=== PATIENT | male | born 1940 | race Caucasian/White ===

== ENCOUNTER 2017-10-24 21:24 | Inpatient (IN) | payer OTHER ==
[2017-10-24 21:30] VITALS: BMI 28.3
--- NOTE | 2017-10-24 21:58 | PDOC ---
Attending Attestation - HPI HPI: 10/24/17 23:16 Mr Argueta is a 77-year-old gentleman who presents to the ER via EMS with cervical collar in place Pt reports that he fell He has little memory of the events According to his alf pt fell from standing and struck the back of his head, sustained hematoma On evaluation, the patient complains that he had headache and some lightheadedness, now improved. Otherwise no physical complaints on evaluation. He had arrived to the ED with a c-collar in place, but removed it by himself and turned himself onto his side Remainder of history limited secondary to mental status. - Physicial Exam PE: 10/24/17 23:14 GENERAL: The patient is in no acute distress. Pt arrived to ED in c-collar, but has since removed collar and turned to his side. HEAD: Small 1cm x 1 cm hematoma to posterior scalp. EYES: PERRLA, EOMI, sclera anicteric, conjunctiva clear. ENT: Ears normal, nares patent, oropharynx clear without exudates. Moist mucous membranes. NECK: Cervical collar removed. Normal range of motion, supple without lymphadenopathy, JVD, or masses. No midline cervical tenderness. LUNGS: Breath sounds equal, clear to auscultation bilaterally. No wheezes, and no crackles. HEART:Regular rate and rhythm, normal S1 and S2 without murmur, rub or gallop. ABDOMEN: Soft, nontender, normoactive bowel sounds. No guarding, no rebound. No masses palpable. EXTREMITIES: Normal range of motion, no edema. No clubbing or cyanosis. No erythema, or tenderness. NEUROLOGICAL: Cranial nerves II through XII grossly intact. Normal speech. No focal neurological deficits. MUSCULOSKELETAL: Back non-tender to palpation, no CVA tenderness SKIN: Warm, Dry, normal turgor, no rashes or lesions noted. - Medical Decision Making 10/24/17 23:19 Documentation prepared by Verenice Servin, acting as medical artist for Yara Stoddard MD. <Verenice Servin - Last Filed: 10/24/17 23:14> - Resident Resident Name: Adilson Sanchez - ED Attending Attestation I have performed the following: I have examined & evaluated the patient, The case was reviewed & discussed with the resident, I agree w/resident's findings & plan, Exceptions are as noted - HPI HPI: 10/24/17 21:45 Mr Argueta is a 77-year-old gentleman who presents to the ER via EMS with cervical collar in place Pt reports that he fell He has little memory of the events According to his alf pt fell from standing and struck the back of his head, sustained hematoma - Medical Decision Making 10/25/17 00:37 77 yo M brought in to the ER s/p fall Pt has no memory of falling While examined him, he reports dizziness No chest pain On examination: Pt brought in to the ER with a cervical collar (which he removed) Pt has now vomited 3 times in the ER Repeatedly voiding small amounts Nursing placed mendoza cathether with return of > 500 cc urine RRR CTA No midline tenderness of the C/T/L spine No abd tenderness Pelvis is stable Pt moving all extremities, rolled over in bed Pt will need Labs CT head Pt has vomited multiple times Will do CT scan Will do EKG Will re assess 10/25/17 00:41 Laboratory Tests 10/24/17 10/24/17 10/24/17 20:26 20:26 20:26 WBC 12.3 H Hgb 13.3 Hct 39.8 Plt Count 105 L Neutrophils % 85.8 H Lymphocytes % 9.5 INR 0.98 Sodium 134 L Potassium 5.2 H Chloride 99 Carbon Dioxide 26 BUN 30 H Creatinine 1.9 H Random Glucose 282 H Creatine Kinase 48 Troponin I < 0.02 Urine Blood Urine Nitrite Ur Leukocyte Esterase Urine WBC (Auto) Urine RBC (Auto) 10/24/17 22:52 WBC Hgb Hct Plt Count Neutrophils % Lymphocytes % INR Sodium Potassium Chloride Carbon Dioxide BUN Creatinine Random Glucose Creatine Kinase Troponin I Urine Blood 1+ H Urine Nitrite Negative Ur Leukocyte Esterase Trace Urine WBC (Auto) 7 Urine RBC (Auto) [address] scans 10/25/17 00:41 Pt bp elevated Will need to be repeated pt place on monitor 10/25/17 01:01 Repeat blood pressure 235/100 Ordered for Labetolol Admitted to hospitalist service <Yara Stoddard - Last Filed: 10/29/17 23:20>
[2017-10-24 22:34] LABS: BASO % 0.2 % (0-2.0); HEMATOCRIT 39.8 % (35.4-49); HEMOGLOBIN 13.3 GM/dL (11.7-16.9); LYMPH % 9.5 % (8-40); MCH 27.6 pg (25.7-33.7); MCHC 33.5 g/dl (32.0-35.9); MEAN CELL VOLUME 82.3 fl (80-96); MEAN PLT VOLUME 9.7 fl (7.5-11.1); MONO % 3.5 % (3.8-10.2); NEUT % 85.8 % (42.8-82.8); PLATELET COUNT 105 K/MM3 (134-434); RBC 4.84 M/mm3 (4.00-5.60); RDW 15.7 % (11.9-15.9); WHITE BLOOD COUNT 12.3 K/mm3 (4.0-10.0)
--- NOTE | 2017-10-24 22:36 | PDOC ---
History of Present Illness - General Chief Complaint: Injury Stated Complaint: FALL Time Seen by Provider: 10/24/17 21:37 History Source: Patient Exam Limitations: Dementia - History of Present Illness Initial Comments: 10/24/17 22:30 Patient is a 77M with history of cardiac arrhythmias, depression, HLD, CAD s/p CABG, Alzheimer's disease, DM here today complaining of fall. Patient states that he does not know what happened, he only says that he was told he fell and that his head hurts. He denies chest pain, shortness of breath, nausea, vomiting. He denies pain in any extremities. History is limited by patient's mental status. Past History - Past Medical History Allergies/Adverse Reactions: Allergies Allergy/AdvReac Type Severity Reaction Status Date / Time No Known Allergies Allergy Verified 10/24/17 22:30 - Suicide/Smoking/Psychosocial Hx Smoking History: Unknown if ever smoked Have you smoked in the past 12 months: No Information on smoking cessation initiated: No Hx Alcohol Use: No Drug/Substance Use Hx: No Review of Systems - Review of Systems Comments:: 10/24/17 22:36 GENERAL/CONSTITUTIONAL: No fever or chills. No weakness. HEAD, EYES, EARS, NOSE AND THROAT: No change in vision. No sore throat. CARDIOVASCULAR: No chest pain or shortness of breath RESPIRATORY: No cough, wheezing, or hemoptysis. GASTROINTESTINAL: No nausea, vomiting, diarrhea or constipation. GENITOURINARY: No dysuria, frequency, or change in urination. MUSCULOSKELETAL: No joint or muscle swelling or pain. No neck or back pain. SKIN: No rash NEUROLOGIC: Positive for headache and loss of consciousness. Negative for change in strength/sensation. ENDOCRINE: No increased thirst. No abnormal weight change ALLERGIC/IMMUNOLOGIC: No hives or skin allergy. *Physical Exam - Vital Signs Last Vital Signs Temp Pulse Resp BP Pulse Ox 98.9 F 80 20 204/92 98 10/24/17 21:27 10/24/17 21:27 10/24/17 21:27 10/24/17 21:27 10/24/17 21:27 - Physical Exam Comments: 10/24/17 22:38 GENERAL: Awake, alert, and fully oriented, in no acute distress HEAD: Small hematoma on posterior aspect of head EYES: PERRLA, EOMI, sclera anicteric, conjunctiva clear ENT: Auricles normal inspection, hearing grossly normal, nares patent, oropharynx clear without exudates. Moist mucosa NECK: Normal ROM, supple, no lymphadenopathy, JVD, or masses, nontender midline LUNGS: No distress, speaks full sentences, clear to auscultation bilaterally HEART: Regular rate and rhythm, normal S1 and S2, no murmurs, rubs or gallops, peripheral pulses normal and equal bilaterally. ABDOMEN: Soft, nontender, normoactive bowel sounds. No guarding, no rebound. No masses EXTREMITIES: Normal inspection, Normal range of motion, no edema. No clubbing or cyanosis. Moves all extremities without pain NEUROLOGICAL: Cranial nerves II through XII grossly intact. Normal speech, no focal sensorimotor deficits SKIN: Warm, Dry, normal turgor, no rashes or lesions noted. ED Treatment Course - LABORATORY CBC & Chemistry Diagram: 10/24/17 20:26 10/24/17 20:26 - RADIOLOGY Radiology Studies Ordered: Category Date Time Status CERVICAL SPINE CT W/O CONTR [CT] Stat CT Scan 10/24/17 21:[address] WITHOUT CONTRAST [CT] Stat CT Scan 10/24/17 21:44 Ordered CHEST X-RAY PORTABLE* [RAD] Stat Radiology 10/24/17 21:44 Taken Medical Decision Making - Medical Decision Making 10/24/17 22:38 Patient is 77M with history of cardiac arrhythmias, depression, HLD, CAD s/p CABG, Alzheimer's disease, DM here today complaining of fall. Questionable drop syncope. Vital signs notable for hypertension. Patient has no focal neuro deficits, appears generally well but confused. DDx is broad due to lack of history from patient and includes vasovagal syncope, mechanical fall, PE, ACS arrhythmia. Will workup with CBC, CMP, UA, UC, CXR, EKG, Trop, D-dimer. Will image for trauma with CT head and cervical spine. 10/24/17 23:29 Laboratory Tests 10/24/17 10/24/17 10/24/17 20:26 20:26 20:26 WBC 12.3 H Hgb 13.3 Hct 39.8 Plt Count 105 L Neutrophils % 85.8 H D-Dimer 1188 H Sodium 134 L Potassium 5.2 H BUN 30 H Creatinine 1.9 H Random Glucose 282 H Urine Protein Urine Glucose (UA) Urine Nitrite Ur Leukocyte Esterase Urine WBC (Auto) Urine RBC (Auto) 10/24/17 22:52 WBC Hgb Hct Plt Count Neutrophils % D-Dimer Sodium Potassium BUN Creatinine Random Glucose Urine Protein 2+ H Urine Glucose (UA) 3+ H Urine Nitrite Negative Ur Leukocyte Esterase Trace Urine WBC (Auto) 7 Urine RBC (Auto) 10 CBC notable for leukocytosis. CMP notable for elevated Cr (no baseline), mild hyperkalemia to 5.2, UA positive. No gap. D-dimer positive to 1188, unable to do CTA at this point due to Cr level. Patient has vomited. Will treat with fluids and zofran. CT head/neck pending. Dry CT abdomen added. 10/24/17 23:37 CXR shows no acute acute cardiopulmonary process. 10/24/17 23:[address] Mccarthy. Pending head, neck, cervical ct. *DC/Admit/Observation/Transfer Diagnosis at time of Disposition: Fall - Discharge Dispostion Condition at time of disposition: Stable - Referrals Referrals: Yaya Rebolledo MD [Primary Care Provider] - - Patient Instructions - Post Discharge Activity
[2017-10-24 22:47] LABS: INR 0.98 (0.82-1.09); PROTHROMBIN TIME (PATIENT) 11.1 SEC (9.98-11.88)
[2017-10-24 22:58] LABS: URINE APPEARANCE CLEAR; URINE BILIRUBIN NEGATIVE (NEGATIVE); URINE BLOOD 1+ (NEGATIVE); URINE COLOR STRAW; URINE GLUCOSE (UA) 3+ (NEGATIVE); URINE KETONE NEGATIVE (NEGATIVE); URINE LEUK ESTERASE TRACE (NEGATIVE); URINE NITRITE NEGATIVE (NEGATIVE); URINE UROBILINOGEN NEGATIVE mg/dL (0.2-1.0)
[2017-10-24 23:02] LABS: URINE PROTEIN 2+ (NEGATIVE)
[2017-10-24 23:02] LABS: ALBUMIN 3.9 g/dl (3.4-5.0); ANION GAP 9 (8-16); BILIRUBIN,TOTAL 0.4 mg/dL (0.2-1.0); BLOOD UREA NITROGEN 30 mg/dL (7-18); CALCIUM 8.6 mg/dL (8.5-10.1); CHLORIDE 99 mmol/L (98-107); CO2 26 mmol/L (21-32); CREATININE 1.9 mg/dL (0.7-1.3); GLUCOSE,RANDOM 282 mg/dL (74-106); MAGNESIUM 1.7 mg/dL (1.8-2.4); POTASSIUM 5.2 mmol/L (3.5-5.1); SGOT/AST 14 U/L (15-37); SGPT/ALT 19 U/L (12-78); SODIUM 134 mmol/L (136-145); TOT PROT 8.1 g/dl (6.4-8.2)
[2017-10-24 23:05] LABS: ALK PHOS 62 U/L (45-117)
[2017-10-24 23:12] LABS: EPI CELLS RARE /HPF (FEW); URINE HYALINE CAST 1 /lpf
[2017-10-24] MEDS ORDERED: SODIUM CHLORIDE 1,000 ML IV STA (23:26)
[2017-10-24] MEDS ORDERED: ONDANSETRON 4 MG/2 ML VIAL IVPUSH ONE (23:26)
[2017-10-25] MEDS ORDERED: ONDANSETRON 4 MG/2 ML VIAL ONE (00:02)
--- NOTE | 2017-10-25 00:29 | PDOC ---
*Physical Exam - Vital Signs Last Vital Signs Temp Pulse Resp BP Pulse Ox 98.9 F 80 20 204/92 98 10/24/17 21:27 10/24/17 21:27 10/24/17 21:27 10/24/17 21:27 10/24/17 21:27 - Physical Exam Comments: 10/25/17 00:31 GENERAL: Awake, alert, and fully oriented, in no acute distress HEAD: 1 x 1 cm post scalp hematoma.No signs of trauma, normocephalic, atraumatic EYES: PERRLA, EOMI, sclera anicteric, conjunctiva clear ENT:Hearing grossly normal, nares patent, oropharynx clear without exudates. Moist mucosa NECK: Normal ROM, no JVD, or masses LUNGS: No distress, speaks full sentences, clear to auscultation bilaterally HEART: Regular rate and rhythm, normal S1 and S2, no murmurs, rubs or gallops, peripheral pulses normal and equal bilaterally. ABDOMEN: Soft, nontender, normoactive bowel sounds. No guarding, no rebound. No masses EXTREMITIES : Normal inspection, Normal range of motion, no edema. No clubbing or cyanosis. NEUROLOGICAL: Cranial nerves II through XII grossly intact. Normal speech, normal gait, no focal sensorimotor deficits Back: Absent C spine ttp. Absent bony deformity or spinal ttp. SKIN: Warm, Dry, normal turgor, no rashes or lesions noted ED Treatment Course - LABORATORY CBC & Chemistry Diagram: 10/24/17 20:26 10/24/17 20:26 - ADDITIONAL ORDERS Additional order review: Laboratory Results 10/24/17 10/24/17 10/24/17 22:52 20:26 20:26 PT with INR 11.10 INR 0.98 D-Dimer 1188 H Sodium 134 L Potassium 5.2 H Chloride 99 Carbon Dioxide 26 Anion Gap 9 BUN 30 H Creatinine 1.9 H Creat Clearance w eGFR 34.73 Random Glucose 282 H Calcium 8.6 Magnesium 1.7 L Total Bilirubin 0.4 AST 14 L ALT 19 Alkaline Phosphatase 62 Creatine Kinase 48 Troponin I < 0.02 Total Protein 8.1 Albumin 3.9 Urine Color Straw Urine Appearance Clear Urine pH 7.0 Ur Specific [place] 1.009 Urine Protein 2+ H Urine Glucose (UA) 3+ H Urine Ketones Negative Urine Blood 1+ H Urine Nitrite Negative Urine Bilirubin Negative Urine Urobilinogen Negative Ur Leukocyte Esterase Trace Urine WBC (Auto) 7 Urine RBC (Auto) 10 Ur Epithelial Cells Rare Hyaline Casts 1 10/24/17 20:26 RBC 4.84 MCV 82.3 MCHC 33.5 RDW 15.7 MPV 9.7 Neutrophils % 85.8 H Lymphocytes % 9.5 Monocytes % 3.5 L Eosinophils % 1.0 Basophils % 0.2 Medical Decision Making - Medical Decision Making 10/25/17 00:[address] Sanchez 77 yo M with h/o cardiac arrhythmias, depression, HLD, CAD s/p CABG, Alzheimer' s disease, and DM who presents with closed head injury s/p unwitnessed mechanical fall. Patient hypertensive on arrival () Patient poor historian given baseline dementia, but are considering broad differential of cardiac dysarythmia, vasovagal syncope, PE, ACS arrhythmia. ED Course notable for leukocytosis 12.3. D-dimer 1188, but with kidney impairment with Cr 1.9 ( no baseline). Unable to obtain CTA Chest. Trop Neg. Given Labetolol. Patient pending CT AP, CT C SPINE, CT HEAD ED Course: CT AP: No acute pathology. Diverticulosis with absent diverticulitis. Tiny gallstones. 10/25/17 00:55 CT HEAD:Right sided mastoid effusion consistent with mastoiditis. Left posterior scalp edema without skull fracture or intracranial hemorrhage. C-SPINE: Unremarkable. Spoke to Dr. Camarillo. Will admit to tele/obs. *DC/Admit/Observation/Transfer Diagnosis at time of Disposition: Fall - Discharge Dispostion Condition at time of disposition: Stable Admit: Yes - Referrals Referrals: Yaya Rebolledo MD [Primary Care Provider] - - Patient Instructions - Post Discharge Activity
[2017-10-25] MEDS ORDERED: LABETALOL HCL 5 MG/1 ML (100MG/20 ML VIAL) IVPUSH ONE ×2 (01:01→01:02)
[2017-10-25] MEDS ORDERED: SODIUM CHLORIDE 1,000 ML IV SCH ×2 (01:15→05:00)
[2017-10-25] MEDS ORDERED: MAGNESIUM 2GM/50ML STERILE WATER IVPB IVPB ONE (01:49)
--- NOTE | 2017-10-25 02:05 | HP ---
CHIEF COMPLAINT: fall PCP: HISTORY OF PRESENT ILLNESS: This is a 77 year old male with a history of cardiac arrhythmias, depression, HLD, CAD s/p CABG, Alzheimer's disease, and DM who presents to emergency room after unwitnessed fall at group home (from [facility]). History vague and patient is poor historian without recollection of the fall. As per nurse he was found on floor with head injury. Patient is alert but not oriented to place/time, he denies bodily pain, chest pain, ROMERO, sob, abdominal pain, n, v, leg swelling or any associated symptoms. ER course was notable for: BP 220/95. Tachycardic. ECG no evidence of st/t wave abnormalities. CXR poor inspiratory effort with cadiomegaly Recent Travel: no PAST MEDICAL HISTORY: cardiac arrhythmias, depression, HLD, CAD s/p CABG, Alzheimer's disease, and DM PAST SURGICAL HISTORY: CABG Social History: Smoking:no Alcohol:no Drugs: no Family History: Allergies No Known Allergies Allergy (Verified 10/24/17 22:30) HOME MEDICATIONS: REVIEW OF SYSTEMS as above; poor historian PHYSICAL EXAMINATION Vital Signs - 24 hr 10/24/17 10/25/17 10/25/17 21:27 00:55 01:38 Temperature 98.9 F Pulse Rate 80 Pulse Rate [ 85 93 H Apical] Respiratory 20 16 16 Rate Blood Pressure 204/92 Blood Pressure 220/95 191/78 [Right Arm] O2 Sat by Pulse 98 100 100 Oximetry (%) GENERAL: Awake, alert, and fully oriented, in no acute distress. HEAD: Normal with no signs of trauma. small area of swelling on top of head; no open wound; ecchymosis NECK: Normal range of motion, supple without lymphadenopathy, JVD, or masses. LUNGS: Breath sounds equal, clear to auscultation bilaterally. No wheezes, and no crackles. No accessory muscle use. HEART: Regular rate and rhythm, normal S1 and S2 without murmur, rub or gallop. ABDOMEN: Soft, nontender, not distended, normoactive bowel sounds, no guarding, no rebound, no masses. No hepatomegaly or splenomegaly. MUSCULOSKELETAL: Normal range of motion at all joints. No bony deformities or tenderness. No CVA tenderness. UPPER EXTREMITIES: 2+ pulses, warm, well-perfused. No cyanosis. No clubbing. No peripheral edema. LOWER EXTREMITIES: 2+ pulses, warm, well-perfused. No calf tenderness. No peripheral edema. NEUROLOGICAL: oriented to self; not place or time; follows commands; no facial droop or tongue deviation; strength in arms/legs 5/5 ; sensation intact; reflexes 2+; gait not observed PSYCHIATRIC: Cooperative. Good eye contact. Appropriate mood and affect. SKIN: Warm, dry, normal turgor, no rashes or lesions noted, normal capillary refill. Laboratory Results - last 24 hr 10/24/17 10/24/17 10/24/17 20:26 20:26 20:26 WBC 12.3 H RBC 4.84 Hgb 13.3 Hct 39.8 MCV 82.3 MCH 27.6 MCHC 33.5 RDW 15.7 Plt Count 105 L MPV 9.7 Neutrophils % 85.8 H Lymphocytes % 9.5 Monocytes % 3.5 L Eosinophils % 1.0 Basophils % 0.2 PT with INR 11.10 INR 0.98 D-Dimer 1188 H Sodium 134 L Potassium 5.2 H Chloride 99 Carbon Dioxide 26 Anion Gap 9 BUN 30 H Creatinine 1.9 H Creat Clearance w eGFR 34.73 Random Glucose 282 H Calcium 8.6 Magnesium 1.7 L Total Bilirubin 0.4 AST 14 L ALT 19 Alkaline Phosphatase 62 Creatine Kinase 48 Troponin I < 0.02 Total Protein 8.1 Albumin 3.9 Urine Color Urine Appearance Urine pH Ur Specific [place] Urine Protein Urine Glucose (UA) Urine Ketones Urine Blood Urine Nitrite Urine Bilirubin Urine Urobilinogen Ur Leukocyte Esterase Urine WBC (Auto) Urine RBC (Auto) Ur Epithelial Cells Hyaline Casts 10/24/17 22:52 WBC RBC Hgb Hct MCV MCH MCHC RDW Plt Count MPV Neutrophils % Lymphocytes % Monocytes % Eosinophils % Basophils % PT with INR INR D-Dimer Sodium Potassium Chloride Carbon Dioxide Anion Gap BUN Creatinine Creat Clearance w eGFR Random Glucose Calcium Magnesium Total Bilirubin AST ALT Alkaline Phosphatase Creatine Kinase Troponin I Total Protein Albumin Urine Color Straw Urine Appearance Clear Urine pH 7.0 Ur Specific [place] 1.009 Urine Protein 2+ H Urine Glucose (UA) 3+ H Urine Ketones Negative Urine Blood 1+ H Urine Nitrite Negative Urine Bilirubin Negative Urine Urobilinogen Negative Ur Leukocyte Esterase Trace Urine WBC (Auto) 7 Urine RBC (Auto) 10 Ur Epithelial Cells Rare Hyaline Casts 1 ASSESSMENT/PLAN: 77 yo M with h/o cardiac arrhythmias, depression, HLD, CAD s/p CABG, Alzheimer' s disease, and DM who presents with closed head injury s/p unwitnessed mechanical fall. #s/p unwitnessed mechanical fall with closed head injury r/o stroke -head CT showing soft tissue swelling; +mastoiditis right side; neg fracture; bleed; shift -neck CT negative -repeat CT if any change in mental status -echo -carotid -fall precautions #hypertensive emergency? (due to kidney damage) vs urgency -labetelol given in ER -will give clonidine 0.mg po once; -cont home meds #CAD s/p CABG -cont BB -hold ASA ; watch for bleed #SALLY: may be due to htn -urine lytes; -renal bladder US -gentle hydration #DM: -insulin SS -BGM FEN: Fluids: nsx 1bag @42mls /hr Electrolytes: hypomagnesemia; replace/minoo; mild hyperkalemia; trend Diet: cardiac VTE: scds Disposition: monitor cardiac tele Case discussed with attending Dr. Marquise Mccarthy PGY-2 Problem List - Problem (1) Altered mental state Code(s): R41.82 - ALTERED MENTAL STATUS, UNSPECIFIED (2) SALLY (acute kidney injury) Code(s): N17.9 - ACUTE KIDNEY FAILURE, UNSPECIFIED (3) Hypomagnesemia Code(s): E83.42 - HYPOMAGNESEMIA (4) Hyperkalemia Code(s): E87.5 - HYPERKALEMIA (5) Hypertensive urgency Code(s): I16.0 - HYPERTENSIVE URGENCY (6) Fall Code(s): W19.XXXA - UNSPECIFIED FALL, INITIAL ENCOUNTER Visit type - Emergency Visit Emergency Visit: Yes ED Registration Date: 10/25/17 Care time: The patient presented to the Emergency Department on the above date and was hospitalized for further evaluation of their emergent condition. - New Patient This patient is new to me today: Yes Date on this admission: 10/25/17 - Critical Care Critical Care patient: No
[2017-10-25] MEDS ORDERED: amLODIPine BESYLATE 5 MG TABLET (FP) PO ONE (03:06)
[2017-10-25] MEDS ORDERED: cloNIDine HCL 0.1 MG TABLET PO ONE (03:33)
--- NOTE | 2017-10-25 05:00 | PN ---
Teaching Attending Note Name of Resident: Sarah Mccarthy ATTENDING PHYSICIAN STATEMENT I saw and evaluated the patient. Chart, data, imaging reviewed. I reviewed the resident's note and discussed the case with the resident. I agree with the resident's findings and plan as documented. SUBJECTIVE: 77 yo M with h/o arrhythmias, depression, HLD, CAD s/p CABG, Dementia, presented to hospital [facility] Patient had struck his head when he fell, has bruising to posterior scalp. Uncertain if there was loss of consciousness or not. Reported one episode of vomiting and some diarrhea. No focal weakness. CT of head did not show any intracranial bleeding. OBJECTIVE: Last Vital Signs Temp Pulse Resp BP Pulse Ox 99.3 F 91 H 16 157/75 100 10/25/17 01:11 10/25/17 04:44 10/25/17 04:44 10/25/17 04:44 10/25/17 01:38 General - pleasant, NAD HEENT- no tenderness to palpation Neck supple, no masses CV-s1+s2+ RRR Chest - cta b/l abdomen- soft, nontender Neuro- AAox2, follows commands, fluent speech Abnormal Lab Results 10/24/17 10/24/17 10/24/17 20:26 20:26 20:26 WBC 12.3 H Plt Count 105 L Neutrophils % 85.8 H Monocytes % 3.5 L D-Dimer 1188 H Sodium 134 L Potassium 5.2 H BUN 30 H Creatinine 1.9 H Random Glucose 282 H Magnesium 1.7 L AST 14 L Urine Protein Urine Glucose (UA) Urine Blood 10/24/17 22:52 WBC Plt Count Neutrophils % Monocytes % D-Dimer Sodium Potassium BUN Creatinine Random Glucose Magnesium AST Urine Protein 2+ H Urine Glucose (UA) 3+ H Urine Blood 1+ H CT of head- no intracranial bleeding noted ASSESSMENT AND PLAN: #Mechanical fall with trauma to head but no intracranial bleeding. Cannot r/o syncope a patient has underlying dementia and is not a reliable historian. -admit to telemetry -observation -transthoracic echo -carotid duplex b/l -fall precautions -bed rest -physical therapy evaluation -consider to repeat CT scan of head in 24hrs to ensure there is no intracranial hematoma #Hypertensive urgency- BP improved to 157/75 after clonidone. -monitor BP closely -restart home anti-HTN meds -2g Na diet #SALLY -send UA, urine lytes, urine cr -renal U/S -gentle IV fluid hydration #DVT ppx- SCDs
[2017-10-25] MEDS: INSULIN SLIDING SCALE (NOVOLOG) 1 VIAL SQ SCH ×4 (06:53→21:42)
[2017-10-25 08:03] LABS: URINE CREATININE 21.8 mg/dL (20-370)
[2017-10-25 08:32] LABS: BASO % 0.2 % (0-2.0); EOS % 0.6 % (0-4.5); HEMATOCRIT 35.2 % (35.4-49); HEMOGLOBIN 11.8 GM/dL (11.7-16.9); LYMPH % 11.9 % (8-40); MCH 27.3 pg (25.7-33.7); MCHC 33.5 g/dl (32.0-35.9); MEAN CELL VOLUME 81.5 fl (80-96); MEAN PLT VOLUME 9.4 fl (7.5-11.1); MONO % 5.9 % (3.8-10.2); NEUT % 81.4 % (42.8-82.8); PLATELET COUNT 108 K/MM3 (134-434); RBC 4.32 M/mm3 (4.00-5.60); RDW 15.7 % (11.9-15.9); WHITE BLOOD COUNT 9.8 K/mm3 (4.0-10.0)
[2017-10-25 08:49] LABS: ALBUMIN 3.2 g/dl (3.4-5.0); ALK PHOS 51 U/L (45-117); ANION GAP 10 (8-16); BILIRUBIN,TOTAL 0.4 mg/dL (0.2-1.0); BLOOD UREA NITROGEN 32 mg/dL (7-18); CALCIUM 8.6 mg/dL (8.5-10.1); CHLORIDE 99 mmol/L (98-107); CO2 27 mmol/L (21-32); CREATININE 1.9 mg/dL (0.7-1.3); GLUCOSE,RANDOM 216 mg/dL (74-106); MAGNESIUM 2.3 mg/dL (1.8-2.4); PHOSPHOROUS 3.4 mg/dL (2.5-4.9); POTASSIUM 5.1 mmol/L (3.5-5.1); SGOT/AST 13 U/L (15-37); SGPT/ALT 16 U/L (12-78); SODIUM 136 mmol/L (136-145); TOT PROT 7.1 g/dl (6.4-8.2)
[2017-10-25] MEDS: RANOLAZINE E.R. 500 MG TABLET (FP) PO SCH ×2 (09:14→21:43)
[2017-10-25] MEDS: ESCITALOPRAM OXALATE 10 MG TABLET (FP) PO SCH (09:14)
[2017-10-25] MEDS ORDERED: hydrALAZINE HCL 20 MG/ML VIAL IVPUSH PRN (09:22)
[2017-10-25] MEDS ORDERED: ASPIRIN 81 MG CHEWABLE TABLETS PO SCH (10:00)
[2017-10-25] MEDS ORDERED: LOSARTAN POTASSIUM 50 MG TABLET (FP) PO SCH (10:00)
[2017-10-25] MEDS ORDERED: ATENOLOL 50 MG TABLET (FP) PO SCH (10:00)
[2017-10-25] MEDS: amLODIPine BESYLATE 5 MG TABLET (FP) PO SCH (10:54)
--- NOTE | 2017-10-25 11:07 | EKG ---
Test Reason : Blood Pressure : / mmHG Vent. Rate : 083 BPM Atrial Rate : 083 BPM P-R Int : 256 ms QRS Dur : 092 ms QT Int : 386 ms P-R-T Axes : 079 035 082 degrees QTc Int : 453 ms SINUS RHYTHM WITH 1ST DEGREE A-V BLOCK POSSIBLE INFERIOR INFARCT , AGE UNDETERMINED ABNORMAL ECG NO PREVIOUS ECGS AVAILABLE Confirmed by REBEKA GALVAN MD ([id number]) on 10/25/2017 11:07:28 AM Referred By: Confirmed By:REBEKA GALVAN MD
[2017-10-25] MEDS: ACETAMINOPHEN 325 MG TABLET (FP) PO PRN (15:00)
[2017-10-25] MEDS ORDERED: QUEtiapine FUMARATE 25 MG TABLET (FP) PO PRN (16:04)
--- NOTE | 2017-10-25 16:10 | PN ---
Teaching Attending Note Name of Resident: Lucila Estes SUBJECTIVE: Patient seen and examined. Oriented to self, to son at bedside, not to place, thought is [place], long-term memory relatively intact. Denies any pain or new complaints. OBJECTIVE: Vital Signs Period Temp Pulse Resp BP Sys/Reynoso Pulse Ox Last 24 Hr 98.8 F-99.4 F 70-93 16-20 105-220/48-95 97-100 Intake & Output 10/22/17 10/23/17 10/24/17 10/25/17 23:59 23:59 23:59 23:59 Intake Total 160 Output Total 1500 600 Balance -1500 -440 Weight 165 lb 165 lb General: restless but directable, trying to get out of bed, no acute distress CVS:S1S2 regular Chest: CTAB, no rales or wheezing Abdomen:soft, NT, ND, positive bowel sounds, no suprapubic fullness or tenderness extremities: no edema Skin: decreased turgor Dry mucous membrane HEENT: unable to palpate hematoma NEuro; AA, oriented to person, family at bedside, PERRL, facial symmetry and power intact, power 5/5, sensation exam limited Home Medication List Medication Instructions Recorded Confirmed Type Aspirin [ASA -] 81 mg PO DAILY 10/25/17 10/25/17 History Atenolol [Tenormin -] 50 mg PO DAILY 10/25/17 10/25/17 History Ergocalciferol [Vitamin D2] 50,000 unit PO Q7D@1000 10/25/17 10/25/17 History Escitalopram Oxalate [Lexapro -] 10 mg PO DAILY 10/25/17 10/25/17 History Fluticasone Propionate [Flovent 50 mcg IH DAILY 10/25/17 10/25/17 History Diskus] Glipizide 10 mg PO DAILY 10/25/17 10/25/17 History Linagliptin [Tradjenta] 5 mg PO DAILY 10/25/17 10/25/17 History Loperamide HCl [Imodium A-D] 2 mg PO DAILY 10/25/17 10/25/17 History Losartan Potassium [Cozaar] 100 mg PO DAILY 10/25/17 10/25/17 History [place]-3 Fatty Acids [[place]-3] 2,000 mg PO BID 10/25/17 10/25/17 History Polyvinyl Alcohol [Artificial 1 drop OP DAILY 10/25/17 10/25/17 History Tears] Pravastatin Sodium [Pravachol (Nf)] 80 mg PO HS 10/25/17 10/25/17 History Ranolazine [Ranexa] 500 mg PO BID 10/25/17 10/25/17 History Rivastigmine [Exelon Patch 9.5 1 each TD DAILY 10/25/17 10/25/17 History mg/24 Hours] Trazodone HCl 50 mg PO HS 10/25/17 10/25/17 History Active Medications Generic Name Dose Route Start Last Admin Trade Name Freq PRN Reason Stop Dose Admin Acetaminophen 650 mg 10/25/17 01:08 Tylenol - PO Q4H PRN PAIN Amlodipine Besylate 5 mg 10/25/17 10:00 10/25/17 10:54 Norvasc - PO Not Given DAILY [facility] Atorvastatin Calcium 20 mg 10/25/17 22:00 Lipitor - PO [facility] Ergocalciferol 50,000 unit 10/29/17 10:00 Drisdol - PO Th@1000 [facility] Escitalopram Oxalate 10 mg 10/25/17 10:00 10/25/17 09:14 Lexapro - PO 10 mg DAILY [facility] Administration Hydralazine HCl 10 mg 10/25/17 09:22 Apresoline Injection - IVPUSH Q6H PRN HYPERTENSION Sodium Chloride 1,000 mls @ 42 mls/hr 10/25/17 05:00 10/25/17 11:00 Normal Saline - IV 10/26/17 04:49 42 mls/hr ASDIR [facility] Administration Insulin Aspart 1 vial 10/25/17 07:00 10/25/17 14:34 Novolog Vial Sliding Scale - SQ 6 units ACHS [facility] Administration Protocol Metoprolol Tartrate 25 mg 10/25/17 19:00 Lopressor - PO Q12H [facility] Mometasone Furoate 1 puff 10/25/17 22:00 Asmanex 220mcg - IH [facility] Quetiapine Fumarate 12.5 mg 10/25/17 16:04 Seroquel - PO Q12H PRN AGITATION Ranolazine 500 mg 10/25/17 10:00 10/25/17 09:14 Ranexa - PO 500 mg BID [facility] Administration Rivastigmine 1 each 10/25/17 10:00 Exelon Patch 9.5 Mg/24 Hours - TD DAILY [facility] Trazodone HCl 50 mg 10/25/17 19:00 Desyrel - PO 1900 [facility] Laboratory Results - last 24 hr 10/24/17 10/24/17 10/24/17 20:26 20:26 20:26 WBC 12.3 H RBC 4.84 Hgb 13.3 Hct 39.8 MCV 82.3 MCH 27.6 MCHC 33.5 RDW 15.7 Plt Count 105 L MPV 9.7 Neutrophils % 85.8 H Lymphocytes % 9.5 Monocytes % 3.5 L Eosinophils % 1.0 Basophils % 0.2 PT with INR 11.10 INR 0.98 D-Dimer 1188 H Sodium 134 L Potassium 5.2 H Chloride 99 Carbon Dioxide 26 Anion Gap 9 BUN 30 H Creatinine 1.9 H Creat Clearance w eGFR 34.73 POC Glucometer Random Glucose 282 H Hemoglobin A1c % Calcium 8.6 Phosphorus Magnesium 1.7 L Total Bilirubin 0.4 AST 14 L ALT 19 Alkaline Phosphatase 62 Creatine Kinase 48 Troponin I < 0.02 Total Protein 8.1 Albumin 3.9 Urine Color Urine Appearance Urine pH Ur Specific [place] Urine Protein Urine Glucose (UA) Urine Ketones Urine Blood Urine Nitrite Urine Bilirubin Urine Urobilinogen Ur Leukocyte Esterase Urine WBC (Auto) Urine RBC (Auto) Ur Epithelial Cells Hyaline Casts Ur Random Sodium Urine Creatinine 10/24/17 10/25/17 10/25/17 22:52 04:15 06:29 WBC RBC Hgb Hct MCV MCH MCHC RDW Plt Count MPV Neutrophils % Lymphocytes % Monocytes % Eosinophils % Basophils % PT with INR INR D-Dimer Sodium Potassium Chloride Carbon Dioxide Anion Gap BUN Creatinine Creat Clearance w eGFR POC Glucometer 220 Random Glucose Hemoglobin A1c % Calcium Phosphorus Magnesium Total Bilirubin AST ALT Alkaline Phosphatase Creatine Kinase Troponin I Total Protein Albumin Urine Color Straw Urine Appearance Clear Urine pH 7.0 Ur Specific [place] 1.009 Urine Protein 2+ H Urine Glucose (UA) 3+ H Urine Ketones Negative Urine Blood 1+ H Urine Nitrite Negative Urine Bilirubin Negative Urine Urobilinogen Negative Ur Leukocyte Esterase Trace Urine WBC (Auto) 7 Urine RBC (Auto) 10 Ur Epithelial Cells Rare Hyaline Casts 1 Ur Random Sodium 136 Urine Creatinine 21.8 10/25/17 10/25/17 10/25/17 07:45 07:45 09:50 WBC 9.8 RBC 4.32 Hgb 11.8 D Hct 35.2 L MCV 81.5 MCH 27.3 MCHC 33.5 RDW 15.7 Plt Count 108 L MPV 9.4 Neutrophils % 81.4 Lymphocytes % 11.9 D Monocytes % 5.9 Eosinophils % 0.6 Basophils % 0.2 PT with INR INR D-Dimer Sodium 136 Potassium 5.1 Chloride 99 Carbon Dioxide 27 Anion Gap 10 BUN 32 H Creatinine 1.9 H Creat Clearance w eGFR 34.73 POC Glucometer Random Glucose 216 H D Hemoglobin A1c % 6.7 H Calcium 8.6 Phosphorus 3.4 Magnesium 2.3 D Total Bilirubin 0.4 AST 13 L ALT 16 Alkaline Phosphatase 51 Creatine Kinase Troponin I Total Protein 7.1 Albumin 3.2 L Urine Color Urine Appearance Urine pH Ur Specific [place] Urine Protein Urine Glucose (UA) Urine Ketones Urine Blood Urine Nitrite Urine Bilirubin Urine Urobilinogen Ur Leukocyte Esterase Urine WBC (Auto) Urine RBC (Auto) Ur Epithelial Cells Hyaline Casts Ur Random Sodium Urine Creatinine 10/25/17 11:09 WBC RBC Hgb Hct MCV MCH MCHC RDW Plt Count MPV Neutrophils % Lymphocytes % Monocytes % Eosinophils % Basophils % PT with INR INR D-Dimer Sodium Potassium Chloride Carbon Dioxide Anion Gap BUN Creatinine Creat Clearance w eGFR POC Glucometer 268 Random Glucose Hemoglobin A1c % Calcium Phosphorus Magnesium Total Bilirubin AST ALT Alkaline Phosphatase Creatine Kinase Troponin I Total Protein Albumin Urine Color Urine Appearance Urine pH Ur Specific [place] Urine Protein Urine Glucose (UA) Urine Ketones Urine Blood Urine Nitrite Urine Bilirubin Urine Urobilinogen Ur Leukocyte Esterase Urine WBC (Auto) Urine RBC (Auto) Ur Epithelial Cells Hyaline Casts Ur Random Sodium Urine Creatinine CT brain repeat today: unchanged, left scalp hematoma CT A/P: cholelithiasis, minimal to mild splenomegaly EKG QTC noted ASSESSMENT AND PLAN: 77 yom with Dementia, NIDDM, HTN, 'cardiac arrhythmia', Admitted with unwitnessed fall, Hypertensive urgency, SALLY vs CKD stage III. -Unwitnessed fall, less likely syncope -Left posterior parietal scalp hematoma -AMS, suspect encephalopathy, from fall/head trauma/dehydration/delirium over underlying dementia -SALLY vs CKD stage III, ?Baseline -HTN -"cardiac arrhythmia" -CAD s/p CABG -NIDDM -Dementia Plan: repeat CT brain today neg for new concerns. TElemetry, 2d echo, carotid dopplers. Neuro checks. Similar prior episodes of confusion/hallucinatin a year ago , that was felt to be his progressive dementia, resulting in NH placement. Per son, mental status improved since. Frequent orientation to environment, continue home psych meds. Low dose seroquel prn for agitation with QTc monitoring. No recent creatinine, [place] records reviewed, last CBC in 08/2017 but no BMP, will confirm. S/p mendoza placement in ED with >500 ml urine, ?obstructive component, but creatinine unchanged. renal ultrasound. Patient removed mendoza, will place on bladder scan q6h and straight cath prn as high risk of pulling at mendoza and resultant trauma. IVF and trend Cr. Change atenolol to metoprolol given renal insufficiency. Continue home psych meds. DVTPPX with SCDs when in bed. PT eval. Antcipate atleast 2 midnight stays given SALLY, need for IV hydration, AMS, neuro checks, Hypertensive urgency and safe disposition. Plan discussed with patient in detail, all questions answered.
[2017-10-25] MEDS ORDERED: HALOPERIDOL LACTATE 5 MG/ML IM ONE ×2 (17:04→20:45)
[2017-10-25] MEDS: RIVASTIGMINE 9.5 MG/24 HOURS TRANSDERMAL PATCH TD SCH (19:10)
[2017-10-25] MEDS: METOPROLOL TARTRATE 25 MG TABLET (FP) PO SCH (20:23)
[2017-10-25] MEDS: traZODone HCL 50 MG TABLET (FP) PO SCH (20:23)
[2017-10-25] MEDS ORDERED: HALOPERIDOL LACTATE 5 MG/ML ONE (20:39)
[2017-10-25] MEDS: MOMETASONE FUROATE 220 MCG/IH INHALER IH SCH (21:39)
[2017-10-25] MEDS: ATORVASTATIN CA 20 MG TABLET (FP) PO SCH (21:42)
[2017-10-25] MEDS ORDERED: traZODone HCL 50 MG TABLET (FP) PO SCH (22:00)
[2017-10-26] MEDS: INSULIN SLIDING SCALE (NOVOLOG) 1 VIAL SQ SCH ×4 (06:26→21:48)
[2017-10-26] MEDS: METOPROLOL TARTRATE 25 MG TABLET (FP) PO SCH ×2 (06:26→18:14)
[2017-10-26 07:06] LABS: BASO % 0.2 % (0-2.0); EOS % 1.7 % (0-4.5); HEMATOCRIT 36.2 % (35.4-49); HEMOGLOBIN 12.4 GM/dL (11.7-16.9); LYMPH % 20.9 % (8-40); MCH 28.3 pg (25.7-33.7); MCHC 34.2 g/dl (32.0-35.9); MEAN CELL VOLUME 82.7 fl (80-96); MEAN PLT VOLUME 9.7 fl (7.5-11.1); NEUT % 68.2 % (42.8-82.8); PLATELET COUNT 119 K/MM3 (134-434); RBC 4.38 M/mm3 (4.00-5.60); RDW 15.8 % (11.9-15.9); WHITE BLOOD COUNT 8.7 K/mm3 (4.0-10.0)
[2017-10-26 07:27] LABS: ALBUMIN 3.6 g/dl (3.4-5.0); ALK PHOS 56 U/L (45-117); ANION GAP 9 (8-16); BILIRUBIN,TOTAL 0.6 mg/dL (0.2-1.0); BLOOD UREA NITROGEN 41 mg/dL (7-18); CALCIUM 8.7 mg/dL (8.5-10.1); CHLORIDE 102 mmol/L (98-107); CO2 27 mmol/L (21-32); CREATININE 2.4 mg/dL (0.7-1.3); GLUCOSE,RANDOM 163 mg/dL (74-106); PHOSPHOROUS 3.6 mg/dL (2.5-4.9); POTASSIUM 5.6 mmol/L (3.5-5.1); SGOT/AST 25 U/L (15-37); SGPT/ALT 17 U/L (12-78); SODIUM 138 mmol/L (136-145); TOT PROT 7.5 g/dl (6.4-8.2)
[2017-10-26] MEDS ORDERED: PT OWN MED DRAWER 7, Y5N ONE ×2 (07:54→17:28)
[2017-10-26] MEDS ORDERED: DEXTROSE 10%-WATER 500 ML INFUS.BAG IV ONE (08:30)
[2017-10-26] MEDS ORDERED: SODIUM POLYSTYRENE SULFONATE 15 GM/60 ML BOTTLE PO ONE (08:35)
[2017-10-26] MEDS ORDERED: INSULIN REGULAR HUMAN 100 UNITS/ML *VIAL IV ONE (08:35)
[2017-10-26] MEDS ORDERED: CALCIUM GLUCONATE 10% - 1,000 MG/10 ML VIAL IVPB ONE (08:45)
[2017-10-26] MEDS ORDERED: INSULIN REGULAR IV ONE (08:55)
[2017-10-26] MEDS ORDERED: DEXTROSE 10% IV ONE (08:55)
[2017-10-26] MEDS ORDERED: WATER IV ONE (08:55)
[2017-10-26] MEDS: amLODIPine BESYLATE 5 MG TABLET (FP) PO SCH (09:44)
[2017-10-26] MEDS: ESCITALOPRAM OXALATE 10 MG TABLET (FP) PO SCH (09:44)
[2017-10-26] MEDS: RANOLAZINE E.R. 500 MG TABLET (FP) PO SCH ×2 (09:45→21:44)
[2017-10-26] MEDS: RIVASTIGMINE 9.5 MG/24 HOURS TRANSDERMAL PATCH TD SCH (09:48)
[2017-10-26] MEDS ORDERED: SODIUM CHLORIDE 500 ML IV STA (10:04)
--- NOTE | 2017-10-26 12:31 | PN ---
Teaching Attending Note Name of Resident: Wayne Singer ATTENDING PHYSICIAN STATEMENT Time of evaluation: 8:45 AM I saw and evaluated the patient. I reviewed the resident's note and discussed the case with the resident. I agree with the resident's findings and plan as documented. SUBJECTIVE: Patient seen and examined. Confused, oriented to self, restless, attempting to pick at bed, trying to get out, denies pain, unable to do full ROS. OBJECTIVE: Vital Signs Period Temp Pulse Resp BP Sys/Reynoso Pulse Ox Last 24 Hr 98.1 F-99.0 F 71-89 18-18 133-157/70-87 98-98 Intake & Output 10/23/17 10/24/17 10/25/17 10/26/17 23:59 23:59 23:59 23:59 Intake Total 370 210 Output Total 1500 600 Balance -1500 -230 210 Weight 165 lb 165 lb General: restless, agitated, in bed CVS;S1S2 regular Chest: decreased effort, no rales or wheezing appreciated Abdomen:soft, NT, ND, positive bowel sounds extremities: no edema neuro AA, oriented to self only, confused, restless/agitated, trying to get out of bed, moves all extremities symmetrically though generalized weakness noted, right facial sagging noted that resolved when checked for facial muscles power, PERRL, further exam limited Home Medication List Medication Instructions Recorded Confirmed Type Aspirin [ASA -] 81 mg PO DAILY 10/25/17 10/25/17 History Atenolol [Tenormin -] 50 mg PO DAILY 10/25/17 10/25/17 History Ergocalciferol [Vitamin D2] 50,000 unit PO Q7D@1000 10/25/17 10/25/17 History Escitalopram Oxalate [Lexapro -] 10 mg PO DAILY 10/25/17 10/25/17 History Fluticasone Propionate [Flovent 50 mcg IH DAILY 10/25/17 10/25/17 History Diskus] Glipizide 10 mg PO DAILY 10/25/17 10/25/17 History Linagliptin [Tradjenta] 5 mg PO DAILY 10/25/17 10/25/17 History Loperamide HCl [Imodium A-D] 2 mg PO DAILY 10/25/17 10/25/17 History Losartan Potassium [Cozaar] 100 mg PO DAILY 10/25/17 10/25/17 History [place]-3 Fatty Acids [[place]-3] 2,000 mg PO BID 10/25/17 10/25/17 History Polyvinyl Alcohol [Artificial 1 drop OP DAILY 10/25/17 10/25/17 History Tears] Pravastatin Sodium [Pravachol (Nf)] 80 mg PO HS 10/25/17 10/25/17 History Ranolazine [Ranexa] 500 mg PO BID 10/25/17 10/25/17 History Rivastigmine [Exelon Patch 9.5 1 each TD DAILY 10/25/17 10/25/17 History mg/24 Hours] Trazodone HCl 50 mg PO HS 10/25/17 10/25/17 History Active Medications Generic Name Dose Route Start Last Admin Trade Name Freq PRN Reason Stop Dose Admin Acetaminophen 650 mg 10/25/17 01:08 10/25/17 15:00 Tylenol - PO 650 mg Q4H PRN Administration PAIN Amlodipine Besylate 5 mg 10/25/17 10:00 10/26/17 09:44 Norvasc - PO 5 mg DAILY [facility] Administration Atorvastatin Calcium 20 mg 10/25/17 22:00 10/25/17 21:42 Lipitor - PO 20 mg HS [facility] Administration Ergocalciferol 50,000 unit 10/29/17 10:00 Drisdol - PO Th@1000 [facility] Escitalopram Oxalate 10 mg 10/25/17 10:00 10/26/17 09:44 Lexapro - PO 10 mg DAILY [facility] Administration Hydralazine HCl 10 mg 10/25/17 09:22 Apresoline Injection - IVPUSH Q6H PRN HYPERTENSION Insulin Aspart 1 vial 10/25/17 07:00 10/26/17 11:43 Novolog Vial Sliding Scale - SQ 2 units ACHS GILES Administration Protocol Metoprolol Tartrate 25 mg 10/25/17 19:00 10/26/17 06:26 Lopressor - PO 25 mg Q12H [facility] Administration Mometasone Furoate 1 puff 10/25/17 22:00 10/25/17 21:39 Asmanex 220mcg - IH 1 puff HS [facility] Administration Quetiapine Fumarate 12.5 mg 10/25/17 16:04 Seroquel - PO Q12H PRN AGITATION Ranolazine 500 mg 10/25/17 10:00 10/26/17 09:45 Ranexa - PO 500 mg BID [facility] Administration Rivastigmine 1 each 10/25/17 10:00 10/26/17 09:48 Exelon Patch 9.5 Mg/24 Hours - TD 1 each DAILY [facility] Administration Trazodone HCl 50 mg 10/25/17 19:00 10/25/17 20:23 Desyrel - PO Not Given 1900 [facility] Laboratory Results - last 24 hr 10/25/17 10/25/17 10/26/17 17:24 21:25 05:17 WBC RBC Hgb Hct MCV MCH MCHC RDW Plt Count MPV Neutrophils % Lymphocytes % Monocytes % Eosinophils % Basophils % Sodium Potassium Chloride Carbon Dioxide Anion Gap BUN Creatinine Creat Clearance w eGFR POC Glucometer 194 212 175 Random Glucose Hemoglobin A1c % Calcium Phosphorus Magnesium Total Bilirubin AST ALT Alkaline Phosphatase Total Protein Albumin 10/26/17 10/26/17 10/26/17 06:35 06:35 06:35 WBC 8.7 RBC 4.38 Hgb 12.4 Hct 36.2 MCV 82.7 MCH 28.3 MCHC 34.2 RDW 15.8 Plt Count 119 L MPV 9.7 Neutrophils % 68.2 Lymphocytes % 20.9 D Monocytes % 9.0 Eosinophils % 1.7 D Basophils % 0.2 Sodium 138 Potassium 5.6 H Chloride 102 Carbon Dioxide 27 Anion Gap 9 BUN 41 H D Creatinine 2.4 H D Creat Clearance w eGFR 26.52 POC Glucometer Random Glucose 163 H D Hemoglobin A1c % 7.1 H D Calcium 8.7 Phosphorus 3.6 Magnesium 2.0 Total Bilirubin 0.6 D AST 25 D ALT 17 Alkaline Phosphatase 56 Total Protein 7.5 Albumin 3.6 10/26/17 11:37 WBC RBC Hgb Hct MCV MCH MCHC RDW Plt Count MPV Neutrophils % Lymphocytes % Monocytes % Eosinophils % Basophils % Sodium Potassium Chloride Carbon Dioxide Anion Gap BUN Creatinine Creat Clearance w eGFR POC Glucometer 158 Random Glucose Hemoglobin A1c % Calcium Phosphorus Magnesium Total Bilirubin AST ALT Alkaline Phosphatase Total Protein Albumin Microbiology 10/24/17 22:52 Urine - Urine Clean Catch Urine Culture - Final NO GROWTH OBTAINED EKG - NSR, no peaked T waves, minimal non specific ST depressions in anterolateral leads ASSESSMENT AND PLAN: 77 yom with Dementia, NIDDM, HTN, 'cardiac arrhythmia', Admitted with unwitnessed fall, Hypertensive urgency, SALLY vs CKD stage III. -Unwitnessed fall, less likely syncope -Left posterior parietal scalp hematoma -AMS, suspect toxic/metabolic encephalopathy, from fall/head trauma/dehydration/ delirium over underlying dementia now with hyperkalemia/SALLY -SALLY ? baseline -Hyperkalemia -HTN -"cardiac arrhythmia" -CAD s/p CABG -NIDDM -Dementia Plan: Repeat CT brain on 10/25 neg for acute process. Continues to be confused, restless. 1:1. Haldol low dose prn. Similar prior episodes of confusion/hallucinatin a year ago , that were attributed to his progressive dementia, resulting in NH placement. Neuropsychiatry consult with Dr. Doty, Neuro checks. Telemetry uneventful. Follow up 2D echo, carotid dopplers. . Creatinine worse, Treat hyperkalemia with kayexalate, IVF. No EKG changes. Renal consult. FOllow up renal ultrasound. S/p mendoza placement in ED with >500 ml urine, but pulled out. Will place on straight cath prn and avoid mendoza given delirium and high risk for pulling and resultant trauma. Continue IVF, increase to 75 ml/hr Change atenolol to metoprolol given renal insufficiency. Continue home psych meds. DVTPPX with SCDs when in bed. PT eval. dispo planning improvement in mental status, renal function.
[2017-10-26] MEDS ORDERED: SODIUM CHLORIDE 1,000 ML IV SCH (13:00)
--- NOTE | 2017-10-26 15:58 | PN ---
Physical Exam: SUBJECTIVE: Patient seen and examined at bedside. Restless in bed. Confused and disoriented. No overnight events. No new complaints. Denies CP,ROMERO, SOB, abdominal pain, N/V. OBJECTIVE: Vital Signs Period Temp Pulse Resp BP Sys/Reynoso Pulse Ox Last 24 Hr 98.1 F-99.3 F 77-89 18-18 133-157/70-87 98-98 GENERAL:Awake and alert, restless in jose restraint. ENT:dry mucous membranes. NECK: supple, no jvd LUNGS: CTAB, no wheezing or rales. HEART:RRR, NL S1S2 ABDOMEN: Soft, NT/ND, NL BS. EXTREMITIES: no edema. NEUROLOGICAL: restless and confused. oriented x1 only person. no focal deficits. Laboratory Results - last 24 hr 10/25/17 10/25/17 10/26/17 17:24 21:25 05:17 WBC RBC Hgb Hct MCV MCH MCHC RDW Plt Count MPV Neutrophils % Lymphocytes % Monocytes % Eosinophils % Basophils % Sodium Potassium Chloride Carbon Dioxide Anion Gap BUN Creatinine Creat Clearance w eGFR POC Glucometer 194 212 175 Random Glucose Hemoglobin A1c % Calcium Phosphorus Magnesium Total Bilirubin AST ALT Alkaline Phosphatase Total Protein Albumin 10/26/17 10/26/17 10/26/17 06:35 06:35 06:35 WBC 8.7 RBC 4.38 Hgb 12.4 Hct 36.2 MCV 82.7 MCH 28.3 MCHC 34.2 RDW 15.8 Plt Count 119 L MPV 9.7 Neutrophils % 68.2 Lymphocytes % 20.9 D Monocytes % 9.0 Eosinophils % 1.7 D Basophils % 0.2 Sodium 138 Potassium 5.6 H Chloride 102 Carbon Dioxide 27 Anion Gap 9 BUN 41 H D Creatinine 2.4 H D Creat Clearance w eGFR 26.52 POC Glucometer Random Glucose 163 H D Hemoglobin A1c % 7.1 H D Calcium 8.7 Phosphorus 3.6 Magnesium 2.0 Total Bilirubin 0.6 D AST 25 D ALT 17 Alkaline Phosphatase 56 Total Protein 7.5 Albumin 3.6 10/26/17 11:37 WBC RBC Hgb Hct MCV MCH MCHC RDW Plt Count MPV Neutrophils % Lymphocytes % Monocytes % Eosinophils % Basophils % Sodium Potassium Chloride Carbon Dioxide Anion Gap BUN Creatinine Creat Clearance w eGFR POC Glucometer 158 Random Glucose Hemoglobin A1c % Calcium Phosphorus Magnesium Total Bilirubin AST ALT Alkaline Phosphatase Total Protein Albumin Active Medications Generic Name Dose Route Start Last Admin Trade Name Freq PRN Reason Stop Dose Admin Acetaminophen 650 mg 10/25/17 01:08 10/25/17 15:00 Tylenol - PO 650 mg Q4H PRN Administration PAIN Amlodipine Besylate 5 mg 10/25/17 10:00 10/26/17 09:44 Norvasc - PO 5 mg DAILY [facility] Administration Atorvastatin Calcium 20 mg 10/25/17 22:00 10/25/17 21:42 Lipitor - PO 20 mg HS [facility] Administration Ergocalciferol 50,000 unit 10/29/17 10:00 Drisdol - PO Th@1000 [facility] Escitalopram Oxalate 10 mg 10/25/17 10:00 10/26/17 09:44 Lexapro - PO 10 mg DAILY [facility] Administration Hydralazine HCl 10 mg 10/25/17 09:22 Apresoline Injection - IVPUSH Q6H PRN HYPERTENSION Sodium Chloride 1,000 mls @ 75 mls/hr 10/26/17 13:00 Normal Saline - IV ASDIR [facility] Insulin Aspart 1 vial 10/25/17 07:00 10/26/17 11:43 Novolog Vial Sliding Scale - SQ 2 units ACHS [facility] Administration Protocol Metoprolol Tartrate 25 mg 10/25/17 19:00 10/26/17 06:26 Lopressor - PO 25 mg Q12H [facility] Administration Mometasone Furoate 1 puff 10/25/17 22:00 10/25/17 21:39 Asmanex 220mcg - IH 1 puff HS [facility] Administration Ranolazine 500 mg 10/25/17 10:00 10/26/17 09:45 Ranexa - PO 500 mg BID [facility] Administration Rivastigmine 1 each 10/25/17 10:00 10/26/17 09:48 Exelon Patch 9.5 Mg/24 Hours - TD 1 each DAILY [facility] Administration Trazodone HCl 50 mg 10/25/17 19:00 10/25/17 20:23 Desyrel - PO Not Given 1900 [facility] ASSESSMENT/PLAN: 77 yom with Dementia, NIDDM, HTN, admitted for s/p fall, HTN urgency, SALLY vs CKD stage III. Problem List - Problems (1) Unwitnessed fall Assessment/Plan: most likely syncopal episode as patient has history of unknown arrhythmia. * Echo and carotid dopplers pending. * Orthostatic BP's * CT has been repeated and continues to be negative for acute pathology. * fall precautions. * Neuro consulted. Code(s): R29.6 - REPEATED FALLS (2) DM type 2 (diabetes mellitus, type 2) Assessment/Plan: * ADA diet. * BGM ACHS * ISS ACHS (3) SALLY (acute kidney injury) Assessment/Plan: most likely secondary to retention. * IVF with NS @75ml/hr * straight cath TID * repeat CMP in AM (4) Hyperkalemia Assessment/Plan: Mild hyperkalemia with no ekg changes. * GIven Kayexelate * repeat CMP in evening. (5) Hypertensive urgency Assessment/Plan: * Amlodipine Besylate (Norvasc -) 5 mg PO DAILY * Hydralazine HCl (Apresoline Injection -) 10 mg IVPUSH Q6H * Metoprolol Tartrate (Lopressor -) 25 mg PO Q12H (6) Hypomagnesemia (7) Dementia Assessment/Plan: Neurology consulted. * Escitalopram Oxalate (Lexapro -) 10 mg PO DAILY * Rivastigmine (Exelon Patch 9.5 Mg/24 Hours -) 1 each TD DAILY * Trazodone HCl (Desyrel -) 50 mg PO 1900 [facility] * Haloperidol PRN agitation. * 1:1 ordered. Visit type - Emergency Visit Emergency Visit: Yes ED Registration Date: 10/25/17 Care time: The patient presented to the Emergency Department on the above date and was hospitalized for further evaluation of their emergent condition. - New Patient This patient is new to me today: Yes Date on this admission: 10/26/17 - Critical Care Critical Care patient: No - Discharge Referral Referred to [facility] Med P.C.: No
[2017-10-26] MEDS: traZODone HCL 50 MG TABLET (FP) PO SCH (18:14)
--- NOTE | 2017-10-26 18:44 | CONSULT ---
Consult Consult Specialty:: Nephrology Reason for Consultation:: hyperkalemia and CKD - History of Present Illness Chief Complaint: s/p fall History of Present Illness: Pt is a 77 year old male with pmhx of AD, HLD, depression, cardiac arrhythmias and DM who presents to the ER after fall. He was found to have elevated creatinine that has been worsening and I was called to evaluate him. He is a poor historian but can give some history. His son is at bedside and assisted with history. Pt previously had normal mental status. He denies shortness of breath. He denies dysuria or hematuria. He denies nsaids use. He is unsure if he has history of kidney disease. - History Source History Provided By: Patient, Medical Record - Past Medical History Cardio/Vascular: Yes: HTN, Hyperlipdemia Psych: Yes: Depression Endocrine: Yes: Diabetes Mellitus - Alcohol/Substance Use Hx Alcohol Use: No - Smoking History Smoking history: Unknown if ever smoked Have you smoked in the past 12 months: No Home Medications - Allergies Allergies/Adverse Reactions: Allergies Allergy/AdvReac Type Severity Reaction Status Date / Time No Known Allergies Allergy Verified 10/24/17 22:30 - Home Medications Home Medications: Ambulatory Orders Aspirin [ASA -] 81 mg PO DAILY 10/25/17 Atenolol [Tenormin -] 50 mg PO DAILY 10/25/17 Ergocalciferol [Vitamin D2] 50,000 unit PO Q7D@1000 10/25/17 Escitalopram Oxalate [Lexapro -] 10 mg PO DAILY 10/25/17 Fluticasone Propionate [Flovent Diskus] 50 mcg IH DAILY 10/25/17 Glipizide 10 mg PO DAILY 10/25/17 Linagliptin [Tradjenta] 5 mg PO DAILY 10/25/17 Loperamide HCl [Imodium A-D] 2 mg PO DAILY 10/25/17 Losartan Potassium [Cozaar] 100 mg PO DAILY 10/25/17 [place]-3 Fatty Acids [[place]-3] 2,000 mg PO BID 10/25/17 Polyvinyl Alcohol [Artificial Tears] 1 drop OP DAILY 10/25/17 Pravastatin Sodium [Pravachol (Nf)] 80 mg PO HS 10/25/17 Ranolazine [Ranexa] 500 mg PO BID 10/25/17 Rivastigmine [Exelon Patch 9.5 mg/24 Hours] 1 each TD DAILY 10/25/17 Trazodone HCl 50 mg PO HS 10/25/17 Family Disease History - Family Disease History Family History: Denies Review of Systems - Review of Systems Constitutional: reports: Malaise Eyes: reports: No Symptoms HENT: reports: No Symptoms Neck: reports: No Symptoms Cardiovascular: reports: No Symptoms Respiratory: reports: No Symptoms Gastrointestinal: reports: No Symptoms Genitourinary: reports: No Symptoms Musculoskeletal: reports: Joint Pain Integumentary: reports: No Symptoms Neurological: reports: Change in LOC Endocrine: reports: No Symptoms Hematology/Lymphatic: reports: No Symptoms Physical Exam Vital Signs: Vital Signs Temperature 99.1 F 10/26/17 17:00 Pulse Rate 82 10/26/17 17:00 Respiratory Rate 18 10/26/17 17:00 Blood Pressure 142/80 10/26/17 17:00 O2 Sat by Pulse Oximetry (%) 98 10/26/17 07:28 Constitutional: Yes: Calm Eyes: Yes: Conjunctiva Clear HENT: Yes: Atraumatic Neck: Yes: Supple Cardiovascular: Yes: S1, S2 Respiratory: Yes: CTA Bilaterally Gastrointestinal: Yes: Normal Bowel Sounds, Soft Renal/: Yes: WNL Edema: No Neurological: Yes: Confusion Labs: CBC, BMP 10/26/17 06:35 10/26/17 06:35 Laboratory Tests 10/24/17 10/25/17 10/25/17 20:26 07:45 07:45 WBC Hgb 11.8 D Sodium Potassium 5.2 H 5.1 Chloride Carbon Dioxide BUN Creatinine 1.9 H 1.9 H Random Glucose 10/26/17 10/26/17 06:35 06:35 WBC 8.7 Hgb 12.4 Sodium 138 Potassium 5.6 H Chloride 102 Carbon Dioxide 27 BUN 41 H D Creatinine 2.4 H D Random Glucose 163 H D Imaging - Results Chest X-ray: Report Reviewed Problem List - Problems (1) SALLY (acute kidney injury) Code(s): N17.9 - ACUTE KIDNEY FAILURE, UNSPECIFIED (2) Altered mental state Code(s): R41.82 - ALTERED MENTAL STATUS, UNSPECIFIED (3) DM type 2 (diabetes mellitus, type 2) Code(s): E11.9 - TYPE 2 DIABETES MELLITUS WITHOUT COMPLICATIONS Qualifiers: Diabetes mellitus complication status: with kidney complications Diabetes mellitus complication detail: with chronic kidney disease Diabetes mellitus termite control servicer insulin use: without termite control servicer use Chronic kidney disease stage: stage 3 (moderate) Qualified Code(s): E11.22 - Type 2 diabetes mellitus with diabetic chronic kidney disease; N18.3 - Chronic kidney disease, stage 3 ( moderate); N18.3 - Chronic kidney disease, stage 3 (moderate) (4) Fall Code(s): W19.XXXA - UNSPECIFIED FALL, INITIAL ENCOUNTER (5) Hyperkalemia Code(s): E87.5 - HYPERKALEMIA Assessment/Plan Current Medications Generic Name Dose Route Start Last Admin Trade Name Freq PRN Reason Stop Dose Admin Acetaminophen 650 mg 10/25/17 01:08 10/25/17 15:00 Tylenol - PO 650 mg Q4H PRN Administration PAIN Amlodipine Besylate 5 mg 10/25/17 10:00 10/26/17 09:44 Norvasc - PO 5 mg DAILY GILES Administration Atorvastatin Calcium 20 mg 10/25/17 22:00 10/25/17 21:42 Lipitor - PO 20 mg HS GILES Administration Ergocalciferol 50,000 unit 10/29/17 10:00 Drisdol - PO Th@1000 GILES Escitalopram Oxalate 10 mg 10/25/17 10:00 10/26/17 09:44 Lexapro - PO 10 mg DAILY GILES Administration Hydralazine HCl 10 mg 10/25/17 09:22 Apresoline Injection - IVPUSH Q6H PRN HYPERTENSION Sodium Chloride 1,000 mls @ 75 mls/hr 10/26/17 13:00 10/26/17 13:20 Normal Saline - IV 75 mls/hr ASDIR GILES Administration Insulin Aspart 1 vial 10/25/17 07:00 10/26/17 17:19 Novolog Vial Sliding Scale - SQ 2 units ACHS GILES Administration Protocol Metoprolol Tartrate 25 mg 10/25/17 19:00 10/26/17 18:14 Lopressor - PO 25 mg Q12H GILES Administration Mometasone Furoate 1 puff 10/25/17 22:00 10/25/17 21:39 Asmanex 220mcg - IH 1 puff HS GILES Administration Ranolazine 500 mg 10/25/17 10:00 10/26/17 09:45 Ranexa - PO 500 mg BID GILES Administration Rivastigmine 1 each 10/25/17 10:00 10/26/17 09:48 Exelon Patch 9.5 Mg/24 Hours - TD 1 each DAILY GILES Administration Trazodone HCl 50 mg 10/25/17 19:00 10/26/17 18:14 Desyrel - PO 50 mg 1900 GILES Administration Impression 1. SALLY 2. hyperkalemia 3. s/p fall 4. depression 5. DM 6. HTN 7. change in mental status Plan - change fluids to 1/2ns - arb on hold - repeat labs in am - check renal ultrasound to r/o obstructive disease - check urine lytes and card dealer to calc fena (fena was 9 yesterday however urine sodium was very high) - will need to get last outpt labs to evaluate baseline creatinine - low potassium diet - as per son pt has not been eating and drinking much in the NH before admission - if bp is higher can increase norvasc to 10 mg - will comment more on etiology of kidney disease after reviewing the tests ordered Dr Golden
[2017-10-26] MEDS ORDERED: SODIUM CHLORIDE 0.45% 1,000 ML IV SCH (19:00)
[2017-10-26 21:05] LABS: ALBUMIN 3.1 g/dl (3.4-5.0); ANION GAP 7 (8-16); BLOOD UREA NITROGEN 38 mg/dL (7-18); CALCIUM 7.6 mg/dL (8.5-10.1); CHLORIDE 102 mmol/L (98-107); CO2 28 mmol/L (21-32); CREATININE 1.8 mg/dL (0.7-1.3); GLUCOSE,RANDOM 148 mg/dL (74-106); POTASSIUM 3.9 mmol/L (3.5-5.1); SGOT/AST 21 U/L (15-37); SGPT/ALT 15 U/L (12-78); SODIUM 137 mmol/L (136-145)
[2017-10-26 21:08] LABS: ALK PHOS 49 U/L (45-117); BILIRUBIN,TOTAL 0.6 mg/dL (0.2-1.0); TOT PROT 6.2 g/dl (6.4-8.2)
[2017-10-26] MEDS: ATORVASTATIN CA 20 MG TABLET (FP) PO SCH (21:44)
[2017-10-26] MEDS: MOMETASONE FUROATE 220 MCG/IH INHALER IH SCH (21:45)
--- NOTE | 2017-10-26 23:14 | EKG ---
Test Reason : Blood Pressure : / mmHG Vent. Rate : 094 BPM Atrial Rate : 094 BPM P-R Int : 242 ms QRS Dur : 092 ms QT Int : 374 ms P-R-T Axes : 084 002 076 degrees QTc Int : 467 ms SINUS RHYTHM WITH 1ST DEGREE A-V BLOCK INFERIOR INFARCT (CITED ON OR BEFORE 24-OCT-2017) ABNORMAL ECG WHEN COMPARED WITH ECG OF 24-OCT-2017 22:25, ST NOW DEPRESSED IN ANTERIOR LEADS Confirmed by RIGO COELLO MD ([id number]) on 10/26/2017 11:14:06 PM Referred By: Shannon RUIZ Confirmed By:RIGO COELLO MD
[2017-10-27 06:23] LABS: BASO % 0.5 % (0-2.0); EOS % 2.6 % (0-4.5); HEMATOCRIT 34.2 % (35.4-49); HEMOGLOBIN 11.7 GM/dL (11.7-16.9); LYMPH % 22.3 % (8-40); MCHC 34.3 g/dl (32.0-35.9); MEAN CELL VOLUME 81.5 fl (80-96); MEAN PLT VOLUME 9.4 fl (7.5-11.1); NEUT % 64.6 % (42.8-82.8); PLATELET COUNT 103 K/MM3 (134-434); RBC 4.19 M/mm3 (4.00-5.60); RDW 15.6 % (11.9-15.9); WHITE BLOOD COUNT 6.8 K/mm3 (4.0-10.0)
[2017-10-27] MEDS: METOPROLOL TARTRATE 25 MG TABLET (FP) PO SCH ×2 (06:38→20:09)
[2017-10-27] MEDS: INSULIN SLIDING SCALE (NOVOLOG) 1 VIAL SQ SCH ×4 (06:39→22:23)
[2017-10-27 06:56] LABS: CHLORIDE 103 mmol/L (98-107); POTASSIUM 3.9 mmol/L (3.5-5.1); SODIUM 138 mmol/L (136-145)
[2017-10-27 07:00] LABS: ALBUMIN 3.2 g/dl (3.4-5.0); ALK PHOS 54 U/L (45-117); ANION GAP 8 (8-16); BILIRUBIN,TOTAL 0.6 mg/dL (0.2-1.0); BLOOD UREA NITROGEN 36 mg/dL (7-18); CALCIUM 7.9 mg/dL (8.5-10.1); CO2 27 mmol/L (21-32); CREATININE 1.6 mg/dL (0.7-1.3); GLUCOSE,RANDOM 131 mg/dL (74-106); MAGNESIUM 2.1 mg/dL (1.8-2.4); PHOSPHOROUS 3.6 mg/dL (2.5-4.9); SGOT/AST 21 U/L (15-37); SGPT/ALT 16 U/L (12-78); TOT PROT 6.5 g/dl (6.4-8.2)
[2017-10-27] MEDS ORDERED: PT OWN MED DRAWER 7, Y5N ONE (07:13)
[2017-10-27] MEDS: ACETAMINOPHEN 325 MG TABLET (FP) PO PRN (07:15)
[2017-10-27 07:42] LABS: URINE APPEARANCE CLEAR; URINE BILIRUBIN NEGATIVE (NEGATIVE); URINE BLOOD 2+ (NEGATIVE); URINE COLOR LTYELLOW; URINE GLUCOSE (UA) NEGATIVE (NEGATIVE); URINE KETONE NEGATIVE (NEGATIVE); URINE NITRITE NEGATIVE (NEGATIVE); URINE UROBILINOGEN NEGATIVE mg/dL (0.2-1.0)
--- NOTE | 2017-10-27 08:26 | MSN ---
Progress Note (SOAP) - Subjective Chief Complaint: Unwitnessed fall History of Present Illness: 77 y/o M with past medical history of Alzheimer's, depression, CAD, DM and cardiac arrhythmias being treated for unwitnessed fall at longterm and hypertensive urgency. Overnight eents include BP spiking to 194/87 which was treated by overnight team with 25mg Lopressor. Pt has no current complaints but is confused and oriented only to self. Pt denies any chest pain, shortness of breath, headache, nausea, vomiting, fever, chills, dysuria or hematuria. - Current Medications Current Medications: Active Medications Acetaminophen (Tylenol -) 650 mg PO Q4H PRN PRN Reason: PAIN Last Admin: 10/27/17 07:15 Dose: 650 mg Amlodipine Besylate (Norvasc -) 5 mg PO DAILY [facility] Last Admin: 10/26/17 09:44 Dose: 5 mg Atorvastatin Calcium (Lipitor -) 20 mg PO HS [facility] Last Admin: 10/26/17 21:44 Dose: 20 mg Ergocalciferol (Drisdol -) 50,000 unit PO Th@1000 [facility] Escitalopram Oxalate (Lexapro -) 10 mg PO DAILY [facility] Last Admin: 10/26/17 09:44 Dose: 10 mg Hydralazine HCl (Apresoline Injection -) 10 mg IVPUSH Q6H PRN PRN Reason: HYPERTENSION Sodium Chloride (1/2 Normal Saline) 1,000 mls @ 75 mls/hr IV ASDIR [facility] Last Admin: 10/26/17 20:53 Dose: 75 mls/hr Insulin Aspart (Novolog Vial Sliding Scale -) 1 vial SQ ACHS [facility] PRN Reason: Protocol Last Admin: 10/27/17 06:39 Dose: Not Given Metoprolol Tartrate (Lopressor -) 25 mg PO Q12H [facility] Last Admin: 10/27/17 06:38 Dose: 25 mg Mometasone Furoate (Asmanex 220mcg -) 1 puff IH HS [facility] Last Admin: 10/26/17 21:45 Dose: 1 puff Ranolazine (Ranexa -) 500 mg PO BID [facility] Last Admin: 10/26/17 21:44 Dose: 500 mg Rivastigmine (Exelon Patch 9.5 Mg/24 Hours -) 1 each TD DAILY [facility] Last Admin: 10/26/17 09:48 Dose: 1 each Trazodone HCl (Desyrel -) 50 mg PO 1900 [facility] Last Admin: 10/26/17 18:14 Dose: 50 mg - Objective Vital Signs: Vital Signs Temperature 98 F 10/27/17 07:47 Pulse Rate 75 10/27/17 07:47 Respiratory Rate 18 10/27/17 07:52 Blood Pressure 165/77 10/27/17 07:47 O2 Sat by Pulse Oximetry (%) 97 10/27/17 07:52 Constitutional: Yes: Well Nourished Eyes: Yes: EOM Intact HENT: Yes: Atraumatic, Normocephalic Neck: Yes: Supple Cardiovascular: Yes: Regular Rate and Rhythm Respiratory: Yes: Regular, CTA Bilaterally Gastrointestinal: Yes: Normal Bowel Sounds, Soft Extremities: Yes: WNL Peripheral Pulses WNL: Yes Edema: No Neurological: Yes: Other (Oriented only to self, could not participate in full neuro exam) Labs Lab Results: CBC, BMP 10/27/17 06:05 10/27/17 06:05 Problem List - Problems (1) Unwitnessed fall Assessment/Plan: -echo and carotid dopplers pending -CT repeated on on 10/26 and showed no acute pathology again -Neurology was ocnsulted Code(s): R29.6 - REPEATED FALLS (2) SALLY (acute kidney injury) Assessment/Plan: -due to retention -straight cath TID -Dr. Golden recommends change to 1/2 NS -increase norvasc to 10mg if BP still elevated -Will give further evaluation after renal ultrasound Code(s): N17.9 - ACUTE KIDNEY FAILURE, UNSPECIFIED (3) Hypertensive urgency Assessment/Plan: -latest BP 165/70 -hydralazine 10 mg Q6H -lopressor 25mg IVPUSH Q12 Code(s): I16.0 - HYPERTENSIVE URGENCY (4) DM type 2 (diabetes mellitus, type 2) Assessment/Plan: -Sliding scale novolog -BGM HS Code(s): E11.9 - TYPE 2 DIABETES MELLITUS WITHOUT COMPLICATIONS Qualifiers: Diabetes mellitus complication status: with kidney complications Diabetes mellitus complication detail: with chronic kidney disease Diabetes mellitus shared services and outsourcing manager insulin use: without shared services and outsourcing manager use Chronic kidney disease stage: stage 3 (moderate) Qualified Code(s): E11.22 - Type 2 diabetes mellitus with diabetic chronic kidney disease; N18.3 - Chronic kidney disease, stage 3 ( moderate); N18.3 - Chronic kidney disease, stage 3 (moderate) (5) Dementia Assessment/Plan: -Neurology consulted -Escitalopram 10mg PO daily -Rivastigmine 1 each TD daily -Trazodone 50mg PO 1900 GILES -Haloperidol PRN agitation Code(s): F03.90 - UNSPECIFIED DEMENTIA WITHOUT BEHAVIORAL DISTURBANCE Qualifiers: Dementia type: Alzheimer's disease Alzheimer's disease onset: unspecified onset Dementia behavioral disturbance: with behavioral disturbance Qualified Code(s): G30.9 - Alzheimer's disease, unspecified; F02.81 - Dementia in other diseases classified elsewhere with behavioral disturbance; F02.81 - Dementia in other diseases classified elsewhere with behavioral disturbance; F02.81 - Dementia in other diseases classified elsewhere with behavioral disturbance
[2017-10-27 08:27] LABS: URINE LEUK ESTERASE 1+ (NEGATIVE); URINE PROTEIN 1+ (NEGATIVE)
[2017-10-27 08:52] LABS: URINE BACTERIA RARE /hpf (NONE SEEN); YEAST MODERATE
[2017-10-27] MEDS: RANOLAZINE E.R. 500 MG TABLET (FP) PO SCH ×2 (09:43→21:47)
[2017-10-27] MEDS: ESCITALOPRAM OXALATE 10 MG TABLET (FP) PO SCH (09:43)
[2017-10-27] MEDS: RIVASTIGMINE 9.5 MG/24 HOURS TRANSDERMAL PATCH TD SCH (09:44)
[2017-10-27] MEDS: amLODIPine BESYLATE 5 MG TABLET (FP) PO SCH (09:44)
--- NOTE | 2017-10-27 11:29 | CON.NEURO ---
Consult Consult Specialty:: Neurology Referred by:: Dr Golden Reason for Consultation:: Altered Mental Status/Fall - History of Present Illness Chief Complaint: Alterned Mental Status/Fall History of Present Illness: Patient admitted after he fell and hit his head. No clear LOC, but has been intermittently agitated. Now not so. He is pleasant and cooperative but unable to tell me how he fell. He is demented at baseline. He does say that he got lightheaded. 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: Alzheimer's Cardio/Vascular: Yes: HTN, Hyperlipdemia Psych: Yes: Depression Endocrine: Yes: Diabetes Mellitus - Alcohol/Substance Use Hx Alcohol Use: No - Smoking History Smoking history: Unknown if ever smoked Have you smoked in the past 12 months: No Home Medications - Allergies Allergies/Adverse Reactions: Allergies Allergy/AdvReac Type Severity Reaction Status Date / Time No Known Allergies Allergy Verified 10/24/17 22:30 - Home Medications Home Medications: Ambulatory Orders Aspirin [ASA -] 81 mg PO DAILY 10/25/17 Atenolol [Tenormin -] 50 mg PO DAILY 10/25/17 Ergocalciferol [Vitamin D2] 50,000 unit PO Q7D@1000 10/25/17 Escitalopram Oxalate [Lexapro -] 10 mg PO DAILY 10/25/17 Fluticasone Propionate [Flovent Diskus] 50 mcg IH DAILY 10/25/17 Glipizide 10 mg PO DAILY 10/25/17 Linagliptin [Tradjenta] 5 mg PO DAILY 10/25/17 Loperamide HCl [Imodium A-D] 2 mg PO DAILY 10/25/17 Losartan Potassium [Cozaar] 100 mg PO DAILY 10/25/17 [place]-3 Fatty Acids [[place]-3] 2,000 mg PO BID 10/25/17 Polyvinyl Alcohol [Artificial Tears] 1 drop OP DAILY 10/25/17 Pravastatin Sodium [Pravachol (Nf)] 80 mg PO HS 10/25/17 Ranolazine [Ranexa] 500 mg PO BID 10/25/17 Rivastigmine [Exelon Patch 9.5 mg/24 Hours] 1 each TD DAILY 10/25/17 Trazodone HCl 50 mg PO HS 10/25/17 Physical Exam-Neuro Vital Signs: Vital Signs Temperature 98 F 10/27/17 07:47 Pulse Rate 67 10/27/17 08:59 Respiratory Rate 18 10/27/17 07:52 Blood Pressure 169/77 10/27/17 08:59 O2 Sat by Pulse Oximetry (%) 97 10/27/17 07:52 Labs: CBC, BMP 10/27/17 06:05 10/27/17 06:05 INR, PTT INR 0.98 (0.82-1.09) 10/24/17 20:26 - Neuro Exam Level Of Consciousness: Yes: Alert, Oriented to Person, Oriented to Place ( knows president JENNA. Thinks 1974. Month February) Eyes: Yes: MATTHEW Speech: WNL Cranial Nerves II-XII Intact: Yes DTR's: 0 Left Achilles, 0 Right Achilles, 2+ Left Bicep, 2+ Right Bicep, 2+ Left Tricep, 2+ Right Tricep, 2+ Left Brachioradialis, 2+ Right Brachioradialis Babinski: Absent Response to light touch: Normal Motor Strength: 5/5: Left Arm, Right Arm, Left Leg, Right Leg Imaging - Results Cat Scan: Report Reviewed, Image Reviewed (atrophy, no acute pathology) Problem List - Problems (1) SALLY (acute kidney injury) Code(s): N17.9 - ACUTE KIDNEY FAILURE, UNSPECIFIED (2) Altered mental state Code(s): R41.82 - ALTERED MENTAL STATUS, UNSPECIFIED (3) DM type 2 (diabetes mellitus, type 2) Code(s): E11.9 - TYPE 2 DIABETES MELLITUS WITHOUT COMPLICATIONS Qualifiers: Diabetes mellitus complication status: with kidney complications Diabetes mellitus complication detail: with chronic kidney disease Diabetes mellitus exterminator helper insulin use: without fpc use Chronic kidney disease stage: stage 3 (moderate) Qualified Code(s): E11.22 - Type 2 diabetes mellitus with diabetic chronic kidney disease; N18.3 - Chronic kidney disease, stage 3 ( moderate); N18.3 - Chronic kidney disease, stage 3 (moderate) (4) Hyperkalemia Code(s): E87.5 - HYPERKALEMIA (5) Hypomagnesemia Code(s): E83.42 - HYPOMAGNESEMIA Assessment/Plan Patient with baseline dementia and multiple medical comorbidities, had fall of unclear etiology and has had some waxing and waning. I don't see any indication of acute neurologic illness and wouldn't pursue additional neurologic workup. Continue current management and consider adding a cholinesterase inhibitor and or memantine as an outpatient, but I wouldn't do that now. Thanks. Please call if there are additional questions or issues that you would like addressed.
--- NOTE | 2017-10-27 13:08 | PN ---
Teaching Attending Note Name of Resident: Jabari Painting ATTENDING PHYSICIAN STATEMENT I saw and evaluated the patient. I reviewed the resident's note and discussed the case with the resident. I agree with the resident's findings and plan as documented. SUBJECTIVE:asymptomatic. states he remembers his legs giving out and falling. does not remember if he had symptoms prior to or after his fall. denies Cp, SOB , roosevelt, chills, N/V/C/D OBJECTIVE: Last Vital Signs Temp Pulse Resp BP Pulse Ox 98 F 67 18 169/77 97 10/27/17 07:47 10/27/17 08:59 10/27/17 07:52 10/27/17 08:59 10/27/17 07:52 General NAD A&O x3 HEENT +L parietal scalp hematoma, no nystagmus CV S1 S2 RRR Lungs CTA B/L anteriorly Abdomen soft NT/ND Neuro CN grossly intact, negative pronator drift, sensation/strength grossly intact in all extremtiies. negative dysmetria/dysdakinesia, heel to glynn. able to follo 2 step commands. gait testing deferred ASSESSMENT AND PLAN: 77 yo M with Dementia, NIDDM, HTN, 'cardiac arrhythmia', Admitted with unwitnessed fall, Hypertensive urgency, SALLY vs CKD stage III. 1. Unwitnessed fall- can not r/o syncope. does not recall hitting his head but does have scalp hematoma. CT head neg x2. no events on cardiac monitoring. echo noted with no major valve abnormalities. carotid doppler pending. 2. Acute metabolic encephalopathy-possible dehydration vs due to HTN urgency. appears to be coherent able to follow commands however is forgetful. liekly dehydrated on arrival. repeat orthostatics this AM. if + would give more IVF. neuropsych consult pending. cont exelon patch. will take off restraints and monitor 3. SALLY-possible obstructive vs medication induced. unknown baseline. mendoza has been removed as he was agitated pulling at it. as per RN urinated freely this AM. will check post-void scan to further evaluate. on 1/2NS. renal on board. 4. HTN urgency- now improved. starte on norvasc. will titrate as needed to optimize control 5. Hyperkaelmia- resolved. s/p kayexylate 6. DM- controlled. cont iss. re-start home medications on discharge 7. DVT ppx- will start hep sq if no contraindication 8. PT assessment. will monitor overnight if continues to improve will d/c back to SNF in AM.
--- NOTE | 2017-10-27 13:50 | PN ---
Physical Exam: SUBJECTIVE: Patient seen and examined. Patients BP overnight 194/87. Was given Lopressor 25mg overnight. Patient Says he woke up with a sore throat, other than that he denies dizziness , nausea, vomiting, lightheadedness, chest pain, SOB. OBJECTIVE: Vital Signs Period Temp Pulse Resp BP Sys/Reynoso Pulse Ox Last 24 Hr 98 F-99.3 F 66-86 18-20 134-194/62-87 97-97 GENERAL: A/o x 3, forgetful EYES: PERRL, extraocular movements intact ENT: oropharynx clear without exudates, moist mucous membranes. NECK: supple. LUNGS: Breath sounds equal, clear to auscultation bilaterally, no wheezes, no crackles, no accessory muscle use. HEART: Regular rate and rhythm, S1, S2 without murmur, rub or gallop. ABDOMEN: Soft, nontender, nondistended, normoactive bowel sounds, no guarding, no rebound, no hepatosplenomegaly, no masses. EXTREMITIES: 2+ pulses, warm, well-perfused, no edema. NEUROLOGICAL: no facial droop, symmetric face, Cranial nerves II through XII grossly intact, normal finger to nose, heel to glynn. SKIN: Warm, dry, normal turgor, no rashes or lesions noted Laboratory Results - last 24 hr 10/26/17 10/26/17 10/26/17 05:30 17:13 20:00 WBC RBC Hgb Hct MCV MCH MCHC RDW Plt Count MPV Neutrophils % Lymphocytes % Monocytes % Eosinophils % Basophils % Sodium 137 Potassium 3.9 D Chloride 102 Carbon Dioxide 28 Anion Gap 7 L BUN 38 H Creatinine 1.8 H D Creat Clearance w eGFR 36.97 POC Glucometer 193 Random Glucose 148 H Calcium 7.6 L Phosphorus Magnesium Total Bilirubin 0.6 AST 21 ALT 15 Alkaline Phosphatase 49 Total Protein 6.2 L Albumin 3.1 L Urine Color Ltyellow Urine Appearance Clear Urine pH 5.0 D Ur Specific [place] 1.006 Urine Protein 1+ H Urine Glucose (UA) Negative Urine Ketones Negative Urine Blood 2+ H Urine Nitrite Negative Urine Bilirubin Negative Urine Urobilinogen Negative Ur Leukocyte Esterase 1+ H Urine WBC (Auto) 13 Urine RBC (Auto) 1 Urine Bacteria Rare Urine Yeast Moderate Ur Random Sodium Ur Random Potassium Ur Random Chloride Urine Creatinine 10/26/17 10/27/17 10/27/17 21:47 05:30 05:30 WBC RBC Hgb Hct MCV MCH MCHC RDW Plt Count MPV Neutrophils % Lymphocytes % Monocytes % Eosinophils % Basophils % Sodium Potassium Chloride Carbon Dioxide Anion Gap BUN Creatinine Creat Clearance w eGFR POC Glucometer 152 Random Glucose Calcium Phosphorus Magnesium Total Bilirubin AST ALT Alkaline Phosphatase Total Protein Albumin Urine Color Urine Appearance Urine pH Ur Specific [place] Urine Protein Urine Glucose (UA) Urine Ketones Urine Blood Urine Nitrite Urine Bilirubin Urine Urobilinogen Ur Leukocyte Esterase Urine WBC (Auto) Urine RBC (Auto) Urine Bacteria Urine Yeast Ur Random Sodium 31 Ur Random Potassium 7.8 Ur Random Chloride 15 Urine Creatinine 49.0 10/27/17 10/27/17 10/27/17 06:05 06:05 06:28 WBC 6.8 RBC 4.19 Hgb 11.7 Hct 34.2 L MCV 81.5 MCH 28.0 MCHC 34.3 RDW 15.6 Plt Count 103 L MPV 9.4 Neutrophils % 64.6 Lymphocytes % 22.3 Monocytes % 10.0 Eosinophils % 2.6 Basophils % 0.5 Sodium 138 Potassium 3.9 Chloride 103 Carbon Dioxide 27 Anion Gap 8 BUN 36 H Creatinine 1.6 H Creat Clearance w eGFR 42.35 POC Glucometer 157 Random Glucose 131 H Calcium 7.9 L Phosphorus 3.6 Magnesium 2.1 Total Bilirubin 0.6 AST 21 ALT 16 Alkaline Phosphatase 54 Total Protein 6.5 Albumin 3.2 L Urine Color Urine Appearance Urine pH Ur Specific [place] Urine Protein Urine Glucose (UA) Urine Ketones Urine Blood Urine Nitrite Urine Bilirubin Urine Urobilinogen Ur Leukocyte Esterase Urine WBC (Auto) Urine RBC (Auto) Urine Bacteria Urine Yeast Ur Random Sodium Ur Random Potassium Ur Random Chloride Urine Creatinine 10/27/17 12:20 WBC RBC Hgb Hct MCV MCH MCHC RDW Plt Count MPV Neutrophils % Lymphocytes % Monocytes % Eosinophils % Basophils % Sodium Potassium Chloride Carbon Dioxide Anion Gap BUN Creatinine Creat Clearance w eGFR POC Glucometer 179 Random Glucose Calcium Phosphorus Magnesium Total Bilirubin AST ALT Alkaline Phosphatase Total Protein Albumin Urine Color Urine Appearance Urine pH Ur Specific [place] Urine Protein Urine Glucose (UA) Urine Ketones Urine Blood Urine Nitrite Urine Bilirubin Urine Urobilinogen Ur Leukocyte Esterase Urine WBC (Auto) Urine RBC (Auto) Urine Bacteria Urine Yeast Ur Random Sodium Ur Random Potassium Ur Random Chloride Urine Creatinine Active Medications Generic Name Dose Route Start Last Admin Trade Name Freq PRN Reason Stop Dose Admin Acetaminophen 650 mg 10/25/17 01:08 10/27/17 07:15 Tylenol - PO 650 mg Q4H PRN Administration PAIN Amlodipine Besylate 5 mg 10/25/17 10:00 10/27/17 09:44 Norvasc - PO 5 mg DAILY [facility] Administration Atorvastatin Calcium 20 mg 10/25/17 22:00 10/26/17 21:44 Lipitor - PO 20 mg HS [facility] Administration Ergocalciferol 50,000 unit 10/29/17 10:00 Drisdol - PO Th@1000 [facility] Escitalopram Oxalate 10 mg 10/25/17 10:00 10/27/17 09:43 Lexapro - PO 10 mg DAILY [facility] Administration Heparin Sodium (Porcine) 5,000 unit 10/27/17 22:00 Heparin - SQ BID [facility] Hydralazine HCl 10 mg 10/25/17 09:22 Apresoline Injection - IVPUSH Q6H PRN HYPERTENSION Sodium Chloride 1,000 mls @ 75 mls/hr 10/26/17 19:00 10/26/17 20:53 1/2 Normal Saline IV 75 mls/hr ASDIR [facility] Administration Insulin Aspart 1 vial 10/25/17 07:00 10/27/17 12:26 Novolog Vial Sliding Scale - SQ Not Given ACHS [facility] Protocol Metoprolol Tartrate 25 mg 10/25/17 19:00 10/27/17 06:38 Lopressor - PO 25 mg Q12H [facility] Administration Mometasone Furoate 1 puff 10/25/17 22:00 10/26/17 21:45 Asmanex 220mcg - IH 1 puff HS [facility] Administration Ranolazine 500 mg 10/25/17 10:00 10/27/17 09:43 Ranexa - PO 500 mg BID [facility] Administration Rivastigmine 1 each 10/25/17 10:00 10/27/17 09:44 Exelon Patch 9.5 Mg/24 Hours - TD 1 each DAILY [facility] Administration Trazodone HCl 50 mg 10/25/17 19:00 10/26/17 18:14 Desyrel - PO 50 mg 1900 [facility] Administration ASSESSMENT/PLAN: 77 yo m with Dementia, NIDDM, HTN, admitted for an unwitnessed fall, HTN urgency , SALLY vs CKD stage III. #Unwitnessed Fall -Cannot r/o syncopal episode as patient has history of unknown arrhythmia. -Echo: EF 54%, Trace MR, TR -Carotid dopplers pending. -Orthostatic hypotension this AM -Head CT x 2, negative for acute pathology. -fall precautions -Neuro consulted: Continue current management #Acute Metabolic Encephalopathy -possible dehydration vs HTN urgency -mental status improved today, still confused. -Repeat orthostatics. if positive will give more fluids -Will take off restraints and monitor #HTN Urgency -improved -Cont Norvasc 5mg -Lopressor 25mg Q12 -will monitor #SALLY -slight improvement -possible obstructive vs medication induced -Ames removed, patient pulling on it -This AM, patient urinating freely -IV fluids 1/2 NS @ 75 -Bladder scan after next void -Renal on board, follow reccs #DM -BGM -ISS #Hyperkalemia -resolved -replete as needed #FEN -1/2 NS @ 75 -Replete as needed -Sodium controlled #DVT PPx -Hep SQ Dispo: awaiting PT, will likely discharge back to SNF tomorrow if patient improves Visit type - Emergency Visit Emergency Visit: Yes ED Registration Date: 10/25/17 Care time: The patient presented to the Emergency Department on the above date and was hospitalized for further evaluation of their emergent condition. - New Patient This patient is new to me today: Yes Date on this admission: 10/27/17 - Critical Care Critical Care patient: No
--- NOTE | 2017-10-27 15:17 | PN ---
Progress Note, Physician History of Present Illness: Pt seen and examined at bedside. He is much more awake and alert. His mental status is markedly improved from yesterday. - Current Medication List Current Medications: Active Medications Acetaminophen (Tylenol -) 650 mg PO Q4H PRN PRN Reason: PAIN Last Admin: 10/27/17 07:15 Dose: 650 mg Amlodipine Besylate (Norvasc -) 5 mg PO DAILY [facility] Last Admin: 10/27/17 09:44 Dose: 5 mg Atorvastatin Calcium (Lipitor -) 20 mg PO HS [facility] Last Admin: 10/26/17 21:44 Dose: 20 mg Ergocalciferol (Drisdol -) 50,000 unit PO Th@1000 [facility] Escitalopram Oxalate (Lexapro -) 10 mg PO DAILY [facility] Last Admin: 10/27/17 09:43 Dose: 10 mg Heparin Sodium (Porcine) (Heparin -) 5,000 unit SQ BID [facility] Hydralazine HCl (Apresoline Injection -) 10 mg IVPUSH Q6H PRN PRN Reason: HYPERTENSION Sodium Chloride (1/2 Normal Saline) 1,000 mls @ 75 mls/hr IV ASDIR [facility] Last Admin: 10/26/17 20:53 Dose: 75 mls/hr Insulin Aspart (Novolog Vial Sliding Scale -) 1 vial SQ ACHS [facility] PRN Reason: Protocol Last Admin: 10/27/17 12:26 Dose: Not Given Metoprolol Tartrate (Lopressor -) 25 mg PO Q12H [facility] Last Admin: 10/27/17 06:38 Dose: 25 mg Mometasone Furoate (Asmanex 220mcg -) 1 puff IH HS [facility] Last Admin: 10/26/17 21:45 Dose: 1 puff Ranolazine (Ranexa -) 500 mg PO BID [facility] Last Admin: 10/27/17 09:43 Dose: 500 mg Rivastigmine (Exelon Patch 9.5 Mg/24 Hours -) 1 each TD DAILY [facility] Last Admin: 10/27/17 09:44 Dose: 1 each Trazodone HCl (Desyrel -) 50 mg PO 1900 [facility] Last Admin: 10/26/17 18:14 Dose: 50 mg - Objective Vital Signs: Vital Signs Temperature 98.2 F 10/27/17 13:54 Pulse Rate 82 10/27/17 13:54 Respiratory Rate 18 10/27/17 13:54 Blood Pressure 146/70 10/27/17 13:54 O2 Sat by Pulse Oximetry (%) 97 10/27/17 07:52 Constitutional: Yes: Calm Eyes: Yes: Conjunctiva Clear HENT: Yes: Atraumatic Neck: Yes: Supple Cardiovascular: Yes: S1, S2 Respiratory: Yes: CTA Bilaterally Gastrointestinal: Yes: Normal Bowel Sounds, Soft Genitourinary: Yes: WNL Musculoskeletal: Yes: WNL Edema: No Neurological: Yes: Oriented Psychiatric: Yes: Oriented Labs: CBC, BMP 10/27/17 06:05 10/27/17 06:05 INR, PTT INR 0.98 (0.82-1.09) 10/24/17 20:26 Problem List - Problems (1) SALLY (acute kidney injury) Code(s): N17.9 - ACUTE KIDNEY FAILURE, UNSPECIFIED (2) Altered mental state Code(s): R41.82 - ALTERED MENTAL STATUS, UNSPECIFIED (3) DM type 2 (diabetes mellitus, type 2) Code(s): E11.9 - TYPE 2 DIABETES MELLITUS WITHOUT COMPLICATIONS Qualifiers: Diabetes mellitus complication status: with kidney complications Diabetes mellitus complication detail: with chronic kidney disease Diabetes mellitus terminal system operator insulin use: without terminal system operator use Chronic kidney disease stage: stage 3 (moderate) Qualified Code(s): E11.22 - Type 2 diabetes mellitus with diabetic chronic kidney disease; N18.3 - Chronic kidney disease, stage 3 ( moderate); N18.3 - Chronic kidney disease, stage 3 (moderate) (4) Fall Code(s): W19.XXXA - UNSPECIFIED FALL, INITIAL ENCOUNTER (5) Hyperkalemia Code(s): E87.5 - HYPERKALEMIA Assessment/Plan Current Medications Generic Name Dose Route Start Last Admin Trade Name Freq PRN Reason Stop Dose Admin Acetaminophen 650 mg 10/25/17 01:08 10/27/17 07:15 Tylenol - PO 650 mg Q4H PRN Administration PAIN Amlodipine Besylate 5 mg 10/25/17 10:00 10/27/17 09:44 Norvasc - PO 5 mg DAILY [facility] Administration Atorvastatin Calcium 20 mg 10/25/17 22:00 10/26/17 21:44 Lipitor - PO 20 mg HS [facility] Administration Ergocalciferol 50,000 unit 10/29/17 10:00 Drisdol - PO Th@1000 [facility] Escitalopram Oxalate 10 mg 10/25/17 10:00 10/27/17 09:43 Lexapro - PO 10 mg DAILY [facility] Administration Heparin Sodium (Porcine) 5,000 unit 10/27/17 22:00 Heparin - SQ BID [facility] Hydralazine HCl 10 mg 10/25/17 09:22 Apresoline Injection - IVPUSH Q6H PRN HYPERTENSION Sodium Chloride 1,000 mls @ 75 mls/hr 10/26/17 19:00 10/26/17 20:53 1/2 Normal Saline IV 75 mls/hr ASDIR [facility] Administration Insulin Aspart 1 vial 10/25/17 07:00 10/27/17 12:26 Novolog Vial Sliding Scale - SQ Not Given ACHS [facility] Protocol Metoprolol Tartrate 25 mg 10/25/17 19:00 10/27/17 06:38 Lopressor - PO 25 mg Q12H [facility] Administration Mometasone Furoate 1 puff 10/25/17 22:00 10/26/17 21:45 Asmanex 220mcg - IH 1 puff HS [facility] Administration Ranolazine 500 mg 10/25/17 10:00 10/27/17 09:43 Ranexa - PO 500 mg BID [facility] Administration Rivastigmine 1 each 10/25/17 10:00 10/27/17 09:44 Exelon Patch 9.5 Mg/24 Hours - TD 1 each DAILY [facility] Administration Trazodone HCl 50 mg 10/25/17 19:00 10/26/17 18:14 Desyrel - PO 50 mg 1900 [facility] Administration Laboratory Tests 10/24/17 10/26/17 10/27/17 22:52 05:30 05:30 BUN Creatinine Urine Protein 2+ H 1+ H Urine Blood 1+ H 2+ H Ur Random Sodium 31 Urine Creatinine 10/27/17 10/27/17 05:30 06:05 BUN 36 H Creatinine 1.6 H Urine Protein Urine Blood Ur Random Sodium Urine Creatinine 49.0 Impression 1. SALLY 2. hyperkalemia 3. s/p fall 4. depression 5. DM 6. HTN 7. change in mental status Plan - renal function is improving - first urine sodium was likely an error - repeat labs in am - cont fluids until he is tolerating diet - outpt labs pending - pt likely had SALLY from prerenal disease - will need outpt follow up as well if renal function does not return to baseline and urine findings dont improve Dr Golden
[2017-10-27] MEDS ORDERED: SODIUM CHLORIDE 0.45% 1,000 ML IV SCH (16:53)
[2017-10-27] MEDS: traZODone HCL 50 MG TABLET (FP) PO SCH (20:10)
[2017-10-27] MEDS: MOMETASONE FUROATE 220 MCG/IH INHALER IH SCH (21:47)
[2017-10-27] MEDS: ATORVASTATIN CA 20 MG TABLET (FP) PO SCH (21:47)
[2017-10-27] MEDS: HEPARIN NA (PORCINE) 5,000 UNITS/ML 1ML VIAL SQ SCH (22:27)
[2017-10-28] MEDS: METOPROLOL TARTRATE 25 MG TABLET (FP) PO SCH ×2 (06:16→18:13)
[2017-10-28] MEDS: INSULIN SLIDING SCALE (NOVOLOG) 1 VIAL SQ SCH ×4 (06:18→22:02)
[2017-10-28 08:04] LABS: CHLORIDE 105 mmol/L (98-107); POTASSIUM 3.8 mmol/L (3.5-5.1); SODIUM 138 mmol/L (136-145)
[2017-10-28 08:09] LABS: ANION GAP 10 (8-16); BLOOD UREA NITROGEN 38 mg/dL (7-18); CO2 23 mmol/L (21-32); CREATININE 1.5 mg/dL (0.7-1.3); GLUCOSE,RANDOM 168 mg/dL (74-106)
[2017-10-28] MEDS ORDERED: PT OWN MED DRAWER 7, Y5N ONE ×3 (08:38→16:29)
[2017-10-28] MEDS: HEPARIN NA (PORCINE) 5,000 UNITS/ML 1ML VIAL SQ SCH ×2 (09:28→21:39)
[2017-10-28] MEDS: RANOLAZINE E.R. 500 MG TABLET (FP) PO SCH ×2 (09:28→21:38)
[2017-10-28] MEDS: ESCITALOPRAM OXALATE 10 MG TABLET (FP) PO SCH (09:29)
[2017-10-28] MEDS: amLODIPine BESYLATE 10 MG TABLET (FP) PO SCH (09:29)
[2017-10-28] MEDS: RIVASTIGMINE 9.5 MG/24 HOURS TRANSDERMAL PATCH TD SCH (09:29)
[2017-10-28] MEDS: ACETAMINOPHEN 325 MG TABLET (FP) PO PRN (09:29)
--- NOTE | 2017-10-28 11:52 | MSN ---
Progress Note (SOAP) - Subjective Chief Complaint: Unwitnessed fall - Current Medications Current Medications: Active Medications Acetaminophen (Tylenol -) 650 mg PO Q4H PRN PRN Reason: PAIN Last Admin: 10/28/17 09:29 Dose: 650 mg Amlodipine Besylate (Norvasc -) 10 mg PO DAILY [facility] Last Admin: 10/28/17 09:29 Dose: 10 mg Atorvastatin Calcium (Lipitor -) 20 mg PO HS [facility] Last Admin: 10/27/17 21:47 Dose: 20 mg Ergocalciferol (Drisdol -) 50,000 unit PO Th@1000 [facility] Escitalopram Oxalate (Lexapro -) 10 mg PO DAILY [facility] Last Admin: 10/28/17 09:29 Dose: 10 mg Heparin Sodium (Porcine) (Heparin -) 5,000 unit SQ BID [facility] Last Admin: 10/28/17 09:28 Dose: 5,000 unit Hydralazine HCl (Apresoline Injection -) 10 mg IVPUSH Q6H PRN PRN Reason: HYPERTENSION Sodium Chloride (1/2 Normal Saline) 1,000 mls @ 100 mls/hr IV ASDIR [facility] Last Admin: 10/27/17 20:00 Dose: 100 mls/hr Insulin Aspart (Novolog Vial Sliding Scale -) 1 vial SQ ACHS [facility] PRN Reason: Protocol Last Admin: 10/28/17 11:22 Dose: 2 units Metoprolol Tartrate (Lopressor -) 25 mg PO Q12H [facility] Last Admin: 10/28/17 06:16 Dose: 25 mg Mometasone Furoate (Asmanex 220mcg -) 1 puff IH HS [facility] Last Admin: 10/27/17 21:47 Dose: 1 puff Ranolazine (Ranexa -) 500 mg PO BID [facility] Last Admin: 10/28/17 09:28 Dose: 500 mg Rivastigmine (Exelon Patch 9.5 Mg/24 Hours -) 1 each TD DAILY [facility] Last Admin: 10/28/17 09:29 Dose: 1 each Trazodone HCl (Desyrel -) 50 mg PO 1900 [facility] Last Admin: 10/27/17 20:10 Dose: 50 mg - Objective Vital Signs: Vital Signs Temperature 97.8 F 10/28/17 07:14 Pulse Rate 68 10/28/17 10:24 Respiratory Rate 20 10/28/17 07:14 Blood Pressure 145/67 10/28/17 10:24 O2 Sat by Pulse Oximetry (%) 97 10/28/17 07:12 Constitutional: Yes: Well Nourished, No Distress, Calm Eyes: Yes: EOM Intact HENT: Yes: Atraumatic, Normocephalic Cardiovascular: Yes: Regular Rate and Rhythm Respiratory: Yes: Regular, CTA Bilaterally Gastrointestinal: Yes: Normal Bowel Sounds, Soft Musculoskeletal: Yes: WNL Extremities: Yes: WNL Peripheral Pulses WNL: Yes Edema: No Integumentary: Yes: WNL Neurological: Yes: Alert, Oriented ...Motor Strength: Yes: WNL Labs Lab Results: CBC, BMP 10/27/17 06:05 10/28/17 05:05 Problem List - Problems (1) Unwitnessed fall Code(s): R29.6 - REPEATED FALLS (2) SALLY (acute kidney injury) Code(s): N17.9 - ACUTE KIDNEY FAILURE, UNSPECIFIED (3) Hypertensive urgency Code(s): I16.0 - HYPERTENSIVE URGENCY (4) DM type 2 (diabetes mellitus, type 2) Code(s): E11.9 - TYPE 2 DIABETES MELLITUS WITHOUT COMPLICATIONS Qualifiers: Diabetes mellitus complication status: with kidney complications Diabetes mellitus complication detail: with chronic kidney disease Diabetes mellitus ferry terminal supervisor insulin use: without long-term use Chronic kidney disease stage: stage 3 (moderate) Qualified Code(s): E11.22 - Type 2 diabetes mellitus with diabetic chronic kidney disease; N18.3 - Chronic kidney disease, stage 3 ( moderate); N18.3 - Chronic kidney disease, stage 3 (moderate) (5) Dementia Code(s): F03.90 - UNSPECIFIED DEMENTIA WITHOUT BEHAVIORAL DISTURBANCE Qualifiers: Dementia type: Alzheimer's disease Alzheimer's disease onset: unspecified onset Dementia behavioral disturbance: with behavioral disturbance Qualified Code(s): G30.9 - Alzheimer's disease, unspecified; F02.81 - Dementia in other diseases classified elsewhere with behavioral disturbance; F02.81 - Dementia in other diseases classified elsewhere with behavioral disturbance; F02.81 - Dementia in other diseases classified elsewhere with behavioral disturbance
[2017-10-28] MEDS ORDERED: SODIUM CHLORIDE 1,000 ML IV SCH ×2 (12:00→12:48)
--- NOTE | 2017-10-28 12:30 | PN ---
Teaching Attending Note Name of Resident: Jabari Painting ATTENDING PHYSICIAN STATEMENT I saw and evaluated the patient. I reviewed the resident's note and discussed the case with the resident. I agree with the resident's findings and plan as documented. SUBJECTIVE:c/o "faintness" when standing up. lasts only a couple of seconds. denies CP, SOB, fever, chills, N/V/C/D refusing to wear teletypesetter monitor OBJECTIVE: Last Vital Signs Temp Pulse Resp BP Pulse Ox 97.8 F 68 20 145/67 97 10/28/17 07:14 10/28/17 10:24 10/28/17 07:14 10/28/17 10:24 10/28/17 07:12 General NAD A&O x3 HEENT no nystagmus, EOMI HEENT +L parietal scalp hematoma, no nystagmus Lungs CTA B/L anteriorly no wheezing/rales/rhonchi ASSESSMENT AND PLAN: 77 yo M with Dementia, NIDDM, HTN, 'cardiac arrhythmia', Admitted with unwitnessed fall, Hypertensive urgency, SALLY vs CKD stage III. 1. Unwitnessed fall- can not r/o syncope. does not recall hitting his head but does have scalp hematoma. CT head neg x2. echo noted with no major valve abnormalities. 2. Acute metabolic encephalopathy-possible dehydration vs due to HTN urgency. appears to be at baseline. been off restraints 24H with no periods of agitation or aggression. repeat orthostatics +. will switch 1/2NS to NS. evaluated by neuropsych who recommends dementia meds adjustment as outpatient. cont exelon patch. 3. SALLY-possible obstructive vs medication induced. unknown baseline. slowly improving. renal on board. 4. HTN urgency- uncontrolled. increase norvasc 10mg. 5. Hyperkaelmia- resolved. s/p kayexylate 6. DM- controlled. cont iss. re-start home medications on discharge 7. DVT ppx-hep sq 8. ambulated 100ft with PT. will re-assess later today. if symptoms resolved can go to SNF.
--- NOTE | 2017-10-28 12:48 | PN ---
Progress Note, Physician History of Present Illness: Pt seen and examined at bedside. He says that he gets light headed when he stands. - Current Medication List Current Medications: Active Medications Acetaminophen (Tylenol -) 650 mg PO Q4H PRN PRN Reason: PAIN Last Admin: 10/28/17 09:29 Dose: 650 mg Amlodipine Besylate (Norvasc -) 10 mg PO DAILY [facility] Last Admin: 10/28/17 09:29 Dose: 10 mg Atorvastatin Calcium (Lipitor -) 20 mg PO HS [facility] Last Admin: 10/27/17 21:47 Dose: 20 mg Ergocalciferol (Drisdol -) 50,000 unit PO Th@1000 [facility] Escitalopram Oxalate (Lexapro -) 10 mg PO DAILY [facility] Last Admin: 10/28/17 09:29 Dose: 10 mg Heparin Sodium (Porcine) (Heparin -) 5,000 unit SQ BID [facility] Last Admin: 10/28/17 09:28 Dose: 5,000 unit Hydralazine HCl (Apresoline Injection -) 10 mg IVPUSH Q6H PRN PRN Reason: HYPERTENSION Sodium Chloride (Normal Saline -) 1,000 mls @ 100 mls/hr IV ASDIR [facility] Insulin Aspart (Novolog Vial Sliding Scale -) 1 vial SQ ACHS [facility] PRN Reason: Protocol Last Admin: 10/28/17 11:22 Dose: 2 units Metoprolol Tartrate (Lopressor -) 25 mg PO Q12H [facility] Last Admin: 10/28/17 06:16 Dose: 25 mg Mometasone Furoate (Asmanex 220mcg -) 1 puff IH [facility] Last Admin: 10/27/17 21:47 Dose: 1 puff Ranolazine (Ranexa -) 500 mg PO BID [facility] Last Admin: 10/28/17 09:28 Dose: 500 mg Rivastigmine (Exelon Patch 9.5 Mg/24 Hours -) 1 each TD DAILY [facility] Last Admin: 10/28/17 09:29 Dose: 1 each Trazodone HCl (Desyrel -) 50 mg PO 1900 [facility] Last Admin: 10/27/17 20:10 Dose: 50 mg - Objective Vital Signs: Vital Signs Temperature 97.8 F 10/28/17 07:14 Pulse Rate 68 10/28/17 10:24 Respiratory Rate 20 10/28/17 07:14 Blood Pressure 145/67 10/28/17 10:24 O2 Sat by Pulse Oximetry (%) 97 10/28/17 07:12 Constitutional: Yes: Calm Eyes: Yes: Conjunctiva Clear HENT: Yes: Atraumatic Cardiovascular: Yes: S1, S2 Respiratory: Yes: CTA Bilaterally Gastrointestinal: Yes: Normal Bowel Sounds, Soft Genitourinary: Yes: WNL Musculoskeletal: Yes: WNL Edema: No Integumentary: Yes: WNL Neurological: Yes: Oriented Psychiatric: Yes: Oriented Labs: CBC, BMP 10/27/17 06:05 10/28/17 05:05 INR, PTT INR 0.98 (0.82-1.09) 10/24/17 20:26 Problem List - Problems (1) SALLY (acute kidney injury) Code(s): N17.9 - ACUTE KIDNEY FAILURE, UNSPECIFIED (2) Altered mental state Code(s): R41.82 - ALTERED MENTAL STATUS, UNSPECIFIED (3) DM type 2 (diabetes mellitus, type 2) Code(s): E11.9 - TYPE 2 DIABETES MELLITUS WITHOUT COMPLICATIONS Qualifiers: Diabetes mellitus complication status: with kidney complications Diabetes mellitus complication detail: with chronic kidney disease Diabetes mellitus termite control service representative insulin use: without fdc use Chronic kidney disease stage: stage 3 (moderate) Qualified Code(s): E11.22 - Type 2 diabetes mellitus with diabetic chronic kidney disease; N18.3 - Chronic kidney disease, stage 3 ( moderate); N18.3 - Chronic kidney disease, stage 3 (moderate) (4) Fall Code(s): W19.XXXA - UNSPECIFIED FALL, INITIAL ENCOUNTER (5) Hyperkalemia Code(s): E87.5 - HYPERKALEMIA Assessment/Plan Current Medications Generic Name Dose Route Start Last Admin Trade Name Freq PRN Reason Stop Dose Admin Acetaminophen 650 mg 10/25/17 01:08 10/28/17 09:29 Tylenol - PO 650 mg Q4H PRN Administration PAIN Amlodipine Besylate 10 mg 10/28/17 10:00 10/28/17 09:29 Norvasc - PO 10 mg DAILY [facility] Administration Atorvastatin Calcium 20 mg 10/25/17 22:00 10/27/17 21:47 Lipitor - PO 20 mg HS [facility] Administration Ergocalciferol 50,000 unit 10/29/17 10:00 Drisdol - PO Th@1000 [facility] Escitalopram Oxalate 10 mg 10/25/17 10:00 10/28/17 09:29 Lexapro - PO 10 mg DAILY [facility] Administration Heparin Sodium (Porcine) 5,000 unit 10/27/17 22:00 10/28/17 09:28 Heparin - SQ 5,000 unit BID [facility] Administration Hydralazine HCl 10 mg 10/25/17 09:22 Apresoline Injection - IVPUSH Q6H PRN HYPERTENSION Sodium Chloride 1,000 mls @ 100 mls/hr 10/28/17 12:00 Normal Saline - IV ASDIR [facility] Insulin Aspart 1 vial 10/25/17 07:00 10/28/17 11:22 Novolog Vial Sliding Scale - SQ 2 units ACHS [facility] Administration Protocol Metoprolol Tartrate 25 mg 10/25/17 19:00 10/28/17 06:16 Lopressor - PO 25 mg Q12H [facility] Administration Mometasone Furoate 1 puff 10/25/17 22:00 10/27/17 21:47 Asmanex 220mcg - IH 1 puff HS [facility] Administration Ranolazine 500 mg 10/25/17 10:00 10/28/17 09:28 Ranexa - PO 500 mg BID [facility] Administration Rivastigmine 1 each 10/25/17 10:00 10/28/17 09:29 Exelon Patch 9.5 Mg/24 Hours - TD 1 each DAILY [facility] Administration Trazodone HCl 50 mg 10/25/17 19:00 10/27/17 20:10 Desyrel - PO 50 mg 1900 [facility] Administration Impression 1. SALLY 2. hyperkalemia 3. s/p fall 4. depression 5. DM 6. HTN 7. change in mental status Plan - agree with increasing dose of norvasc - check orthostatic vitals - repeat bp improved - decrease rate of fluids - renal function is stabilizing - pt likely had SALLY from prerenal disease Dr Golden
[2017-10-28] MEDS ORDERED: SODIUM CHLORIDE 0.45% 1,000 ML IV SCH (13:00)
[2017-10-28] MEDS ORDERED: SODIUM CHLORIDE 1,000 ML IV STA (15:17)
--- NOTE | 2017-10-28 16:57 | PN ---
Physical Exam: SUBJECTIVE: Patient seen and examined. No acute events overnight. Patient still complains of dizziness when standing up quickly. Denies sob, chest pain, nausea , vomiting. 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 OBJECTIVE: Vital Signs Period Temp Pulse Resp BP Sys/Reynoso Pulse Ox Last 24 Hr 97.4 F-98.7 F 65-81 18-20 115-177/47-77 97-97 GENERAL: A/o x 3, forgetful Head: +L parietal scalp hematoma EYES: PERRL, extraocular movements intact ENT: oropharynx clear without exudates, moist mucous membranes. NECK: supple. LUNGS: Breath sounds equal, clear to auscultation bilaterally, no wheezes, no crackles, no accessory muscle use. HEART: Regular rate and rhythm, S1, S2 without murmur, rub or gallop. ABDOMEN: Soft, nontender, nondistended, normoactive bowel sounds, no guarding, no rebound, no hepatosplenomegaly, no masses. EXTREMITIES: 2+ pulses, warm, well-perfused, no edema. NEUROLOGICAL: no facial droop, symmetric face, Cranial nerves II through XII grossly intact, normal finger to nose, heel to glynn. SKIN: Warm, dry, normal turgor, no rashes or lesions noted Laboratory Results - last 24 hr 10/27/17 10/27/17 10/28/17 16:45 21:50 05:05 Sodium 138 Potassium 3.8 Chloride 105 Carbon Dioxide 23 Anion Gap 10 BUN 38 H Creatinine 1.5 H POC Glucometer 180 305 Random Glucose 168 H D Calcium 8.0 L 10/28/17 10/28/17 05:49 11:19 Sodium Potassium Chloride Carbon Dioxide Anion Gap BUN Creatinine POC Glucometer 181 191 Random Glucose Calcium Active Medications Generic Name Dose Route Start Last Admin Trade Name Freq PRN Reason Stop Dose Admin Acetaminophen 650 mg 10/25/17 01:08 10/28/17 09:29 Tylenol - PO 650 mg Q4H PRN Administration PAIN Amlodipine Besylate 10 mg 10/28/17 10:00 10/28/17 09:29 Norvasc - PO 10 mg DAILY GILES Administration Atorvastatin Calcium 20 mg 10/25/17 22:00 10/27/17 21:47 Lipitor - PO 20 mg HS GILES Administration Ergocalciferol 50,000 unit 10/29/17 10:00 Drisdol - PO Th@1000 GILES Escitalopram Oxalate 10 mg 10/25/17 10:00 10/28/17 09:29 Lexapro - PO 10 mg DAILY GILES Administration Heparin Sodium (Porcine) 5,000 unit 10/27/17 22:00 10/28/17 09:28 Heparin - SQ 5,000 unit BID GILES Administration Hydralazine HCl 10 mg 10/25/17 09:22 Apresoline Injection - IVPUSH Q6H PRN HYPERTENSION Insulin Aspart 1 vial 10/25/17 07:00 10/28/17 11:22 Novolog Vial Sliding Scale - SQ 2 units ACHS GILES Administration Protocol Metoprolol Tartrate 25 mg 10/25/17 19:00 10/28/17 06:16 Lopressor - PO 25 mg Q12H GILES Administration Mometasone Furoate 1 puff 10/25/17 22:00 10/27/17 21:47 Asmanex 220mcg - IH 1 puff HS GILES Administration Ranolazine 500 mg 10/25/17 10:00 10/28/17 09:28 Ranexa - PO 500 mg BID GILES Administration Rivastigmine 1 each 10/25/17 10:00 10/28/17 09:29 Exelon Patch 9.5 Mg/24 Hours - TD 1 each DAILY GILES Administration Trazodone HCl 50 mg 10/25/17 19:00 10/27/17 20:10 Desyrel - PO 50 mg 1900 GILES Administration ASSESSMENT/PLAN: 77 yo m with Dementia, NIDDM, HTN, admitted for an unwitnessed fall, HTN urgency , SALLY vs CKD stage III. #Unwitnessed Fall -Cannot r/o syncopal episode as patient has history of unknown arrhythmia. -Echo: EF 54%, Trace MR, TR -Carotid dopplers: No evidence of high grade internal carotid artery stenosis. Prominent atherosclerotic carotid artery calcification. -Orthostatic hypotension this AM -Denies hitting head but has scalp hematoma -Head CT x 2, negative for acute pathology. -fall precautions -Neuro consulted: Continue current management #Acute Metabolic Encephalopathy -possible dehydration vs HTN urgency -mental status improved today -Repeat orthostatics. if positive will give more fluids -Will take off restraints and monitor #HTN Urgency -improved -Increased Norvasc 10mg -Lopressor 25mg Q12 -will monitor #SALLY -slight improvement -possible obstructive vs medication induced -Ames removed, patient pulling on it -IV fluids / NS @ 50 -Renal on board, follow reccs #DM -BGM -ISS #Hyperkalemia -resolved -replete as needed #FEN -1/2 NS @ 75 -Replete as needed -Sodium controlled #DVT PPx -Hep SQ Dispo: Will discharge tomorrow if patient improves. Visit type - Emergency Visit Emergency Visit: Yes ED Registration Date: 10/25/17 Care time: The patient presented to the Emergency Department on the above date and was hospitalized for further evaluation of their emergent condition. - New Patient This patient is new to me today: No - Critical Care Critical Care patient: No
[2017-10-28] MEDS: traZODone HCL 50 MG TABLET (FP) PO SCH (18:13)
[2017-10-28] MEDS: ATORVASTATIN CA 20 MG TABLET (FP) PO SCH (21:38)
[2017-10-28] MEDS: MOMETASONE FUROATE 220 MCG/IH INHALER IH SCH (21:41)
[2017-10-28] MEDS ORDERED: QUEtiapine FUMARATE 25 MG TABLET (FP) PO SCH (22:00)
[2017-10-29 05:21] VITALS: TEMP 98
[2017-10-29] MEDS: METOPROLOL TARTRATE 25 MG TABLET (FP) PO SCH (06:14)
[2017-10-29] MEDS: INSULIN SLIDING SCALE (NOVOLOG) 1 VIAL SQ SCH ×2 (06:15→11:30)
[2017-10-29 06:58] LABS: ANION GAP 10 (8-16); BLOOD UREA NITROGEN 27 mg/dL (7-18); CALCIUM 7.9 mg/dL (8.5-10.1); CHLORIDE 104 mmol/L (98-107); CO2 23 mmol/L (21-32); CREATININE 1.4 mg/dL (0.7-1.3); GLUCOSE,RANDOM 171 mg/dL (74-106); POTASSIUM 3.8 mmol/L (3.5-5.1); SODIUM 137 mmol/L (136-145)
[2017-10-29] MEDS: ESCITALOPRAM OXALATE 10 MG TABLET (FP) PO SCH (09:47)
[2017-10-29] MEDS: amLODIPine BESYLATE 10 MG TABLET (FP) PO SCH (09:47)
[2017-10-29] MEDS: RANOLAZINE E.R. 500 MG TABLET (FP) PO SCH (09:47)
[2017-10-29] MEDS: HEPARIN NA (PORCINE) 5,000 UNITS/ML 1ML VIAL SQ SCH (09:47)
[2017-10-29] MEDS: RIVASTIGMINE 9.5 MG/24 HOURS TRANSDERMAL PATCH TD SCH (09:47)
[2017-10-29] MEDS ORDERED: ERGOCALCIFEROL (VITAMIN D2) 50,000 UNIT CAPSULE (FP) PO SCH (10:00)
[2017-10-29] MEDS ORDERED: INSULIN (NOVOLOG) ASPART 100 UNITS/ML 10ML VIAL ONE (11:24)
[2017-10-29 12:14] VITALS: BP 162/89; PULSE 85
--- NOTE | 2017-10-29 13:10 | PN ---
Teaching Attending Note Name of Resident: Jabari Painting ATTENDING PHYSICIAN STATEMENT I saw and evaluated the patient. I reviewed the resident's note and discussed the case with the resident. I agree with the resident's findings and plan as documented. SUBJECTIVE:symptoms resolved. no more recurring episodes of dizzyness. denies CP , SOB, fever, chills, N/V/C/D OBJECTIVE: General NAD A&O x3 ASSESSMENT AND PLAN: 77 yo M with Dementia, NIDDM, HTN, 'cardiac arrhythmia', Admitted with unwitnessed fall, Hypertensive urgency, SALLY vs CKD stage III. 1. Unwitnessed fall- can not r/o syncope. does not recall hitting his head but does have scalp hematoma. CT head neg x2. echo noted with no major valve abnormalities. 2. Acute metabolic encephalopathy-possible dehydration vs due to HTN urgency. appears to be at baseline. intermittent confusion. evaluated by neuropsych who recommends dementia meds adjustment as outpatient. cont exelon patch. 3. Symptomatic hypotension- now resolved. no longer symptomatic. repeat orthostatics negative. advised pt to get up slowly from laying down position 4. SALLY-possible obstructive vs medication induced. unknown baseline. slowly improving. renal on board. 5. HTN urgency- improved. cont current management 6. Hyperkaelmia- resolved. s/p kayexylate 7. DM- controlled. cont iss. re-start home medications on discharge 8. DVT ppx-hep sq 9. d/c to SNF today
--- NOTE | 2017-10-29 13:51 | DS ---
Physical Exam: SUBJECTIVE: Patient seen and examined. No acute events overnight. Says dizziness resolved. Denies chest pain, sob, lightheadedness, fevers, chills, dysuria, diarrhea. OBJECTIVE: Vital Signs Period Temp Pulse Resp BP Sys/Reynoso Pulse Ox Last 24 Hr 98 F-99.0 F 65-98 18-20 120-183/49-89 97-98 PHYSICAL EXAM GENERAL: A/o x 3, forgetful Head: +L parietal scalp hematoma EYES: PERRL, extraocular movements intact ENT: oropharynx clear without exudates, moist mucous membranes. NECK: supple. LUNGS: Breath sounds equal, clear to auscultation bilaterally, no wheezes, no crackles, no accessory muscle use. HEART: Regular rate and rhythm, S1, S2 without murmur, rub or gallop. ABDOMEN: Soft, nontender, nondistended, normoactive bowel sounds, no guarding, no rebound, no hepatosplenomegaly, no masses. EXTREMITIES: 2+ pulses, warm, well-perfused, no edema. NEUROLOGICAL: no facial droop, symmetric face, Cranial nerves II through XII grossly intact, normal finger to nose, heel to glynn. SKIN: Warm, dry, normal turgor, no rashes or lesions noted LABS Laboratory Results - last 24 hr 10/28/17 10/28/17 10/29/17 16:58 21:17 05:05 Sodium 137 Potassium 3.8 Chloride 104 Carbon Dioxide 23 Anion Gap 10 BUN 27 H D Creatinine 1.4 H POC Glucometer 197 211 Random Glucose 171 H Calcium 7.9 L 10/29/17 10/29/17 05:55 11:28 Sodium Potassium Chloride Carbon Dioxide Anion Gap BUN Creatinine POC Glucometer 186 220 Random Glucose Calcium HOSPITAL COURSE: Date of Admission:10/25/17 77 yo m with Dementia, NIDDM, HTN, admitted for an unwitnessed fall, HTN urgency , SALLY vs CKD stage III. The fall was likely secondary to syncope due to dehydration and hypovolemia. Head CT x 2, negative for acute pathology. Echo was done which was unremarkable. Carotid dopplers: No evidence of high grade internal carotid artery stenosis. Prominent atherosclerotic carotid artery calcification. Patient had positive orthostatic. Neuro consulted, which agreed with management. Patient clinically improved with fluid resuscitation with kidney function also improved. Patient is medically cleared for discharged and will be transferred to SNF. There have been changes to his blood pressure medications. He will be sent home on Norvasc 10mg and Lopressor 25 BID. All questions answered and patient in agreement to follow up with PCP. Date of Discharge: 10/29/17 Minutes to complete discharge: 35 Discharge Summary Reason For Visit: FALL,HYPERTENSION Current Active Problems SALLY (acute kidney injury) (Acute) Altered mental state (Acute) DM type 2 (diabetes mellitus, type 2) (Acute) Dementia (Acute) Fall (Acute) Hyperkalemia (Acute) Hypertensive urgency (Acute) Hypomagnesemia (Acute) Unwitnessed fall (Acute) Condition: Improved - Instructions Diet, Activity, Other Instructions: You were admitted because you had an unwitnessed fall and elevated blood pressure. One reason why you may have fell was because you were dehydrated. Make sure to drink plenty of fluids to remain hydrated. You will need to follow up with your primary care physician in 1 week. You should have your kidney function tested. You will need to monitor your blood pressure daily. You should follow up with a psychiatrist, You may benefit from adjustment to your dementia medications. When you get up from a seated position, make sure to get up slowly. If you experience chest pain, Shortness of breath, worsening dizziness, new fevers, nausea or vomiting, call your primary care physician immediately or go to the nearest emergency room. Referrals: Yaya Rebolledo MD [Primary Care Provider] - 1 Week Disposition: HALF-WAY FACILITY - Home Medications Comprehensive Discharge Medication List: Ambulatory Orders Aspirin [ASA -] 81 mg PO DAILY 10/25/17 Ergocalciferol [Vitamin D2] 50,000 unit PO Q7D@1000 10/25/17 Escitalopram Oxalate [Lexapro -] 10 mg PO DAILY 10/25/17 Fluticasone Propionate [Flovent Diskus] 50 mcg IH DAILY 10/25/17 Glipizide 10 mg PO DAILY 10/25/17 Linagliptin [Tradjenta] 5 mg PO DAILY 10/25/17 Loperamide HCl [Imodium A-D] 2 mg PO DAILY 10/25/17 Rialto-3 Fatty Acids [Rialto-3] 2,000 mg PO BID 10/25/17 Polyvinyl Alcohol [Artificial Tears] 1 drop OP DAILY 10/25/17 Pravastatin Sodium [Pravachol -] 80 mg PO HS 10/25/17 Ranolazine [Ranexa] 500 mg PO BID 10/25/17 Rivastigmine [Exelon Patch 9.5 mg/24 Hours -] 1 each TD DAILY 10/25/17 Trazodone HCl 50 mg PO HS 10/25/17 Amlodipine Besylate [Norvasc -] 10 mg PO DAILY tablet 10/28/17 Metoprolol Tartrate [Lopressor -] 25 mg PO Q12H tablet 10/28/17 This patient is new to me today: No Emergency Visit: Yes ED Registration Date: 10/25/17 Care time: The patient presented to the Emergency Department on the above date and was hospitalized for further evaluation of their emergent condition. Critical Care patient: No - Discharge Referral Referred to [facility] No
--- NOTE | 2017-10-29 18:01 | PN ---
Progress Note, Physician History of Present Illness: Pt seen and examined at bedside. He is awake and alert. He feels better today. He denies shortness of breath. - Objective Vital Signs: Vital Signs Temperature 98 F 10/29/17 05:20 Pulse Rate 84 10/29/17 10:00 Respiratory Rate 18 10/29/17 10:00 Blood Pressure 125/56 10/29/17 10:00 O2 Sat by Pulse Oximetry (%) 98 10/29/17 10:00 Constitutional: Yes: Calm Eyes: Yes: Conjunctiva Clear HENT: Yes: Atraumatic Cardiovascular: Yes: S1, S2 Respiratory: Yes: CTA Bilaterally Gastrointestinal: Yes: Normal Bowel Sounds, Soft Genitourinary: Yes: WNL Edema: No Neurological: Yes: Oriented Labs: CBC, BMP 10/27/17 06:05 10/29/17 05:05 INR, PTT INR 0.98 (0.82-1.09) 10/24/17 20:26 Problem List - Problems (1) SALLY (acute kidney injury) Code(s): N17.9 - ACUTE KIDNEY FAILURE, UNSPECIFIED (2) Altered mental state Code(s): R41.82 - ALTERED MENTAL STATUS, UNSPECIFIED (3) DM type 2 (diabetes mellitus, type 2) Code(s): E11.9 - TYPE 2 DIABETES MELLITUS WITHOUT COMPLICATIONS Qualifiers: Diabetes mellitus complication status: with kidney complications Diabetes mellitus complication detail: with chronic kidney disease Diabetes mellitus fire chief's aide insulin use: without fire chief's aide use Chronic kidney disease stage: stage 3 (moderate) Qualified Code(s): E11.22 - Type 2 diabetes mellitus with diabetic chronic kidney disease; N18.3 - Chronic kidney disease, stage 3 ( moderate); N18.3 - Chronic kidney disease, stage 3 (moderate) (4) Fall Code(s): W19.XXXA - UNSPECIFIED FALL, INITIAL ENCOUNTER (5) Hyperkalemia Code(s): E87.5 - HYPERKALEMIA Assessment/Plan Impression 1. SALLY 2. hyperkalemia 3. s/p fall 4. depression 5. DM 6. HTN 7. change in mental status Plan - renal function is stabilizing - can see pt in office for workup - mental status is markedly improved - check bmp in [place] - pt likely had SALLY from prerenal disease Dr Golden
== END 2017-10-29 16:34 | DRG 682 ==
LOC: JER 21:24 → JERBED 10-25 01:11 → J4W 10-25 03:51 → OBSVTOIN 10-25 16:20
PROVIDERS: ADMIT Internal Medicine; ATTEND Internal Medicine
DX: N17.9 Acute kidney failure, unspecified (principal); G93.41 Metabolic encephalopathy; I12.9 Hypertensive chronic kidney disease with stage 1 through stage 4 chronic kidney disease, or unspecified chronic kidney disease; E11.22 Type 2 diabetes mellitus with diabetic chronic kidney disease; N18.3 Chronic kidney disease, stage 3 (moderate); E87.5 Hyperkalemia; E86.0 Dehydration; I16.0 Hypertensive urgency; E83.42 Hypomagnesemia; G30.9 Alzheimer's disease, unspecified; F02.80 Dementia in other diseases classified elsewhere, unspecified severity, without behavioral disturbance, psychotic disturbance, mood disturbance, and anxiety; E86.1 Hypovolemia; R00.0 Tachycardia, unspecified; R41.82 Altered mental status, unspecified; I25.10 Atherosclerotic heart disease of native coronary artery without angina pectoris; F32.9 Major depressive disorder, single episode, unspecified; E78.5 Hyperlipidemia, unspecified; R29.6 Repeated falls; S00.03XA Contusion of scalp, initial encounter; H70.891 Other mastoiditis and related conditions, right ear; S09.8XXA Other specified injuries of head, initial encounter; W18.39XA Other fall on same level, initial encounter; Y92.098 Other place in other non-institutional residence as the place of occurrence of the external cause; Z95.1 Presence of aortocoronary bypass graft
CPT/HCPCS: 36415; 70450-TC; 71045-TC-FY; 72125-TC; 74176-TC; 76775-TC; 76856-TC; 80048; 80053; 81003; 81015; 82436; 82550; 82570; 82962; 83036; 83735; 84100; 84133; 84300; 84484; 85025; 85379; 85610; 87086; 93005; 93010; 93306-TC; 93880-TC; 97116-GP; 97161-GP; 99285-25; G0378; J0735; J1644

== ENCOUNTER 2018-05-19 02:53 | Emergency (ER) | payer OTHER ==
[2018-05-19 03:08] LABS: BASO % 0.4 % (0-2.0); EOS % 2.6 % (0-4.5); HEMATOCRIT 33.6 % (35.4-49); HEMOGLOBIN 11.4 GM/dL (11.7-16.9); LYMPH % 15.9 % (8-40); MCH 29.4 pg (25.7-33.7); MCHC 33.9 g/dl (32.0-35.9); MEAN CELL VOLUME 86.7 fl (80-96); MEAN PLT VOLUME 8.8 fl (7.5-11.1); MONO % 7.4 % (3.8-10.2); NEUT % 73.7 % (42.8-82.8); PLATELET COUNT 142 K/MM3 (134-434); RBC 3.87 M/mm3 (4.00-5.60); RDW 14.6 % (11.9-15.9)
[2018-05-19] MEDS ORDERED: CALCIUM GLUCONATE 10% - 1,000 MG/10 ML VIAL IVPUSH ONE (03:09)
--- NOTE | 2018-05-19 03:10 | PDOC ---
Attending Attestation - HPI HPI: 05/19/18 03:17 The patient is a 78 year old male, with a significant past medical history of cardiac arrhythmias, depression, HLD, CAD s/p CABG, Alzheimer's disease, DM, who presents to the emergency department via EMS from [facility] on [address] with, hyperkalemia. As per EMS, the patient had a potassium level of 8.2 on lab work done on 05/17. He was given Kayexalate today then became agitated prompting his visit to the ER. He denies any recent fevers, chills, headache or dizziness. He denies any recent nausea, vomit, diarrhea or constipation. He denies any recent chest pain or shortness of breath. He denies any recent dysuria, frequency, urgency or hematuria. Allergies: NKA Social History: Nonsmoker. Denies EtOH use and recreational drug use. Primary Care Physician: Dr. Rebolledo - Physicial Exam PE: 05/19/18 04:10 GENERAL: The patient is in no acute distress. HEAD: Normal with no signs of trauma. EYES: PERRLA, EOMI, sclera anicteric, conjunctiva clear. ENT: Ears normal, nares patent, oropharynx clear without exudates. Moist mucous membranes. NECK: Normal range of motion, supple without lymphadenopathy, JVD, or masses. LUNGS: Breath sounds equal, clear to auscultation bilaterally. No wheezes, and no crackles. HEART:Regular rate and rhythm, normal S1 and S2 without murmur, rub or gallop. ABDOMEN: Soft, nontender, normoactive bowel sounds. No guarding, no rebound. No masses palpable. EXTREMITIES: Normal range of motion, no edema. No clubbing or cyanosis. No erythema, or tenderness. NEUROLOGICAL: Cranial nerves II through XII grossly intact. Normal speech. No focal neurological deficits. MUSCULOSKELETAL: Back non-tender to palpation, no CVA tenderness SKIN: Warm, Dry, normal turgor, no rashes or lesions noted. <Breanna Hi - Last Filed: 05/19/18 04:10> - Resident Resident Name: Adilson Sanchez - ED Attending Attestation I have performed the following: I have examined & evaluated the patient, The case was reviewed & discussed with the resident, I agree w/resident's findings & plan, Exceptions are as noted - Medical Decision Making 05/20/18 01:15 Mr. Argueta is a 78-year-old male with multiple medical problems presents emergency department for evaluation of hyperkalemia. Patient was found on labs the day prior to presentation to the ER to have a potassium of 8. He was given Kayexalate. Labs are rechecked but are pending today. Apparently patient became agitated and staff opted to send him to the emergency department for evaluation. Patient has no complaints to me at this time. Examination is unremarkable. Will repeat labs Will do EKG Laboratory Tests 05/19/18 05/19/18 02:57 02:57 WBC 9.0 Hgb 11.4 L Hct 33.6 L Plt Count 142 D Sodium 139 Potassium 5.4 H D Chloride 111 H Carbon Dioxide 22 Anion Gap 6 L BUN 39 H Creatinine 1.9 H Will discharge back to facility Pt given IV hydration for SALLY Labs sent to facility so that they can further monitor pt potassium and renal function <Yara Stoddard - Last Filed: 05/20/18 02:18> Attestations - Attestations 05/19/18 03:17 Documentation prepared by Breanna Hi, acting as manager medical for Yara Stoddard MD. <Breanna Hi - Last Filed: 05/19/18 04:10>
[2018-05-19] MEDS ORDERED: ALBUTEROL SO4 0.083% IH SOL 2.5 MG/3 ML VIAL.NEB. NEB ONE ×2 (03:12→03:16)
[2018-05-19] MEDS ORDERED: DEXTROSE 50%-WATER - 25 GM/50 ML VIAL IVPUSH ONE (03:12)
[2018-05-19] MEDS ORDERED: INSULIN REGULAR HUMAN 100 UNITS/ML *VIAL IVPUSH ONE (03:12)
[2018-05-19] MEDS ORDERED: CALCIUM GLUCONATE 10% - 1,000 MG/10 ML VIAL ONE (03:16)
[2018-05-19] MEDS ORDERED: DEXTROSE 50%-WATER 25 GM/50 ML DISP.SYRIN ONE (03:16)
[2018-05-19] MEDS ORDERED: INSULIN REGULAR HUMAN 100 UNITS/ML *VIAL ONE (03:17)
--- NOTE | 2018-05-19 03:20 | PDOC ---
History of Present Illness - General Chief Complaint: Revisit, Lab Variance Stated Complaint: ABNORMAL LABS Time Seen by Provider: 05/19/18 02:56 History Source: Patient, Care Home Records Exam Limitations: No Limitations - History of Present Illness Initial Comments: 05/19/18 03:18 Patient is a 78M with history of CAD s/p CABG, DM, depression here today from [facility] complaining of hyperkalemia. detention records report that his K was 8.2. He was given kayexalate. Records report that the patient refused IV fluids and became combative with staff. Patient has no complaints. Denies chest pain, shortness of breath, nausea, vomiting, palpitations. Review of records shows a prior SALLY but no evidence of ESRD. Past History - Past Medical History Allergies/Adverse Reactions: Allergies Allergy/AdvReac Type Severity Reaction Status Date / Time No Known Allergies Allergy Verified 05/19/18 03:05 Home Medications: Ambulatory Orders Aspirin [ASA -] 81 mg PO DAILY 10/25/17 Ergocalciferol [Vitamin D2] 50,000 unit PO Q7D@1000 10/25/17 Escitalopram Oxalate [Lexapro -] 10 mg PO DAILY 10/25/17 Fluticasone Propionate [Flovent Diskus] 50 mcg IH DAILY 10/25/17 Glipizide 10 mg PO DAILY 10/25/17 Linagliptin [Tradjenta] 5 mg PO DAILY 10/25/17 Loperamide HCl [Imodium A-D] 2 mg PO DAILY 10/25/17 Chadwick-3 Fatty Acids [Chadwick-3] 2,000 mg PO BID 10/25/17 Polyvinyl Alcohol [Artificial Tears] 1 drop OP DAILY 10/25/17 Pravastatin Sodium [Pravachol -] 80 mg PO HS 10/25/17 Ranolazine [Ranexa] 500 mg PO BID 10/25/17 Rivastigmine [Exelon Patch 9.5 mg/24 Hours -] 1 each TD DAILY 10/25/17 traZODone HCL [Trazodone HCl] 50 mg PO HS 10/25/17 Amlodipine Besylate [Norvasc -] 10 mg PO DAILY tablet 10/28/17 Metoprolol Tartrate [Lopressor -] 25 mg PO Q12H tablet 10/28/17 Cardiac Disorders: (pectoris angina, arrhythmias, CAD) Dementia: Yes Diabetes: Yes GI Disorders: Yes (IBS, constipation, gastritis, dyspepsia, oral aphthae) Disorders: (UTI) HTN: Yes Hypercholesterolemia: Yes - Surgical History Abdominal Surgery: (bypass) Cardiac Surgery: (CABG) - Suicide/Smoking/Psychosocial Hx Smoking History: Never smoked Have you smoked in the past 12 months: No Information on smoking cessation initiated: No Hx Alcohol Use: No Drug/Substance Use Hx: No Review of Systems - Review of Systems Comments:: 05/19/18 03:20 GENERAL/CONSTITUTIONAL: No fever or chills. No weakness. HEAD, EYES, EARS, NOSE AND THROAT: No change in vision. No ear pain or discharge. No sore throat. CARDIOVASCULAR: No chest pain or shortness of breath RESPIRATORY: No cough, wheezing, or hemoptysis. GASTROINTESTINAL: No nausea, vomiting, diarrhea or constipation. GENITOURINARY: No dysuria, frequency, or change in urination. MUSCULOSKELETAL: No joint or muscle swelling or pain. No neck or back pain. SKIN: No rash NEUROLOGIC: No headache, vertigo, loss of consciousness, or change in strength/ sensation. ENDOCRINE: No increased thirst. No abnormal weight change HEMATOLOGIC/LYMPHATIC: No anemia, easy bleeding, or history of blood clots. ALLERGIC/IMMUNOLOGIC: No hives or skin allergy. *Physical Exam - Vital Signs Last Vital Signs Temp Pulse Resp BP Pulse Ox 97.6 F 81 18 161/76 97 05/19/18 03:05 05/19/18 03:05 05/19/18 03:05 05/19/18 03:05 05/19/18 03:05 - Physical Exam Comments: 05/19/18 03:20 GENERAL: Awake, alert, and fully oriented, in no acute distress HEAD: No signs of trauma, normocephalic, atraumatic EYES: PERRLA, EOMI, sclera anicteric, conjunctiva clear ENT: Auricles normal inspection, hearing grossly normal, nares patent, oropharynx clear without exudates. Moist mucosa NECK: Normal ROM, supple, no lymphadenopathy, JVD, or masses LUNGS: No distress, speaks full sentences, clear to auscultation bilaterally HEART: Regular rate and rhythm, normal S1 and S2, no murmurs, rubs or gallops, peripheral pulses normal and equal bilaterally. ABDOMEN: Soft, nontender, normoactive bowel sounds. No guarding, no rebound. No masses EXTREMITIES: Normal inspection, Normal range of motion, no edema. No clubbing or cyanosis. NEUROLOGICAL: Cranial nerves II through XII grossly intact. Normal speech, no focal sensorimotor deficits SKIN: Warm, Dry, normal turgor, no rashes or lesions noted. ED Treatment Course - LABORATORY CBC & Chemistry Diagram: 05/19/18 02:57 05/19/18 02:57 - RADIOLOGY Radiology Studies Ordered: Category Date Time Status CHEST X-RAY PORTABLE* [RAD] Stat Radiology 05/19/18 02:56 Ordered Medical Decision Making - Medical Decision Making 05/19/18 03:21 Patient is a 78M with history of CAD s/p CABG, DM here today complaining of lab variance, K 8.2. Vital signs stable and normal. EKG shows 1st degree av block (NC 312) with rate of 80. No st elevations/ depressions. Normal t wave morphology. Normal axis. Normal QRS. Prior EKG done on 10/26/17 demonstrates 1st degree av block with NC of 242ms. 05/19/18 03:40 K 5.4, Cr 1.9 BUN 40. Mild SALLY. Patient baseline 1.5-1.9. Will hydrate, discharge back to [facility]. *DC/Admit/Observation/Transfer Diagnosis at time of Disposition: SALLY (acute kidney injury), Hyperkalemia - Discharge Dispostion Disposition: HOME Condition at time of disposition: Good Decision to Admit order: No - Referrals Referrals: Yyaa Rebolledo MD [Primary Care Provider] - - Patient Instructions Printed Discharge Instructions: DI for Hyperkalemia Additional Instructions: Potassium 5.4. Given 1L of fluid. Please return if you have any new, worsening or concerning symptoms. Please follow up with your primary care doctor this week. - Post Discharge Activity
[2018-05-19 03:22] LABS: PROTHROMBIN TIME (PATIENT) 11.3 SEC (9.7-13.0)
[2018-05-19 03:25] VITALS: BP 161/76; PULSE 81; TEMP 97.6; BMI 26.5
[2018-05-19 03:31] LABS: ALBUMIN 3.2 g/dl (3.4-5.0); ANION GAP 6 MMOL/L (8-16); BILIRUBIN,TOTAL 0.2 mg/dL (0.2-1.0); BLOOD UREA NITROGEN 39 mg/dL (7-18); CALCIUM 7.9 mg/dL (8.5-10.1); CHLORIDE 111 mmol/L (98-107); CO2 22 mmol/L (21-32); CREATININE 1.9 mg/dL (0.7-1.3); GLUCOSE,RANDOM 91 mg/dL (74-106); SGPT/ALT 17 U/L (12-78); SODIUM 139 mmol/L (136-145); TOT PROT 6.8 g/dl (6.4-8.2)
[2018-05-19 03:34] LABS: ALK PHOS 47 U/L (45-117)
[2018-05-19 03:35] LABS: MAGNESIUM 1.6 mg/dL (1.8-2.4)
[2018-05-19 03:36] LABS: POTASSIUM 5.4 mmol/L (3.5-5.1); SGOT/AST 16 U/L (15-37)
[2018-05-19] MEDS ORDERED: SODIUM CHLORIDE 1,000 ML IV STA (03:40)
--- NOTE | 2018-05-19 11:51 | EKG ---
Test Reason : Blood Pressure : / mmHG Vent. Rate : 080 BPM Atrial Rate : 080 BPM P-R Int : 312 ms QRS Dur : 090 ms QT Int : 372 ms P-R-T Axes : 075 028 059 degrees QTc Int : 429 ms SINUS RHYTHM WITH 1ST DEGREE A-V BLOCK OTHERWISE NORMAL ECG WHEN COMPARED WITH ECG OF 26-OCT-2017 09:15, ST NO LONGER DEPRESSED IN ANTEROLATERAL LEADS Confirmed by CRISTINA VELASCO, CALVIN ([id number]) on 05/19/2018 11:50:46 AM Referred By: Confirmed By:CALVIN EVANS MD
== END 2018-05-19 05:05 | disposition home or self-care (01) ==
LOC: JER 02:53
PROC: 3E0337Z Introduction of Electrolytic and Water Balance Substance into Peripheral Vein, Percutaneous Approach (ICD-10-PCS; principal; 2018-05-19)
DX: E87.5 Hyperkalemia (principal); S37.009A Unspecified injury of unspecified kidney, initial encounter; E11.9 Type 2 diabetes mellitus without complications; Z95.1 Presence of aortocoronary bypass graft
CPT/HCPCS: 36415; 80053; 82550; 83735; 84484; 85025; 85610; 93005; 93010; 96360; 99282-25; J7030

== ENCOUNTER 2018-06-04 16:15 | Observation (INO) | payer OTHER ==
--- NOTE | 2018-06-04 16:39 | PDOC ---
Attending Attestation - Resident Resident Name: JoliejonathondenisseOsiel - ED Attending Attestation I have performed the following: I have examined & evaluated the patient, The case was reviewed & discussed with the resident, I agree w/resident's findings & plan, Exceptions are as noted - HPI HPI: 06/04/18 17:21 Mr Argueta is a 78 yo M presenting to the ER with a complaint of shortness of breath He has a h/o cardiac arrhythmias, depression, HLD, CAD s/p CABG, Alzheimer's disease, and DM. SOB x 2 days, worsening Likely COPD (h/o heavy tobacco us but discontinued s/p CABG) SOB with exertion, no orthopnea PAST MEDICAL HISTORY: cardiac arrhythmias, depression, HLD, CAD s/p CABG, Alzheimer's disease, and DM PAST SURGICAL HISTORY: CABG - Physicial Exam PE: 06/04/18 17:24 GENERAL: The patient is in no acute distress. HEAD: Normal NECK: Normal range of motion, no JVD LUNGS: Breath sounds equal, clear to auscultation bilaterally. No wheezes, and no crackles. HEART:Regular rate and rhythm, normal S1 and S2 without murmur, rub or gallop. ABDOMEN: Soft, nontender EXTREMITIES: Normal range of motion, (+) edema. NEUROLOGICAL: Cranial nerves II through XII grossly intact. Normal speech. No focal neurological deficits. MUSCULOSKELETAL: Back non-tender to palpation, no CVA tenderness SKIN: Warm, Dry, normal turgor, no rashes or lesions noted. - Medical Decision Making 06/04/18 17:26 78-year-old male presented to emergency department with a complaint of exertional dyspnea. Patient has risk factors for ACS, CHF, COPD. Unlikely bronchitis versus pneumonia. Will do: Labs, EKG, chest x-ray 06/04/18 17:56 EKG: Sinus rhythm, rate of 62 bpm, axis is normal, intervals are normal: First degree AV block (MO interval through 6 MS) (, QRS 84 MS, QTC 426 MS, no ST elevations. T wave inversion in lead I, a VL, V5, V6 Signed out to Dr Roberts
--- NOTE | 2018-06-04 16:44 | PDOC ---
History of Present Illness - General Chief Complaint: Shortness of Breath Stated Complaint: SOB - History of Present Illness Initial Comments: The patient is a 78M w/ a history of HTN, Alzheimer Dz, CAD s/p CABG x4, COPD, T2DM who presents from [facility] for evaluation of 2 days of dyspnea, worse with exertion, not positional. He also endorses a nonproductive cough for few weeks w/o change. The patient denies F/C, dizziness, ROMERO, chest pain, abdominal pain. He does endorses chronic diarrhea. He denies any other complaints 06/04/18 16:39 Past History - Past Medical History Allergies/Adverse Reactions: Allergies Allergy/AdvReac Type Severity Reaction Status Date / Time No Known Allergies Allergy Verified 06/04/18 16:54 Home Medications: Ambulatory Orders Aspirin [ASA -] 81 mg PO DAILY 10/25/17 Escitalopram Oxalate [Lexapro -] 10 mg PO DAILY 10/25/17 Glipizide 5 mg PO DAILY 10/25/17 Linagliptin [Tradjenta] 5 mg PO DAILY 10/25/17 Loperamide HCl [Imodium A-D] 2 mg PO DAILY 10/25/17 [place]-3 Fatty Acids [[place]-3] 2,000 mg PO BID 10/25/17 Polyvinyl Alcohol [Artificial Tears] 1 drop OP DAILY 10/25/17 Pravastatin Sodium [Pravachol -] 80 mg PO HS 10/25/17 Ranolazine [Ranexa] 500 mg PO BID 10/25/17 Rivastigmine [Exelon Patch 9.5 mg/24 Hours -] 1 each TD DAILY 10/25/17 Amlodipine Besylate [Norvasc -] 10 mg PO DAILY tablet 10/28/17 Metoprolol Tartrate [Lopressor -] 25 mg PO Q12H tablet 10/28/17 Cholecalciferol (Vitamin D3) [Dialyvite Vitamin D3 Max] 50,000 unit PO WEEKLY Gabapentin [Neurontin -] 100 mg PO HS 06/04/18 Meclizine HCl 25 mg PO PRN PRN 06/04/18 Melatonin [Meladox] 3 mg PO HS 06/04/18 Tamsulosin HCl [Flomax] 0.4 mg PO DAILY 06/04/18 Fluticasone Prop 0.05% Nasal [Flonase -] 1 - 2 spray NS BID 06/05/18 Furosemide [Lasix -] 40 mg PO DAILY tablet 06/06/18 Cardiac Disorders: (pectoris angina, arrhythmias, CAD) Dementia: Yes Diabetes: Yes GI Disorders: Yes (IBS, constipation, gastritis, dyspepsia, oral aphthae) Disorders: (UTI) HTN: Yes Hypercholesterolemia: Yes - Surgical History Abdominal Surgery: (bypass) Cardiac Surgery: (CABG) - Suicide/Smoking/Psychosocial Hx Smoking History: Never smoked Have you smoked in the past 12 months: No Hx Alcohol Use: No Drug/Substance Use Hx: No Review of Systems - Review of Systems Able to Perform ROS?: Yes Comments:: GENERAL/CONSTITUTIONAL: No fever or chills. HEAD, EYES, EARS, NOSE AND THROAT: No change in vision. No ear pain or discharge. No sore throat. CARDIOVASCULAR: No chest pain RESPIRATORY: +cough; -wheeze GASTROINTESTINAL: No nausea, vomiting, diarrhea or constipation GENITOURINARY: No dysuria, frequency, or change in urination SKIN: No rash NEUROLOGIC: No headache, loss of consciousness, or change in strength/sensation ENDOCRINE: No increased thirst. No abnormal weight change HEMATOLOGIC/LYMPHATIC: No anemia, easy bleeding, or history of blood clots ALLERGIC/IMMUNOLOGIC: No hives or skin allergy 06/04/18 16:56 Is the patient limited Yakut proficient: No *Physical Exam - Physical Exam Comments: GENERAL: Awake, alert, and fully oriented, in no acute distress HEAD: No signs of trauma, normocephalic, atraumatic EYES: PERRL, EOMI, sclera anicteric, conjunctiva clear ENT: Hearing grossly normal, nares patent, oropharynx clear without exudates. Moist mucosa NECK: Normal ROM, supple, no lymphadenopathy LUNGS: B/l lower crackles; No distress, speaks full sentences, clear to auscultation bilaterally HEART: Regular rate and rhythm, normal S1 and S2, no murmurs appreciated, peripheral pulses normal and equal bilaterally ABDOMEN: Soft, nontender, normoactive bowel sounds. No guarding, no rebound. No masses EXTREMITIES : 1+ BLE edema; Normal inspection, Normal range of motion. No clubbing or cyanosis NEUROLOGICAL: Cranial nerves II through XII grossly intact. Normal speech, normal gait, no focal sensorimotory deficits SKIN: Warm, Dry, normal turgor, no rashes or lesions noted 06/04/18 16:56 ED Treatment Course - LABORATORY CBC & Chemistry Diagram: 06/04/18 17:50 06/06/18 10:55 Medical Decision Making - Medical Decision Making The patient is a 78M w/ a history of HTN, T2DM, Alzheimer's Dz who presents from [facility] the [place] for evaluation of dizziness with standing ED Course CMP, CBC, Cardiac enzymes, Coags ECG CXR Rectal temp 98.3 Hyperkalemia 6.2 ECG w/o evidence of T-wave abn, no signs of acute ischemic changes Trop I neg BNP 3400 06/04/18 16:57 Insulin 10u, Dextrose 10% 500cc, Ca gluconate 1g Plan for admission for hyperkalemia Dispo: Admit 06/04/18 19:12 *DC/Admit/Observation/Transfer Diagnosis at time of Disposition: Hyperkalemia DM type 2 (diabetes mellitus, type 2) Qualifiers: 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
[2018-06-04 18:01] LABS: HEMATOCRIT 27.9 % (35.4-49); HEMOGLOBIN 9.2 GM/dL (11.7-16.9); MCH 29.3 pg (25.7-33.7); MCHC 33.1 g/dl (32.0-35.9); MEAN CELL VOLUME 88.4 fl (80-96); MEAN PLT VOLUME 8.8 fl (7.5-11.1); PLATELET COUNT 179 K/MM3 (134-434); RBC 3.16 M/mm3 (4.00-5.60); RDW 14.9 % (11.9-15.9); WHITE BLOOD COUNT 7.3 K/mm3 (4.0-10.0)
[2018-06-04 18:15] LABS: INR 1.03 (0.83-1.09); PROTHROMBIN TIME (PATIENT) 12.1 SEC (9.7-13.0)
[2018-06-04 18:39] LABS: ALBUMIN 2.9 g/dl (3.4-5.0); ALK PHOS 65 U/L (45-117); ANION GAP 9 MMOL/L (8-16); BILIRUBIN,TOTAL 0.3 mg/dL (0.2-1); BLOOD UREA NITROGEN 39 mg/dL (7-18); CALCIUM 8.6 mg/dL (8.5-10.1); CHLORIDE 116 mmol/L (98-107); CO2 17 mmol/L (21-32); CREATININE 1.5 mg/dL (0.55-1.3); GLUCOSE,RANDOM 65 mg/dL (74-106); SGOT/AST 7 U/L (15-37); SGPT/ALT 19 U/L (13-61); SODIUM 142 mmol/L (136-145); TOT PROT 6.8 g/dl (6.4-8.2)
[2018-06-04 18:40] LABS: POTASSIUM 6.2 mmol/L (3.5-5.1)
[2018-06-04 18:45] LABS: URINE APPEARANCE SLCLOUDY; URINE BILIRUBIN NEGATIVE (<2.0 mg/dL); URINE COLOR YELLOW; URINE GLUCOSE (UA) NEGATIVE (NEGATIVE); URINE KETONE NEGATIVE (NEGATIVE); URINE NITRITE NEGATIVE (NEGATIVE); URINE UROBILINOGEN NEGATIVE mg/dL (0.2-1.0)
[2018-06-04 18:46] LABS: URINE LEUK ESTERASE 3+ (NEGATIVE); URINE PROTEIN 1+ (NEGATIVE)
[2018-06-04] MEDS ORDERED: CALCIUM GLUCONATE 10% - 1,000 MG/10 ML VIAL IVPUSH ONE (18:46)
[2018-06-04] MEDS ORDERED: INSULIN REGULAR HUMAN 100 UNITS/ML *VIAL IVPUSH ONE ×2 (18:46→19:00)
[2018-06-04 18:47] LABS: URINE HYALINE CAST 4 /lpf
[2018-06-04] MEDS ORDERED: DEXTROSE 10%-WATER 500 ML INFUS.BAG IV ONE (18:48)
[2018-06-04] MEDS ORDERED: CALCIUM GLUCONATE 10% - 1,000 MG/10 ML VIAL ONE ×2 (18:55→19:37)
[2018-06-04] MEDS ORDERED: INSULIN NPH 100 UNITS/ML *VIAL ONE (18:56)
[2018-06-04] MEDS ORDERED: DEXTROSE 50%-WATER - 25 GM/50 ML VIAL IVPUSH ONE (19:00)
[2018-06-04] MEDS ORDERED: DEXTROSE 50%-WATER 25 GM/50 ML DISP.SYRIN ONE (19:16)
[2018-06-04] MEDS ORDERED: INSULIN REGULAR HUMAN 100 UNITS/ML *VIAL ONE (19:37)
[2018-06-04] MEDS ORDERED: SODIUM POLYSTYRENE SULFONATE 15 GM/60 ML BOTTLE PO ONE (20:14)
[2018-06-04] MEDS ORDERED: SODIUM POLYSTYRENE SULFONATE 15 GM/60 ML BOTTLE ONE (20:35)
[2018-06-04 22:42] LABS: ALK PHOS 64 U/L (45-117); ANION GAP 6 MMOL/L (8-16); BILIRUBIN,TOTAL 0.3 mg/dL (0.2-1); BLOOD UREA NITROGEN 40 mg/dL (7-18); CALCIUM 8.4 mg/dL (8.5-10.1); CHLORIDE 115 mmol/L (98-107); CO2 20 mmol/L (21-32); CREATININE 1.5 mg/dL (0.55-1.3); GLUCOSE,RANDOM 65 mg/dL (74-106); POTASSIUM 5.5 mmol/L (3.5-5.1); SGOT/AST 13 U/L (15-37); SGPT/ALT 19 U/L (13-61); SODIUM 141 mmol/L (136-145); TOT PROT 6.9 g/dl (6.4-8.2)
[2018-06-05] MEDS ORDERED: CEFTRIAXONE 1 GM in DEXTROSE 5%-WATER - 50 ML IVPB ONE (00:06)
[2018-06-05] MEDS ORDERED: MECLIZINE HCL 25 MG TABLET (FP) PO PRN (00:22)
[2018-06-05] MEDS ORDERED: FUROSEMIDE 40 MG/4 ML INJECTABLE VIAL IVPUSH ONE (00:31)
[2018-06-05] MEDS ORDERED: CEFTRIAXONE 1 GM/50 ML BAG ONE (00:41)
[2018-06-05] MEDS ORDERED: FUROSEMIDE 40 MG/4 ML INJECTABLE VIAL ONE (00:41)
--- NOTE | 2018-06-05 00:48 | HP ---
CHIEF COMPLAINT: Shortness of breath PCP: Georgie Blackmon HISTORY OF PRESENT ILLNESS: 78M with PMH listed below, extensive cardiac history including CAD s/p CABG x4, eventually requiring stents, HTN, HLD, admitted for a fall in October of this year, had an echo done which was suggestive of impaired LV relaxation, presents to the hospital with a chief complaint of shortness of breath. Patient and his son were present and they endorse worsening exercise tolerance. He states even minor movement is starting to cause him to become short of breath. This caused him to stop smoking but he still feels it is getting worse. He also endorses orthopnea. He was found to have hyperkalemia in the ED on laboratory assessment and was treated. Has had hyperkalemia in the past, was seen by Dr. Golden, and was attributed to ARB use. He was also had a renal workup. Patient also had BNP finding of 3475 today. He denies a history of CHF or a "weak heart" but he did have an echo in October of this year and was indicative of impaired left ventricular relaxation. He denies nausea vomiting fever chills chest pain or symptoms. He has occasional diarrhea treated with loperamide. ER course was notable for: (1)CXR (2)Labs (3)Treated for hyperkalemia with insulin D50 calcium and kayexolate Recent Travel:Denies PAST MEDICAL HISTORY: HTN, HLD, DM2, CAD, Stable angina, diastolic CHF, anemia of chronic disease, chronic kidney disease, vertigo, dementia, BPH, depression PAST SURGICAL HISTORY: CABG (Quadruple bypass), s/p stents Social History: Smoking:Denies Alcohol:Denies Drugs: Denies Family History:Cant remember Allergies No Known Allergies Allergy (Verified 06/04/18 16:54) HOME MEDICATIONS: Home Medications Medication Instructions Recorded Aspirin [ASA -] 81 mg PO DAILY 10/25/17 Escitalopram Oxalate [Lexapro -] 10 mg PO DAILY 10/25/17 Fluticasone Nasal Glipizide 5 mg PO DAILY 10/25/17 Linagliptin [Tradjenta] 5 mg PO DAILY 10/25/17 Loperamide HCl [Imodium A-D] 2 mg PO DAILY 10/25/17 [place]-3 Fatty Acids [[place]-3] 2,000 mg PO BID 10/25/17 Polyvinyl Alcohol [Artificial 1 drop OP DAILY 10/25/17 Tears] Pravastatin Sodium [Pravachol -] 80 mg PO HS 10/25/17 Ranolazine [Ranexa] 500 mg PO BID 10/25/17 Rivastigmine [Exelon Patch 9.5 1 each TD DAILY 10/25/17 mg/24 Hours -] Amlodipine Besylate [Norvasc -] 10 mg PO DAILY tablet 10/28/17 Metoprolol Tartrate [Lopressor -] 25 mg PO Q12H tablet 10/28/17 Cholecalciferol (Vitamin D3) 50,000 unit PO WEEKLY 06/04/18 [Dialyvite Vitamin D3 Max] Gabapentin [Neurontin -] 100 mg PO HS 06/04/18 Meclizine HCl 25 mg PO PRN PRN 06/04/18 Melatonin [Meladox] 3 mg PO HS 06/04/18 Tamsulosin HCl [Flomax] 0.4 mg PO DAILY 06/04/18 REVIEW OF SYSTEMS CONSTITUTIONAL: Absent: fever, chills, diaphoresis, generalized weakness, malaise, loss of appetite, weight change HEENT: Absent: rhinorrhea, nasal congestion, throat pain, throat swelling, difficulty swallowing, mouth swelling, ear pain, eye pain, visual changes CARDIOVASCULAR: Absent: chest pain, syncope, palpitations, irregular heart rate, lightheadedness , peripheral edema RESPIRATORY: Absent: cough, wheezing, stridor, hemoptysis Present:shortness of breath, dyspnea with exertion, orthopnea GASTROINTESTINAL: Absent: abdominal pain, abdominal distension, nausea, vomiting, constipation, melena, hematochezia Present: occasional diarrhea GENITOURINARY: Absent: dysuria, frequency, urgency, hesitancy, hematuria, flank pain, genital pain MUSCULOSKELETAL: Absent: myalgia, arthralgia, joint swelling, back pain, neck pain SKIN: Absent: rash, itching, pallor HEMATOLOGIC/IMMUNOLOGIC: Absent: easy bleeding, easy bruising, lymphadenopathy, frequent infections ENDOCRINE: Absent: unexplained weight gain, unexplained weight loss, heat intolerance, cold intolerance NEUROLOGIC: Absent: headache, focal weakness or paresthesias, dizziness, unsteady gait, seizure, mental status changes, bladder or bowel incontinence PSYCHIATRIC: Absent: anxiety, suicidal or homicidal ideation, hallucinations. Present: depression PHYSICAL EXAMINATION Vital Signs - 24 hr 0906/04/18 06/04/18 16:15 17:15 17:23 Temperature 97.5 F L 98.3 F Pulse Rate 65 Respiratory 16 Rate Blood Pressure 137/63 O2 Sat by Pulse 99 96 Oximetry (%) GENERAL: Awake, alert, and in no acute distress. answers questions appropriately HEAD: Normal with no signs of trauma. EYES: extraocular movements intact NECK: Normal range of motion, supple without JVD LUNGS:bilateral scattered crackles but much more significant on left side HEART: Regular rate and rhythm, normal S1 and S2 without murmur ABDOMEN: Soft, nontender, not distended, normoactive bowel sounds MUSCULOSKELETAL: No CVA tenderness. UPPER EXTREMITIES: warm, well-perfused. No peripheral edema. LOWER EXTREMITIES: warm, well-perfused. No calf tenderness. No peripheral edema. NEUROLOGICAL: Cranial nerves II-XII intact. Normal speech. PSYCHIATRIC: Cooperative. SKIN: Warm, dry, Laboratory Results - last 24 hr 06/04/18 06/04/18 06/04/18 17:50 17:50 17:50 WBC 7.3 RBC 3.16 L Hgb 9.2 L Hct 27.9 L D MCV 88.4 MCH 29.3 MCHC 33.1 RDW 14.9 Plt Count 179 D MPV 8.8 PT with INR INR PTT (Actin FS) 29.7 Sodium 142 Potassium 6.2 H* Chloride 116 H Carbon Dioxide 17 L Anion Gap 9 BUN 39 H Creatinine 1.5 H Creat Clearance w eGFR 45.50 Random Glucose 65 L Calcium 8.6 Total Bilirubin 0.3 AST 7 L ALT 19 Alkaline Phosphatase 65 Creatine Kinase Troponin I B-Natriuretic Peptide Total Protein 6.8 Albumin 2.9 L Urine Color Urine Appearance Urine pH Ur Specific [place] Urine Protein Urine Glucose (UA) Urine Ketones Urine Blood Urine Nitrite Urine Bilirubin Urine Urobilinogen Ur Leukocyte Esterase Urine WBC (Auto) Urine RBC (Auto) Hyaline Casts 06/04/18 06/04/18 06/04/18 17:50 17:50 17:50 WBC RBC Hgb Hct MCV MCH MCHC RDW Plt Count MPV PT with INR 12.10 INR 1.03 PTT (Actin FS) Sodium Potassium Chloride Carbon Dioxide Anion Gap BUN Creatinine Creat Clearance w eGFR Random Glucose Calcium Total Bilirubin AST ALT Alkaline Phosphatase Creatine Kinase 39 Troponin I 0.03 B-Natriuretic Peptide 3475.4 H Total Protein Albumin Urine Color Urine Appearance Urine pH Ur Specific [place] Urine Protein Urine Glucose (UA) Urine Ketones Urine Blood Urine Nitrite Urine Bilirubin Urine Urobilinogen Ur Leukocyte Esterase Urine WBC (Auto) Urine RBC (Auto) Hyaline Casts 06/04/18 06/04/18 18:25 22:07 WBC RBC Hgb Hct MCV MCH MCHC RDW Plt Count MPV PT with INR INR PTT (Actin FS) Sodium 141 Potassium 5.5 H Chloride 115 H Carbon Dioxide 20 L Anion Gap 6 L BUN 40 H Creatinine 1.5 H Creat Clearance w eGFR 45.50 Random Glucose 65 L Calcium 8.4 L Total Bilirubin 0.3 AST 13 L ALT 19 Alkaline Phosphatase 64 Creatine Kinase Troponin I B-Natriuretic Peptide Total Protein 6.9 Albumin 3.0 L Urine Color Yellow Urine Appearance Slcloudy Urine pH 5.0 Ur Specific [place] 1.016 Urine Protein 1+ H Urine Glucose (UA) Negative Urine Ketones Negative Urine Blood Negative Urine Nitrite Negative Urine Bilirubin Negative Urine Urobilinogen Negative Ur Leukocyte Esterase 3+ H D Urine WBC (Auto) 30 Urine RBC (Auto) None Hyaline Casts 4 EKG: Sinus rhythm no acute st-t wave changes CXR: Mild pulmonary vascular congestion Echo: 10/2017- impaired LV relaxation Home Medications Medication Instructions Recorded Aspirin [ASA -] 81 mg PO DAILY 10/25/17 Escitalopram Oxalate [Lexapro -] 10 mg PO DAILY 10/25/17 Fluticasone Nasal 1 spray NS BID PRN 10/25/17 Glipizide 5 mg PO DAILY 10/25/17 Linagliptin [Tradjenta] 5 mg PO DAILY 10/25/17 Loperamide HCl [Imodium A-D] 2 mg PO DAILY 10/25/17 [place]-3 Fatty Acids [[place]-3] 2,000 mg PO BID 10/25/17 Polyvinyl Alcohol [Artificial 1 drop OP DAILY 10/25/17 Tears] Pravastatin Sodium [Pravachol -] 80 mg PO HS 10/25/17 Ranolazine [Ranexa] 500 mg PO BID 10/25/17 Rivastigmine [Exelon Patch 9.5 1 each TD DAILY 10/25/17 mg/24 Hours -] Amlodipine Besylate [Norvasc -] 10 mg PO DAILY tablet 10/28/17 Metoprolol Tartrate [Lopressor -] 25 mg PO Q12H tablet 10/28/17 Cholecalciferol (Vitamin D3) 50,000 unit PO WEEKLY 06/04/18 [Dialyvite Vitamin D3 Max] Gabapentin [Neurontin -] 100 mg PO HS 06/04/18 Meclizine HCl 25 mg PO PRN PRN 06/04/18 Melatonin [Meladox] 3 mg PO HS 06/04/18 Tamsulosin HCl [Flomax] 0.4 mg PO DAILY 06/04/18 ASSESSMENT/PLAN: 78M with extensive medical history presents to the ER with shortness of breath likely in CHF exacerbation found to have hyperkalemia. Acute exacerbation of diastolic CHF:elevated BNP and worsening shortness of breath Place on observation Lasix 40mg IV once Telemetry monitoring cardiology consult restart beta juan daily weights strict I/Os Hyperkalemia in the setting of CKD stage 3A: Asymptomatic. No EKG changes Patient used to be to ARB and was stopped Treated with Insulin D50 kayexolate and calcium Consult nephrology Possible UTI: Asymptomatic LE3+ WBC 30 will give one dose ceftriaxone CAD s/p quadruple bypass and stents: Restart aspirin restart metoprolol BP control Cardiology consult HTN: Restart Norvasc restart metoprolol HLD: Restart Statin on formulary Stable angina: Restart Ranexa DM: Hold oral hypoglycemic ISS TIDAC BGM ACHS restart Gabapentin for neuropathy CKD stage 3A: Creatinine seems to be at baseline Will consult nephrology for hyperkalemia in the setting of CKD Anemia likely of chronic disease secondary to chronic renal failure: Trend H/H BPH: restart flomax Vertigo: Restart Meclizine PRN depression restart Lexapro 10mg po daily Dementia FEN: No IVF Hyperkalemia: see above diabetic/sodium controlled diet PPx: SCDs/HSQ No GI PPx indicated PT consult Case discussed with attending Dr. Mack Visit type - Emergency Visit Emergency Visit: Yes ED Registration Date: 06/04/18 Care time: The patient presented to the Emergency Department on the above date and was hospitalized for further evaluation of their emergent condition. - New Patient This patient is new to me today: Yes Date on this admission: 06/05/18 - Critical Care Critical Care patient: No Hospitalist Screening - Colonoscopy Questionnaire Colonoscopy Questionnaire: Colonoscopy Questionnaire - Patient: 50 - 75 years old and never had a screening colonoscopy: No History of colon or rectal polyps, or CA: No History of IBD, Crohn's disease or UC: No History of abdominal radiation therapy as a child: No - Relative: 1 with colon or rectal CA, or polyps at age 60 or younger: No Colon or rectal CA diagnosed at age 45 or younger: No Multiple relatives with colon or rectal CA: No - Outcome: Screening Result: Negative Screen
--- NOTE | 2018-06-05 05:37 | PN ---
Teaching Attending Note Name of Resident: Isac Sommer ATTENDING PHYSICIAN STATEMENT I saw and evaluated the patient. I reviewed the resident's note and discussed the case with the resident. I agree with the resident's findings and plan as documented. 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
[2018-06-05] MEDS: INSULIN SLIDING SCALE (NOVOLOG) 1 VIAL SQ SCH ×3 (06:51→18:00)
[2018-06-05] MEDS: HEPARIN NA (PORCINE) 5,000 UNITS/ML 1ML VIAL SQ SCH ×3 (06:51→23:00)
--- NOTE | 2018-06-05 11:44 | CON.CARD ---
Consult Consult Specialty:: Cardiology Referred by:: Hospitalist Reason for Consultation:: Cardiac evaluation - History of Present Illness Chief Complaint: SOB History of Present Illness: Patient is a 78 year old male with underlying history of HTN, dementia ( Alzheimer), CAD s/p CABG, COPD and type 2 DM who presents from [facility] with dyspnea worse on exertion and nonproductive cough. He denies paroxysmal nocturnal dyspnea or orthopnea. Denies fever or chills. Denies nausea, vomiting, diarrhea or abdominal pain. Denies headache or lightheadedness. 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 Cardio/Vascular: Yes: HTN, Hyperlipdemia Psych: Yes: Depression Endocrine: Yes: Diabetes Mellitus - Alcohol/Substance Use Hx Alcohol Use: No - Smoking History Smoking history: Never smoked Have you smoked in the past 12 months: No Home Medications - Allergies Allergies/Adverse Reactions: Allergies Allergy/AdvReac Type Severity Reaction Status Date / Time No Known Allergies Allergy Verified 06/04/18 16:54 - Home Medications Home Medications: Ambulatory Orders Aspirin [ASA -] 81 mg PO DAILY 10/25/17 Escitalopram Oxalate [Lexapro -] 10 mg PO DAILY 10/25/17 Glipizide 5 mg PO DAILY 10/25/17 Linagliptin [Tradjenta] 5 mg PO DAILY 10/25/17 Loperamide HCl [Imodium A-D] 2 mg PO DAILY 10/25/17 [place]-3 Fatty Acids [[place]-3] 2,000 mg PO BID 10/25/17 Polyvinyl Alcohol [Artificial Tears] 1 drop OP DAILY 10/25/17 Pravastatin Sodium [Pravachol -] 80 mg PO HS 10/25/17 Ranolazine [Ranexa] 500 mg PO BID 10/25/17 Rivastigmine [Exelon Patch 9.5 mg/24 Hours -] 1 each TD DAILY 10/25/17 Amlodipine Besylate [Norvasc -] 10 mg PO DAILY tablet 10/28/17 Metoprolol Tartrate [Lopressor -] 25 mg PO Q12H tablet 10/28/17 Cholecalciferol (Vitamin D3) [Dialyvite Vitamin D3 Max] 50,000 unit PO WEEKLY Gabapentin [Neurontin -] 100 mg PO HS 06/04/18 Meclizine HCl 25 mg PO PRN PRN 06/04/18 Melatonin [Meladox] 3 mg PO HS 06/04/18 Tamsulosin HCl [Flomax] 0.4 mg PO DAILY 06/04/18 Fluticasone Prop 0.05% Nasal [Flonase -] 1 - 2 spray NS BID 06/05/18 Furosemide [Lasix -] 40 mg PO DAILY tablet 06/06/18 Family Disease History - Family Disease History Family History: Unable to Obtain Review of Systems Unable to obtain ROS, reason: Unable to obtain Vital Signs: Vital Signs Temperature 98.0 F 06/05/18 03:53 Pulse Rate 70 06/05/18 03:53 Respiratory Rate 18 06/05/18 04:08 Blood Pressure 152/88 06/05/18 03:53 O2 Sat by Pulse Oximetry (%) 98 06/05/18 04:08 Neck: Yes: Supple Respiratory: Yes: Diminished Gastrointestinal: Yes: Normal Bowel Sounds, Soft. No: Tenderness Cardiovascular: Yes: Regular Rate and Rhythm JVD: No Carotid Bruit: No PMI: Non-Displaced Heart Sounds: Yes: S1, S2. No: Gallop Edema: No - Other Data Labs, Other Data: CBC, BMP 06/04/18 17:50 06/04/18 22:07 INR, PTT INR 1.03 (0.83-1.09) 06/04/18 17:50 Troponin, BNP 06/04/18 06/04/18 17:50 17:50 Troponin I 0.03 B-Natriuretic Peptide 3475.4 H Sinus rhythm with 1st degree AV block Imaging - Results Chest X-ray: Report Reviewed (Mild cardiomegaly and pulmonary venous congestion) EKG: Report Reviewed Problem List - Problems (1) CAD (coronary artery disease) Code(s): I25.10 - ATHSCL HEART DISEASE OF [place] CORONARY ARTERY W/O ANG PCTRS (2) Hx of CABG Code(s): Z95.1 - PRESENCE OF AORTOCORONARY BYPASS GRAFT (3) HTN (hypertension) Code(s): I10 - ESSENTIAL (PRIMARY) HYPERTENSION Qualifiers: Hypertension type: essential hypertension Qualified Code(s): I10 - Essential (primary) hypertension (4) DM type 2 (diabetes mellitus, type 2) Code(s): E11.9 - TYPE 2 DIABETES MELLITUS WITHOUT COMPLICATIONS Qualifiers: Diabetes mellitus assisted insulin use: unspecified medical terminologist insulin use status Diabetes mellitus complication status: with unspecified complications Qualified Code(s): E11.8 - Type 2 diabetes mellitus with unspecified complications (5) Dementia Code(s): F03.90 - UNSPECIFIED DEMENTIA WITHOUT BEHAVIORAL DISTURBANCE Qualifiers: Dementia type: Alzheimer's disease Alzheimer's disease onset: unspecified onset Dementia behavioral disturbance: with behavioral disturbance Qualified Code(s): G30.9 - Alzheimer's disease, unspecified; F02.81 - Dementia in other diseases classified elsewhere with behavioral disturbance; F02.81 - Dementia in other diseases classified elsewhere with behavioral disturbance; F02.81 - Dementia in other diseases classified elsewhere with behavioral disturbance (6) Hyperkalemia Code(s): E87.5 - HYPERKALEMIA Assessment/Plan 1. Clinical presentation suggests acute on chronic LV diastolic failure 2. CAD s/p CABG, angina 3. HTN 4. DM 5. Alzheimer dementia 6. COPD 7. CKD and hyperkalemia PLAN: 1. Continue present medical therapy - Metoprolol, Amlodipine, Ranexa, ASA, Pravastatin 2. Monitor K and correct. Monitor renal function 3. DM management Further plans are to follow Damon Rodriguez MD
--- NOTE | 2018-06-05 11:45 | PN ---
Physical Exam: SUBJECTIVE: Patient seen and examined Patient is lying in bed comfortably with no acute distress. OBJECTIVE: Vital Signs Temperature 98.0 F 06/05/18 03:53 Pulse Rate 70 06/05/18 03:53 Respiratory Rate 18 06/05/18 04:08 Blood Pressure 152/88 06/05/18 03:53 O2 Sat by Pulse Oximetry (%) 98 06/05/18 04:08 GENERAL: The patient is awake, alert, in no acute distress. HEAD: Normal with no signs of trauma. EYES: PERRL, extraocular movements intact, sclera anicteric, conjunctiva clear. ENT: Ears normal, oropharynx clear without exudates, moist mucous membranes. NECK: Trachea midline, full range of motion, supple. LUNGS: Breath sounds equal, clear to auscultation bilaterally, no wheezes, no crackles, no accessory muscle use. HEART: Regular rate and rhythm, S1, S2 without murmur, rub or gallop. ABDOMEN: Soft, nontender, nondistended, normoactive bowel sounds, no guarding, no rebound, no hepatosplenomegaly, no masses. EXTREMITIES: 2+ pulses, warm, well-perfused, no edema. NEUROLOGICAL: Cranial nerves II through XII grossly intact. Normal speech, gait not observed. PSYCH: Normal mood, normal affect. SKIN: Warm, dry, normal turgor, no rashes or lesions noted CBCD WBC 7.3 K/mm3 (4.0-10.0) 06/04/18 17:50 RBC 3.16 M/mm3 (4.00-5.60) L 06/04/18 17:50 Hgb 9.2 GM/dL (11.7-16.9) L 06/04/18 17:50 Hct 27.9 % (35.4-49) L D 06/04/18 17:50 MCV 88.4 fl (80-96) 06/04/18 17:50 MCHC 33.1 g/dl (32.0-35.9) 06/04/18 17:50 RDW 14.9 % (11.9-15.9) 06/04/18 17:50 Plt Count 179 K/MM3 (134-434) D 06/04/18 17:50 MPV 8.8 fl (7.5-11.1) 06/04/18 17:50 CMP Sodium 141 mmol/L (136-145) 06/04/18 22:07 Potassium 5.5 mmol/L (3.5-5.1) H 06/04/18 22:07 Chloride 115 mmol/L (98-107) H 06/04/18 22:07 Carbon Dioxide 20 mmol/L (21-32) L 06/04/18 22:07 Anion Gap 6 MMOL/L (8-16) L 06/04/18 22:07 BUN 40 mg/dL (7-18) H 06/04/18 22:07 Creatinine 1.5 mg/dL (0.55-1.3) H 06/04/18 22:07 Creat Clearance w eGFR 45.50 (>60) 06/04/18 22:07 Random Glucose 65 mg/dL (74-106) L 06/04/18 22:07 Calcium 8.4 mg/dL (8.5-10.1) L 06/04/18 22:07 Total Bilirubin 0.3 mg/dL (0.2-1) 06/04/18 22:07 AST 13 U/L (15-37) L 06/04/18 22:07 ALT 19 U/L (13-61) 06/04/18 22:07 Alkaline Phosphatase 64 U/L (45-117) 06/04/18 22:07 Total Protein 6.9 g/dl (6.4-8.2) 06/04/18 22:07 Albumin 3.0 g/dl (3.4-5.0) L 06/04/18 22:07 CARDIAC ENZYMES Creatine Kinase 39 IU/L (26-308) 06/04/18 17:50 Troponin I 0.03 ng/ml (0.00-0.05) 06/04/18 17:50 Current Medications Generic Name Dose Route Start Last Admin Trade Name Freq PRN Reason Stop Dose Admin Amlodipine Besylate 10 mg 06/05/18 10:00 Norvasc - PO DAILY [facility] Aspirin 81 mg 06/05/18 10:00 Asa - PO DAILY [facility] Atorvastatin Calcium 20 mg 06/05/18 22:00 Lipitor - PO HS [facility] Escitalopram Oxalate 10 mg 06/05/18 10:00 Lexapro - PO DAILY [facility] Gabapentin 100 mg 06/05/18 22:00 Neurontin - PO HS [facility] Heparin Sodium (Porcine) 5,000 unit 06/05/18 06:00 06/05/18 06:51 Heparin - SQ Not Given TID [facility] Insulin Aspart 1 vial 06/05/18 07:00 06/05/18 06:51 Novolog Vial Sliding Scale - SQ Not Given TIDAC [facility] Protocol Meclizine HCl 25 mg 06/05/18 00:22 Antivert - PO Q12H PRN [facility]ERTIGO Metoprolol Tartrate 25 mg 06/05/18 10:00 Lopressor - PO BID [facility] Ranolazine 500 mg 06/05/18 10:00 Ranexa - PO BID [facility] Rivastigmine 1 each 06/05/18 10:00 Exelon Patch 9.5 Mg/24 Hours - TD DAILY [facility] Tamsulosin HCl 0.4 mg 06/05/18 08:30 Flomax - PO DAILY@0830 [facility] Home Medications Medication Instructions Recorded Aspirin [ASA -] 81 mg PO DAILY 10/25/17 Escitalopram Oxalate [Lexapro -] 10 mg PO DAILY 10/25/17 Glipizide 5 mg PO DAILY 10/25/17 Linagliptin [Tradjenta] 5 mg PO DAILY 10/25/17 Loperamide HCl [Imodium A-D] 2 mg PO DAILY 10/25/17 [place]-3 Fatty Acids [[place]-3] 2,000 mg PO BID 10/25/17 Polyvinyl Alcohol [Artificial 1 drop OP DAILY 10/25/17 Tears] Pravastatin Sodium [Pravachol -] 80 mg PO HS 10/25/17 Ranolazine [Ranexa] 500 mg PO BID 10/25/17 Rivastigmine [Exelon Patch 9.5 1 each TD DAILY 10/25/17 mg/24 Hours -] Amlodipine Besylate [Norvasc -] 10 mg PO DAILY tablet 10/28/17 Metoprolol Tartrate [Lopressor -] 25 mg PO Q12H tablet 10/28/17 Cholecalciferol (Vitamin D3) 50,000 unit PO WEEKLY 06/04/18 [Dialyvite Vitamin D3 Max] Gabapentin [Neurontin -] 100 mg PO HS 06/04/18 Meclizine HCl 25 mg PO PRN PRN 06/04/18 Melatonin [Meladox] 3 mg PO HS 06/04/18 Tamsulosin HCl [Flomax] 0.4 mg PO DAILY 06/04/18 Fluticasone Prop 0.05% Nasal 1 - 2 spray NS BID 06/05/18 [Flonase -] ASSESSMENT/PLAN: 78M with extensive medical history presents to the ER with shortness of breath likely in CHF exacerbation found to have hyperkalemia. #Acute exacerbation of diastolic CHF:elevated BNP with worsening shortness of breath , was on lasix 40mg IV, but patient pulled his line since was agitated , given 60mg po lasix x 1 dose. #Hyperkalemia in the setting of CKD stage 3A: improved #Possible UTI: Asymptomatic LE3+ WBC 30, s/p one dose ceftriaxone #CAD s/p quadruple bypass and stents: on aspirin, metoprolol, statin continue home meds #HTN: continue Norvasc, metoprolol #HLD: continue Statin #Stable angina: continue Ranexa #DM: SS with coverage, Hold oral hypoglycemic # Peripheral neuropathy continue Gabapentin #CKD stage 3A: Creatinine is at baseline #Anemia likely of chronic disease secondary to chronic renal failure: monitor H/ H #BPH: continue flomax #Vertigo: continue Meclizine #depression: continue lexapro 10mg po daily #Hx of Dementia diabetic/sodium controlled diet PPx:SCDs/HSQ Visit type - Emergency Visit Emergency Visit: Yes ED Registration Date: 06/04/18 Care time: The patient presented to the Emergency Department on the above date and was hospitalized for further evaluation of their emergent condition. - New Patient This patient is new to me today: Yes Date on this admission: 06/05/18 - Critical Care Critical Care patient: No - Discharge Referral Referred to [facility] Med P.C.: No
[2018-06-05] MEDS: ESCITALOPRAM OXALATE 10 MG TABLET (FP) PO SCH (11:55)
[2018-06-05] MEDS: TAMSULOSIN HCL 0.4 MG CAP.ER.24H (FP) PO SCH (11:55)
[2018-06-05] MEDS: amLODIPine BESYLATE 10 MG TABLET (FP) PO SCH (11:55)
[2018-06-05] MEDS: RANOLAZINE E.R. 500 MG TABLET (FP) PO SCH ×2 (11:55→23:00)
[2018-06-05] MEDS: ASPIRIN 81 MG CHEWABLE TABLETS PO SCH (11:56)
[2018-06-05] MEDS: METOPROLOL TARTRATE 25 MG TABLET (FP) PO SCH ×2 (11:57→23:00)
[2018-06-05 14:23] VITALS: BMI 30.2
--- NOTE | 2018-06-05 14:23 | CON.NEP ---
Consult Consult Specialty:: Nephrology Referred by:: dr pope Reason for Consultation:: hyperkalemia and ckd - History of Present Illness Chief Complaint: sob - History Source History Provided By: Patient, Medical Record - Past Medical History ABSTRACT MAKER: Yes: Alzheimer's Cardio/Vascular: Yes: HTN, Hyperlipdemia Psych: Yes: Depression Endocrine: Yes: Diabetes Mellitus - Alcohol/Substance Use Hx Alcohol Use: No - Smoking History Smoking history: Never smoked Have you smoked in the past 12 months: No Home Medications - Allergies Allergies/Adverse Reactions: Allergies Allergy/AdvReac Type Severity Reaction Status Date / Time No Known Allergies Allergy Verified 06/04/18 16:54 - Home Medications Home Medications: Ambulatory Orders Aspirin [ASA -] 81 mg PO DAILY 10/25/17 Escitalopram Oxalate [Lexapro -] 10 mg PO DAILY 10/25/17 Glipizide 5 mg PO DAILY 10/25/17 Linagliptin [Tradjenta] 5 mg PO DAILY 10/25/17 Loperamide HCl [Imodium A-D] 2 mg PO DAILY 10/25/17 [place]-3 Fatty Acids [[place]-3] 2,000 mg PO BID 10/25/17 Polyvinyl Alcohol [Artificial Tears] 1 drop OP DAILY 10/25/17 Pravastatin Sodium [Pravachol -] 80 mg PO HS 10/25/17 Ranolazine [Ranexa] 500 mg PO BID 10/25/17 Rivastigmine [Exelon Patch 9.5 mg/24 Hours -] 1 each TD DAILY 10/25/17 Amlodipine Besylate [Norvasc -] 10 mg PO DAILY tablet 10/28/17 Metoprolol Tartrate [Lopressor -] 25 mg PO Q12H tablet 10/28/17 Cholecalciferol (Vitamin D3) [Dialyvite Vitamin D3 Max] 50,000 unit PO WEEKLY Gabapentin [Neurontin -] 100 mg PO HS 06/04/18 Meclizine HCl 25 mg PO PRN PRN 06/04/18 Melatonin [Meladox] 3 mg PO HS 06/04/18 Tamsulosin HCl [Flomax] 0.4 mg PO DAILY 06/04/18 Fluticasone Prop 0.05% Nasal [Flonase -] 1 - 2 spray NS BID 06/05/18 Nephrology Consult - Height Height: 5 ft 3 in - Weight Weight: 170 lb 8 oz - BMI Body Mass Index (BMI): 30.2 - Lab Results CBC,BMP: CBC, BMP 06/04/18 17:50 06/04/18 22:07 Anion Gap: Anion Gap Anion Gap 6 MMOL/L (8-16) L 06/04/18 22:07 - Physical Examination Vital Signs: Vital Signs Temperature 98.0 F 06/05/18 03:53 Pulse Rate 70 06/05/18 03:53 Respiratory Rate 18 06/05/18 04:08 Blood Pressure 152/88 06/05/18 03:53 O2 Sat by Pulse Oximetry (%) 98 06/05/18 04:08 Assessment/Plan hyperkalemia in setting of acute sob/chf underlying ckd renal function is at baseline
[2018-06-05] MEDS: RIVASTIGMINE 9.5 MG/24 HOURS TRANSDERMAL PATCH TD SCH (17:03)
[2018-06-05] MEDS ORDERED: FUROSEMIDE 40 MG/4 ML INJECTABLE VIAL IVPUSH SCH (17:30)
[2018-06-05] MEDS ORDERED: PT OWN MED DRAWER 7, Y5N ONE (18:02)
[2018-06-05] MEDS ORDERED: FUROSEMIDE 20 MG TABLET (FP) PO ONE ×2 (18:15→23:45)
[2018-06-05] MEDS ORDERED: ATORVASTATIN CA 20 MG TABLET (FP) PO SCH (22:00)
[2018-06-05] MEDS ORDERED: GABAPENTIN 100 MG CAPSULE (FP) PO SCH (22:00)
--- NOTE | 2018-06-05 23:18 | EKG ---
Test Reason : Blood Pressure : / mmHG Vent. Rate : 062 BPM Atrial Rate : 062 BPM P-R Int : 306 ms QRS Dur : 084 ms QT Int : 420 ms P-R-T Axes : 065 019 126 degrees QTc Int : 426 ms SINUS RHYTHM WITH 1ST DEGREE A-V BLOCK WITH OCCASIONAL PREMATURE VENTRICULAR COMPLEXES ABNORMAL ECG WHEN COMPARED WITH ECG OF 19-MAY-2018 03:06, PREMATURE VENTRICULAR COMPLEXES ARE NOW PRESENT T WAVE INVERSION NOW EVIDENT IN LATERAL LEADS Confirmed by ROCIO MCADAMS MD ([id number]) on 06/05/2018 11:18:27 PM Referred By: Confirmed By:ROCIO MCADAMS MD
[2018-06-06] MEDS: HEPARIN NA (PORCINE) 5,000 UNITS/ML 1ML VIAL SQ SCH ×2 (06:34→15:37)
[2018-06-06] MEDS: INSULIN SLIDING SCALE (NOVOLOG) 1 VIAL SQ SCH ×2 (06:35→12:27)
[2018-06-06] MEDS ORDERED: PT OWN MED DRAWER 7, Y5N ONE (09:53)
[2018-06-06] MEDS: METOPROLOL TARTRATE 25 MG TABLET (FP) PO SCH (09:56)
[2018-06-06] MEDS: amLODIPine BESYLATE 10 MG TABLET (FP) PO SCH (09:56)
[2018-06-06] MEDS: RANOLAZINE E.R. 500 MG TABLET (FP) PO SCH (09:56)
[2018-06-06] MEDS: TAMSULOSIN HCL 0.4 MG CAP.ER.24H (FP) PO SCH (09:56)
[2018-06-06] MEDS: ASPIRIN 81 MG CHEWABLE TABLETS PO SCH (09:56)
[2018-06-06] MEDS: ESCITALOPRAM OXALATE 10 MG TABLET (FP) PO SCH (09:56)
[2018-06-06] MEDS: RIVASTIGMINE 9.5 MG/24 HOURS TRANSDERMAL PATCH TD SCH (09:57)
--- NOTE | 2018-06-06 10:30 | DS ---
Physical Exam: SUBJECTIVE: Patient seen and examined at bedside this morning, resting comfortably in bed. No acute distress. Denies any complaints of fevers, chills, chest pain, palpitations, shortness of breath, cough, wheezing, abdominal pain, nausea, vomiting, diarrhea. OBJECTIVE: Vital Signs Period Temp Pulse Resp BP Sys/Reynoso Pulse Ox Last 24 Hr 98.1 F-98.8 F 70-77 18-20 141-155/57-70 98 PHYSICAL EXAM GENERAL: The patient is awake, alert, and fully oriented, in no acute distress. HEAD: Normal with no signs of trauma. EYES: PERRL, extraocular movements intact, sclera anicteric. ENT: Oropharynx clear without exudates. Moist mucous membranes. NECK: Supple without lymphadenopathy. LUNGS: Breath sounds equal, clear to auscultation bilaterally. No wheezes, no crackles, no accessory muscle use. HEART: Regular rate and rhythm, S1, S2 without murmur, rub or gallop. ABDOMEN: Soft, nontender, nondistended, normoactive bowel sounds, no guarding, no rebound. EXTREMITIES: 2+ pulses radial and dorsalis pedis b/l. Warm, well perfused. NEUROLOGICAL: Cranial nerves II through XII grossly intact. Normal speech. PSYCH: Normal mood, normal affect. SKIN: Warm, dry. LABS HOSPITAL COURSE: Date of Admission:06/04/18 Date of Discharge: 06/06/18 Patient is a 78 year old male with history of CAD, HTN, HLD, DM, stable angina, HFpEF, CKD, vertigo, BPH, depression, presented with complaint of SOB. Chest xray showed cardiomegaly, and mild pulmonary congestion. EKG showed sinus rhythm with first degree block and occasional PVCs. Patient was given Lasix. He was hyperkalemic to 6.2 and was given Insulin, D50, kayexolate, and calcium gluconate. Potassium decreased to 4.6. Nephrology consult discussed renal function at baseline. US showed leukocyte esterase 3+ and 30 WBC, treated with 1 dose ceftriaxone IV. Home medications were resumed. Patient admits improvement of shortness of breath. Discharged to [facility], resuming home medications, to follow up with PCP, client evaluator, and copy preparer within one week of discharge. Minutes to complete discharge: 45 Discharge Summary Reason For Visit: SOB; TYPE II DIABETES MELLITUS; HYPERKALEMIA Current Active Problems DM type 2 (diabetes mellitus, type 2) (Acute) Hyperkalemia (Acute) Condition: Improved - Instructions Diet, Activity, Other Instructions: You were admitted to the hospital with shortness of breath. You were treated with intravenous medication to remove the fluid from your lungs. Your potassium was found to be elevated, and resolved with medication. Your urine showed an infection, and you were treated with intravenous antibiotics. Continue taking your home medications as directed. It is important that you follow up with your primary care physician within one week of discharge. It is recommended that follow up with the client evaluator Dr. Jennifer Jose within one week of discharge. It is also recommended that you follow up with the copy preparer (kidney doctor) Dr. Golden within one week of discharge Please return to the nearest Emergency Department if you experience any fevers, chills, worsening shortness of breath, chest pain, palpitations, lightheadedness , loss of consciousness. Referrals: Damon Rodriguez MD [Staff Physician] - Doreen Golden MD [Staff Physician] - Disposition: CARE HOME FACILITY - Home Medications Comprehensive Discharge Medication List: Ambulatory Orders Aspirin [ASA -] 81 mg PO DAILY 10/25/17 Escitalopram Oxalate [Lexapro -] 10 mg PO DAILY 10/25/17 Glipizide 5 mg PO DAILY 10/25/17 Linagliptin [Tradjenta] 5 mg PO DAILY 10/25/17 Loperamide HCl [Imodium A-D] 2 mg PO DAILY 10/25/17 [place]-3 Fatty Acids [[place]-3] 2,000 mg PO BID 10/25/17 Polyvinyl Alcohol [Artificial Tears] 1 drop OP DAILY 10/25/17 Pravastatin Sodium [Pravachol -] 80 mg PO HS 10/25/17 Ranolazine [Ranexa] 500 mg PO BID 10/25/17 Rivastigmine [Exelon Patch 9.5 mg/24 Hours -] 1 each TD DAILY 10/25/17 Amlodipine Besylate [Norvasc -] 10 mg PO DAILY tablet 10/28/17 Metoprolol Tartrate [Lopressor -] 25 mg PO Q12H tablet 10/28/17 Cholecalciferol (Vitamin D3) [Dialyvite Vitamin D3 Max] 50,000 unit PO WEEKLY Gabapentin [Neurontin -] 100 mg PO HS 06/04/18 Meclizine HCl 25 mg PO PRN PRN 06/04/18 Melatonin [Meladox] 3 mg PO HS 06/04/18 Tamsulosin HCl [Flomax] 0.4 mg PO DAILY 06/04/18 Fluticasone Prop 0.05% Nasal [Flonase -] 1 - 2 spray NS BID 06/05/18 This patient is new to me today: Yes Date on this admission: 06/06/18 Emergency Visit: Yes ED Registration Date: 06/04/18 Care time: The patient presented to the Emergency Department on the above date and was hospitalized for further evaluation of their emergent condition. Critical Care patient: No - Discharge Referral Referred to [facility] Med P.C.: No
[2018-06-06 10:40] VITALS: BP 145/56; PULSE 74; TEMP 98.2
[2018-06-06 12:00] LABS: ANION GAP 8 MMOL/L (8-16); BLOOD UREA NITROGEN 31 mg/dL (7-18); CALCIUM 8.1 mg/dL (8.5-10.1); CHLORIDE 107 mmol/L (98-107); CO2 23 mmol/L (21-32); CREATININE 1.5 mg/dL (0.55-1.3); GLUCOSE,RANDOM 202 mg/dL (74-106); POTASSIUM 4.6 mmol/L (3.5-5.1); SODIUM 139 mmol/L (136-145)
--- NOTE | 2018-06-06 12:38 | PN ---
Teaching Attending Note Name of Resident: Daquan Panda ATTENDING PHYSICIAN STATEMENT I saw and evaluated the patient. I reviewed the resident's note and discussed the case with the resident. I agree with the resident's findings and plan as documented. SUBJECTIVE: Patient is comfortable with no acute distress. No fever or chills. OBJECTIVE: Vital Signs Temperature 98.2 F 06/06/18 10:00 Pulse Rate 74 06/06/18 10:00 Respiratory Rate 18 06/06/18 10:00 Blood Pressure 145/56 L 06/06/18 10:00 O2 Sat by Pulse Oximetry (%) 98 06/05/18 23:00 GENERAL: The patient is awake, alert, in no acute distress. HEAD: Normal with no signs of trauma. EYES: PERRL, extraocular movements intact, sclera anicteric, conjunctiva clear. ENT: Ears normal, oropharynx clear without exudates, moist mucous membranes. NECK: Trachea midline, full range of motion, supple. LUNGS: Decreased Breath sounds at bases , clear to auscultation bilaterally, no wheezes, no crackles, no accessory muscle use. HEART: Regular rate and rhythm, S1, S2 without murmur, rub or gallop. ABDOMEN: Soft, nontender, nondistended, normoactive bowel sounds, no guarding, no rebound, no hepatosplenomegaly, no masses. EXTREMITIES: 2+ pulses, warm, well-perfused, no edema. NEUROLOGICAL: Cranial nerves II through XII grossly intact. Normal speech, gait not observed. PSYCH: Normal mood, normal affect. SKIN: Warm, dry, normal turgor, no rashes or lesions noted CBCD WBC 7.3 K/mm3 (4.0-10.0) 06/04/18 17:50 RBC 3.16 M/mm3 (4.00-5.60) L 06/04/18 17:50 Hgb 9.2 GM/dL (11.7-16.9) L 06/04/18 17:50 Hct 27.9 % (35.4-49) L D 06/04/18 17:50 MCV 88.4 fl (80-96) 06/04/18 17:50 MCHC 33.1 g/dl (32.0-35.9) 06/04/18 17:50 RDW 14.9 % (11.9-15.9) 06/04/18 17:50 Plt Count 179 K/MM3 (134-434) D 06/04/18 17:50 MPV 8.8 fl (7.5-11.1) 06/04/18 17:50 CMP Sodium 139 mmol/L (136-145) 06/06/18 10:55 Potassium 4.6 mmol/L (3.5-5.1) 06/06/18 10:55 Chloride 107 mmol/L (98-107) 06/06/18 10:55 Carbon Dioxide 23 mmol/L (21-32) 06/06/18 10:55 Anion Gap 8 MMOL/L (8-16) 06/06/18 10:55 BUN 31 mg/dL (7-18) H 06/06/18 10:55 Creatinine 1.5 mg/dL (0.55-1.3) H 06/06/18 10:55 Creat Clearance w eGFR 45.50 (>60) 06/06/18 10:55 Random Glucose 202 mg/dL (74-106) H 06/06/18 10:55 Calcium 8.1 mg/dL (8.5-10.1) L 06/06/18 10:55 Total Bilirubin 0.3 mg/dL (0.2-1) 06/04/18 22:07 AST 13 U/L (15-37) L 06/04/18 22:07 ALT 19 U/L (13-61) 06/04/18 22:07 Alkaline Phosphatase 64 U/L (45-117) 06/04/18 22:07 Total Protein 6.9 g/dl (6.4-8.2) 06/04/18 22:07 Albumin 3.0 g/dl (3.4-5.0) L 06/04/18 22:07 CARDIAC ENZYMES Creatine Kinase 39 IU/L (26-308) 06/04/18 17:50 Troponin I 0.03 ng/ml (0.00-0.05) 06/04/18 17:50 Current Medications Generic Name Dose Route Start Last Admin Trade Name Freq PRN Reason Stop Dose Admin Amlodipine Besylate 10 mg 06/05/18 10:00 06/06/18 09:56 Norvasc - PO 10 mg DAILY [facility] Administration Aspirin 81 mg 06/05/18 10:00 06/06/18 09:56 Asa - PO 81 mg DAILY [facility] Administration Atorvastatin Calcium 20 mg 06/05/18 22:00 06/05/18 23:00 Lipitor - PO 20 mg HS [facility] Administration Escitalopram Oxalate 10 mg 06/05/18 10:00 06/06/18 09:56 Lexapro - PO 10 mg DAILY [facility] Administration Gabapentin 100 mg 06/05/18 22:00 06/05/18 23:00 Neurontin - PO 100 mg HS [facility] Administration Heparin Sodium (Porcine) 5,000 unit 06/05/18 06:00 06/06/18 06:34 Heparin - SQ Not Given TID [facility] Insulin Aspart 1 vial 06/05/18 07:00 06/06/18 12:27 Novolog Vial Sliding Scale - SQ Not Given TIDAC [facility] Protocol Meclizine HCl 25 mg 06/05/18 00:22 Antivert - PO Q12H PRN VERTIGO Metoprolol Tartrate 25 mg 06/05/18 10:00 06/06/18 09:56 Lopressor - PO 25 mg BID [facility] Administration Ranolazine 500 mg 06/05/18 10:00 06/06/18 09:56 Ranexa - PO 500 mg BID [facility] Administration Rivastigmine 1 each 06/05/18 10:00 06/06/18 09:57 Exelon Patch 9.5 Mg/24 Hours - TD 1 each DAILY [facility] Administration Tamsulosin HCl 0.4 mg 06/05/18 08:30 06/06/18 09:56 Flomax - PO 0.4 mg DAILY@0830 [facility] Administration Home Medications Medication Instructions Recorded Aspirin [ASA -] 81 mg PO DAILY 10/25/17 Escitalopram Oxalate [Lexapro -] 10 mg PO DAILY 10/25/17 Glipizide 5 mg PO DAILY 10/25/17 Linagliptin [Tradjenta] 5 mg PO DAILY 10/25/17 Loperamide HCl [Imodium A-D] 2 mg PO DAILY 10/25/17 [place]-3 Fatty Acids [[place]-3] 2,000 mg PO BID 10/25/17 Polyvinyl Alcohol [Artificial 1 drop OP DAILY 10/25/17 Tears] Pravastatin Sodium [Pravachol -] 80 mg PO HS 10/25/17 Ranolazine [Ranexa] 500 mg PO BID 10/25/17 Rivastigmine [Exelon Patch 9.5 1 each TD DAILY 10/25/17 mg/24 Hours -] Amlodipine Besylate [Norvasc -] 10 mg PO DAILY tablet 10/28/17 Metoprolol Tartrate [Lopressor -] 25 mg PO Q12H tablet 10/28/17 Cholecalciferol (Vitamin D3) 50,000 unit PO WEEKLY 06/04/18 [Dialyvite Vitamin D3 Max] Gabapentin [Neurontin -] 100 mg PO HS 06/04/18 Meclizine HCl 25 mg PO PRN PRN 06/04/18 Melatonin [Meladox] 3 mg PO HS 06/04/18 Tamsulosin HCl [Flomax] 0.4 mg PO DAILY 06/04/18 Fluticasone Prop 0.05% Nasal 1 - 2 spray NS BID 06/05/18 [Flonase -] ASSESSMENT AND PLAN: Patient is a 78yo male with PMHx of ESRD on HD, CAD, angina, HTN, presented to ED. with shortness of breath and was found to have elevated Potassium of 6.2. #Acute exacerbation of diastolic CHF: improved , given 60mg po Lasix x 1 dose yesterday since he pulled his IV line . Discussed with analog circuit designer. #Hyperkalemia in the setting of CKD stage 3A: improved , 4.6 potassium today #Possible UTI: Asymptomatic LE3+ WBC 30, s/p one dose ceftriaxone #CAD s/p quadruple bypass and stents: on aspirin, metoprolol, statin continue home meds #HTN: continue Norvasc, metoprolol #HLD: continue Statin #Stable angina: continue Ranexa #DM: SS with coverage, Hold oral hypoglycemic # Peripheral neuropathy continue Gabapentin #CKD stage 3A: Creatinine is at baseline #Anemia likely of chronic disease secondary to chronic renal failure: monitor H/ H #BPH: continue flomax #Vertigo: continue Meclizine #depression: continue lexapro 10mg po daily #Hx of Dementia diabetic/sodium controlled diet discharge patient back to rehab.
--- NOTE | 2018-06-06 13:08 | PN ---
Progress Note (short form) - Note Progress Note: d/p chf exacerbation/ HFpEF copd ckd s/p hyperkalemia dm hld vertigo BPH depression Current Medications Amlodipine Besylate (Norvasc -) 10 mg PO DAILY [facility] Last Admin: 06/06/18 09:56 Dose: 10 mg Aspirin (Asa -) 81 mg PO DAILY [facility] Last Admin: 06/06/18 09:56 Dose: 81 mg Atorvastatin Calcium (Lipitor -) 20 mg PO HS [facility] Last Admin: 06/05/18 23:00 Dose: 20 mg Escitalopram Oxalate (Lexapro -) 10 mg PO DAILY [facility] Last Admin: 06/06/18 09:56 Dose: 10 mg Furosemide (Lasix -) 40 mg PO DAILY [facility] Gabapentin (Neurontin -) 100 mg PO HS [facility] Last Admin: 06/05/18 23:00 Dose: 100 mg Heparin Sodium (Porcine) (Heparin -) 5,000 unit SQ TID [facility] Last Admin: 06/06/18 06:34 Dose: Not Given Insulin Aspart (Novolog Vial Sliding Scale -) 1 vial SQ TIDAC [facility]; Protocol Last Admin: 06/06/18 12:27 Dose: Not Given Meclizine HCl (Antivert -) 25 mg PO Q12H PRN PRN Reason: VERTIGO Metoprolol Tartrate (Lopressor -) 25 mg PO BID [facility] Last Admin: 06/06/18 09:56 Dose: 25 mg Ranolazine (Ranexa -) 500 mg PO BID [facility] Last Admin: 06/06/18 09:56 Dose: 500 mg Rivastigmine (Exelon Patch 9.5 Mg/24 Hours -) 1 each TD DAILY [facility] Last Admin: 06/06/18 09:57 Dose: 1 each Tamsulosin HCl (Flomax -) 0.4 mg PO DAILY@0830 [facility] Last Admin: 06/06/18 09:56 Dose: 0.4 mg Last Vital Signs Temp Pulse Resp BP Pulse Ox 98.2 F 74 18 145/56 L 98 06/06/18 10:00 06/06/18 10:00 06/06/18 10:00 06/06/18 10:00 06/05/18 23:00 lying flat no complaints lungs clear heart wnl abd soft nontender ext no edema CBC, BMP 06/04/18 17:50 09/30/18 10:55 IMP- acute sob/ high BNP responded to lasix may need cardiac regimen to be adjusted terminal makeup operator needs to follow up with computer systems hardware analyst recommend to d/c on lasix 40 po od follow labs on lasix outpatient Polypharmacy needs to be reviewed
[2018-06-06] MEDS ORDERED: FUROSEMIDE 40 MG TABLET (FP) PO SCH (13:30)
== END 2018-06-06 18:08 ==
LOC: JER 16:15 → JERBED 18:49 → J4W 06-05 03:15
PROVIDERS: ADMIT Internal Medicine; ATTEND Internal Medicine
PROC: 3E033VG Introduction of Insulin into Peripheral Vein, Percutaneous Approach (ICD-10-PCS; principal; 2018-06-04)
PROC: 3E033GC Introduction of Other Therapeutic Substance into Peripheral Vein, Percutaneous Approach (ICD-10-PCS; 2018-06-04)
PROC: 3E03329 Introduction of Other Anti-infective into Peripheral Vein, Percutaneous Approach (ICD-10-PCS; 2018-06-04)
PROC: 3E0337Z Introduction of Electrolytic and Water Balance Substance into Peripheral Vein, Percutaneous Approach (ICD-10-PCS; 2018-06-04)
DX: E87.5 Hyperkalemia (principal); E11.8 Type 2 diabetes mellitus with unspecified complications; I50.33 Acute on chronic diastolic (congestive) heart failure; E11.22 Type 2 diabetes mellitus with diabetic chronic kidney disease; I12.9 Hypertensive chronic kidney disease with stage 1 through stage 4 chronic kidney disease, or unspecified chronic kidney disease; N18.3 Chronic kidney disease, stage 3 (moderate); E78.5 Hyperlipidemia, unspecified; G30.9 Alzheimer's disease, unspecified; F02.80 Dementia in other diseases classified elsewhere, unspecified severity, without behavioral disturbance, psychotic disturbance, mood disturbance, and anxiety; I25.118 Atherosclerotic heart disease of native coronary artery with other forms of angina pectoris; D64.9 Anemia, unspecified; J44.9 Chronic obstructive pulmonary disease, unspecified; K58.9 Irritable bowel syndrome, unspecified; R79.89 Other specified abnormal findings of blood chemistry; G62.9 Polyneuropathy, unspecified; N40.0 Benign prostatic hyperplasia without lower urinary tract symptoms; N39.0 Urinary tract infection, site not specified; R06.02 Shortness of breath; Z79.82 Long term (current) use of aspirin; Z79.84 Long term (current) use of oral hypoglycemic drugs; Z95.1 Presence of aortocoronary bypass graft
CPT/HCPCS: 36415; 71045-TC-FY; 80048; 80053; 81003; 81015; 82550; 82962; 83880; 84484; 85027; 85610; 85730; 87086; 93005; 93010; 96365; 96375; 99285-25; G0378; J1644